=== PATIENT | female | born 1965 | race Caucasian/White ===

== ENCOUNTER 2021-06-11 21:15 | Emergency (ER) | payer OTHER, SELFPAY ==
--- NOTE | ~2021-06-11 | XR_ITS ---
EXAMINATION: XR chest 1V portable DATE: 06/11/2021 22:40 INDICATION: Shortness of breath. Wheezing. TECHNIQUE: A single frontal view of the chest was obtained. COMPARISON: Chest 2 views 11/24/2008 FINDINGS: There is no pneumonia, pleural effusion, or pneumothorax. Calcified left hilar lymph nodes are consistent with old granulomatous disease. The heart size is normal. IMPRESSION: 1. No acute cardiopulmonary disease. Reviewed, dictated and finalized at location A.
[2021-06-11 21:29] VITALS: BP 150/79; PULSE 98; RESP 28; TEMP 35.8; O2SAT 94; O2SAT 95
--- NOTE | 2021-06-11 21:32 | ECG_ITS ---
Measurements Intervals [place] Rate: 92 P: 82 WA: 155 QRS: 91 QRSD: 82 T: 75 QT: 340 QTc: 422 Interpretive Statements SINUS RHYTHM POSSIBLE LEFT ATRIAL ENLARGEMENT [-0.1mV P-WAVE IN V1/V2] BORDERLINE RIGHT AXIS DEVIATION [QRS AXIS > 90] POSSIBLE RIGHT VENTRICULAR CONDUCTION DELAY [RSR (QR) IN V1/V2] NO PREVIOUS ECG AVAILABLE FOR COMPARISON Electronically Signed On 06-12-2021 16:55:19 CDT by Todd Luciano M.D.
[2021-06-11 21:40] VITALS: PULSE 90; RESP 25; O2SAT 99
[2021-06-11] MEDS: IPRATROPIUM 0.5 MG/ALBUTEROL SULFATE 2.5 MG AMPUL.NEB 3 ML INHALATION (21:40)
[2021-06-11 21:45] VITALS: BP 112/61; PULSE 88; RESP 18; O2SAT 99
[2021-06-11 21:48] VITALS: PULSE 88; RESP 20; O2SAT 99
[2021-06-11 21:58] LABS: Base Excess ABG 0.9 mmol/L (0-2); HCO3 ABG 25.5 mmol/L (23-29); Oxygen Content ABG 16.5 %vol (16.0-22.0); Oxygen Saturation ABG 92.1 % (95-97); Oxyhemoglobin 91.5 % (94-100); PCO2 ABG 40.5 mmHg (35-45); PO2 ABG 63.5 mmHg (80-90); Total Hemoglobin 12.8 g/dL (12.0-18.0); pH ABG 7.42 (7.35-7.45)
[2021-06-11] MEDS: methylPREDNISolone SOD SUCC 125 MG VIAL IM (21:58)
[2021-06-11 22:00] LABS: Modified Allen's Test Pass; Site Drawn RIGHT RADIAL
[2021-06-11 22:01] LABS: Device ROOM AIR
[2021-06-11 22:02] LABS: Hematocrit 38.8 % (35.0-49.0); Hemoglobin 12.3 g/dL (12.0-15.0); Mean Corpuscular HGB Conc 31.7 g/dL (32.0-36.0); Mean Corpuscular Hemoglobin 29.8 pg (27.0-31.0); Mean Corpuscular Volume 93.9 fL (78.0-102.0); Mean Platelet Volume 8.7 fl (9.2-11.8); Platelet Count Result 350 K/mm3 (150-420); Red Blood Count 4.13 M/mm3 (4.20-5.40); White Blood Count 8.2 K/mm3 (4.8-10.8)
[2021-06-11 22:19] LABS: Alanine Aminotransferase 28 U/L (14-59); Albumin Level 3.2 g/dL (3.4-5.0); Alkaline Phosphatase 137 U/L (46-116); Anion Gap 6 mmol/L (8-16); Aspartate Amino Transferase 14 U/L (15-37); Bilirubin,Total 0.2 mg/dL (0.00-1.00); Blood Urea Nitrogen 13 mg/dL (7-18); Calcium 8.8 mg/dL (8.5-10.1); Carbon Dioxide 29 mmol/L (21-32); Chloride 103 mmol/L (98-108); Estimated CRCL calculation 77 ml/min; Estimated Glomerular Filt Rate > 60; Glucose 101 mg/dL (70-99); Osmolality Calculated 286 mOsm/kg (285-295); Potassium 3.9 mmol/L (3.5-5.1); Sodium 138 mmol/L (136-145); Troponin I 7.9 ng/L (0.00-60.4)
[2021-06-11 22:45] LABS: Basophils Absolute Manual 0.16 K/mm3 (0-0.1); Basophils Percent Manual 2 % (0-1); Eosinophils Absolute Manual 0.32 K/mm3 (0.02-0.5); Eosinophils Percent Manual 4 % (1-6); Lymphocytes Percent Manual 50 % (18-44); Monocytes Absolute Manual 0.73 K/mm3 (0.1-0.90); Monocytes Percent Manual 9 % (3-9); Neutrophils Percent Manual 35 % (46-73); Platelet Estimate Adequate (Adequate); Total Cells Counted 100
[2021-06-11 23:20] VITALS: PULSE 88; RESP 20; O2SAT 99
[2021-06-11 23:27] VITALS: PULSE 89; RESP 20; O2SAT 99
[2021-06-11] MEDS: LIDOCAINE HCL 1% LOCAL INJ 20 ML VIAL (23:32)
[2021-06-11] MEDS: cefTRIAXone 1 GM VIAL IM (23:33)
--- NOTE | 2021-06-11 23:43 | ED.ASTHMA ---
HPI - Asthma General Chief Complaint: Asthma Stated Complaint: whezzing trouble breathing Time Seen by Provider: 06/11/21 21:17 Source: patient, RN notes reviewed and old records reviewed Mode of arrival: ambulatory Limitations: no limitations History of Present Illness complaint: asthma attack Onset (ago): day(s) (1) Severity: moderate Associated symptoms: productive cough Treatments Prior to Arrival: inhaled bronchodilator and inhaled steroid Related Data Home Medications Medication Instructions Recorded Confirmed buspirone 5 mg tablet 5 mg PO ONCE tablet 05/11/20 cariprazine 1.5 mg capsule 1.5 mg PO DAILY 05/11/20 cyclobenzaprine 10 mg tablet 10 mg PO TID 05/11/20 estradiol 0.5 mg tablet 0.5 mg PO DAILY 05/11/20 06/11/21 gabapentin 300 mg capsule 300 mg PO BID 05/11/20 metformin 500 mg tablet 500 mg PO BID 05/11/20 06/11/21 topiramate 50 mg tablet 50 mg PO ONCE tablet 05/11/20 albuterol sulfate 90 mcg INHALATION DIRECTED 06/11/21 atorvastatin [Lipitor] 10 mg PO DIRECTED 06/11/21 06/11/21 Allergies Allergy/AdvReac Type Severity Reaction Status Date / Time No Known Allergies Allergy Verified 06/11/21 21:30 Review of Systems Review of Systems: All systems reviewed & are unremarkable except as noted in HPI and below PMFSH Past Medical History Medical History Asthma with acute exacerbation Bronchitis Social History Social History Smoking status: Never smoker Alcohol intake: never Substance use: never Exam Const: General: no acute distress and alert Nutritional Appearance: well nourished Orientation/consciousness: patient oriented x3 Limitations: no limitations HENMT: Ears: external ears normal, TM's normal bilaterally and EAC's normal General nose exam: Normal external nose present and Normal nares present Face and sinus: normal facial exam Mouth: Yes lip normal and Yes moist mucous membranes Teeth and gingiva: dentition normal Eyes: Conjunctivae: conjunctivae normal Pupils: Equal, round and reactive pupils present EOM: EOMs intact bilaterally Neck: Neck: normal visual inspection and no lymphadenopathy Chest: Chest palpation & inspection: normal inspection of the chest Resp: Effort & Inspection: tachypneic Cardio: Rate: regular rate Rhythm: regular rhythm GI: GI Palp: Yes Soft to palpation and No Tenderness to palpation present (GI) Auscultation: normal bowel sounds : General: Yes bladder normal to palpation and Yes no CVA tenderness Back/Spine/Pelvis: Back: no CVA tenderness Skin: General skin exam: normal color Neuro: General: patient oriented x3, moves all extremities, no meningeal signs, no focal motor deficits and CN's II-XI intact bilaterally Extrem: General: normal to inspection and no pedal edema Psych: Mental Status: mental status grossly normal Affect: normal affect Attitude: cooperative Thought content: No Suicidality present Course Course Emergency Course: Pt was stable in the ED with less wheezing. Reevaluation(s) Reevaluation #1: VSS Date: 06/11/21 Time: 22:13 Vital Signs Vital signs: Vital Signs Temperature 35.8 C L 06/11/21 21:29 Pulse Rate 98 06/11/21 21:29 Respiratory Rate 28 H 06/11/21 21:29 Blood Pressure 150/79 H 06/11/21 21:29 Pulse Oximetry 94 06/11/21 21:29 Temperature 35.8 C L 06/11/21 21:29 Pulse Rate 89 06/11/21 23:27 Respiratory Rate 20 06/11/21 23:27 Blood Pressure 150/79 H 06/11/21 21:29 Pulse Oximetry 99 06/11/21 23:27 MDM - Asthma Differential Diagnosis Differential diagnosis: Likely Acute exacerbation and Acute asthmatic bronchitis Medical Records Attestation: I reviewed the patient's medical records. Lab Data Attestation: I reviewed the patient's lab results. Result diagrams: 06/11/21 21:56 06/11/21 21:56 Labs: Lab Results
[2021-06-12] MEDS: IPRATROPIUM 0.5 MG/ALBUTEROL SULFATE 2.5 MG AMPUL.NEB 3 ML INHALATION (00:04)
[2021-06-12 00:07] VITALS: BP 113/84; PULSE 85; RESP 18; O2SAT 97
== END 2021-06-12 00:12 | disposition home or self-care (01) ==
PROVIDERS: Emergency Provider Emergency Medicine; PCP Physician Assistant
DX: J40 Bronchitis, not specified as acute or chronic (principal); J45.41 Moderate persistent asthma with (acute) exacerbation
CPT/HCPCS: 36415; 36600; 71045; 80053; 82805; 84484; 85025; 93005; 94640; 96372; 99284; J0696; J2930

== ENCOUNTER 2024-01-25 11:12 | Emergency (ER) | payer OTHER, SELFPAY ==
[2024-01-25 11:19] VITALS: BP 131/68; PULSE 90; RESP 22; TEMP 37.8; O2SAT 96
[2024-01-25 11:52] LABS: EDCOVIDSCREEN Negative (Negative); EDINFLUASCREEN Negative (Negative); EDINFLUBSCREEN Negative (Negative)
--- NOTE | 2024-01-25 12:26 | ED.GENADULT ---
HPI - General Adult General Chief complaint: Upper Respiratory Infection Stated complaint: Rash/Shortness of Breath Source: patient Mode of arrival: ambulatory Limitations: no limitations History of Present Illness HPI narrative: Patient presents for evaluation of multiple symptoms. Her 1st concern is regarding itching she is noted to her left forearm over last 3-4 days. She now has some symptoms starting in the right forearm. She notes ?blisters under the skin? which then evolve into scabbed lesions. She has tried an OTC eczema cream and also hydrocortisone without much improvement. No new lotions, soaps, detergents or topical products. 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 She is also concerned about sick symptoms that started around the same time. Symptoms include fever, headache, nasal congestion, clear postnasal drainage, cough, mild SOB which she attributes to asthma, nausea, and vomiting. Denies diarrhea. She does not smoke. Related Data Home Medications Medication Instructions Recorded Confirmed metformin 500 mg tablet 500 mg PO BID 05/11/20 01/25/24 armodafinil 250 mg tablet 250 mg PO DAILY 10/18/21 01/25/24 atorvastatin 20 mg tablet 20 mg PO DAILY 01/25/24 01/25/24 fluticasone furoate 100 1 inh inhalation DAILY 01/25/24 01/25/24 mcg-vilanterol 25 mcg/dose inhalation powder Allergies Allergy/AdvReac Type Severity Reaction Status Date / Time No Known Allergies Allergy Verified 01/25/24 11:47 Review of Systems Review of Systems: CONSTITUTIONAL: Reports fever. Denies chills, or sweats. EYES: Denies visual changes, redness, or discharge. ENT: Reports sinus congestion, clear postnasal drainage and sore throat CARDIOVASCULAR: Denies chest pain, palpitations, or edema. RESPIRATORY: Reports cough and mild SOB GASTROINTESTINAL: Denies abdominal pain, nausea, vomiting, or diarrhea. GENITOURINARY: Denies dysuria or hematuria. SKIN: Denies rash or itching. MUSCULOSKELETAL: Denies back pain, joint pain, or myalgia. NEUROLOGIC: Reports headache. Denies numbness, dizziness, or weakness. PSYCHIATRIC: Denies anxiety or depression. 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 HEAD: Normocephalic, atraumatic. EYES: PERRLA and EOMI. ENT: Nares clear, no rhinorrhea or epistaxis. Mucous membranes moist. Oropharynx without tonsillar hypertrophy exudate or other lesions. Bilateral TMs pearly del cid nonbulging NECK: Supple. No adenopathy or masses. No carotid bruits or JVD CHEST: Clear to auscultation. No respiratory distress. No wheezes rales or rhonchi HEART: Regular rate and rhythm. No murmur heard. Normal peripheral pulses. ABDOMEN: Soft, nontender, nondistended, normal active bowel sounds. EXTREMITIES: Normal range of motion. No edema. SKIN: There are several pinpoint areas of erythema to the bilateral forearms, left greater than right. There are also several scabbed lesions noted to bilateral forearms NEURO: No focal deficits. Alert and oriented x3. PSYCH: Normal mood and affect. Course Course Emergency Course: This is a 58-year-old female who presented for evaluation of multiple symptoms. Her rash seems to be scabies. I will provide her with a prescription for permethrin. Her influenza and COVID test were negative. I ordered a chest x-ray but shortly after ordering it she did not want to stay to have it performed. Will provide her with abx coverage that should cover skin and respiratory pathogens and cover her with prednisone Follow up with primary provider. Go to the ER for worsening symptoms. Pt in agreement with plan of care. Level of Care: Express Care Visit Vital Signs Vital signs: Vital Signs Temperature 37.8 C H 01/25/24 11:19 Pulse Rate 90 01/25/24 11:19 Respiratory Rate 22 H 01/25/24 11:19 Blood Pressure 131/68 01/25/24 11:19 Pulse Oximetry 96 01/25/24 11:19 Oxygen Delivery Room Air 01/25/24 11:19 Temperature 37.8 C H 01/25/24 11:19 Pulse Rate 90 01/25/24 11:19 Respiratory Rate 22 H 01/25/24 11:19 Blood Pressure 131/68 01/25/24 11:19 Pulse Oximetry 96 01/25/24 11:19 Oxygen Delivery Room Air 01/25/24 11:19 Medical Decision Making Vital Signs Vital Signs: Vital Signs Temperature 37.8 C H 01/25/24 11:19 Pulse Rate 90 01/25/24 11:19 Respiratory Rate 22 H 01/25/24 11:19 Blood Pressure 131/68 01/25/24 11:19 Pulse Oximetry 96 01/25/24 11:19 Oxygen Delivery Room Air 01/25/24 11:19 Temperature 37.8 C H 01/25/24 11:19 Pulse Rate 90 01/25/24 11:19 Respiratory Rate 22 H 01/25/24 11:19 Blood Pressure 131/68 01/25/24 11:19 Pulse Oximetry 96 01/25/24 11:19 Oxygen Delivery Room Air 01/25/24 11:19 Lab Data Labs: Lab Results 01/25/24 Range/Units 11:40 POC Influenza A Ag Negative (Negative) POC Influenza B Ag Negative (Negative) POC SARS CoV-2 Ag Negative (Negative) Discharge Plan Discharge Clinical Impression: Rash, History of asthma Patient Disposition: Home, Self-Care Condition: Stable Instructions: Antibiotic Form, Asthma (ED), Acute Rash (ED) Patient Language: Hungarian Prescriptions: New prednisone 50 mg tablet 50 mg PO DAILY Qty: 5 0RF amoxicillin-pot clavulanate 875-125 mg tablet 1 tablet PO Q12H Qty: 20 0RF permethrin 5 % cream 1 applic topical Q14D Qty: 60 0RF Rx Instructions: apply second treatment 14 days after first treatment if live lice remain No Action albuterol sulfate 90 mcg/actuation HFA aerosol inhaler 2 puff inhalation Q4H PRN (Reason: shortness of breath or wheezing) Qty: 8.5 0RF atorvastatin 20 mg tablet 20 mg PO DAILY fluticasone furoate-vilanterol 100-25 mcg/dose blister with device 1 inh INHALATION DAILY metformin 500 mg tablet 500 mg PO BID armodafinil 250 mg tablet 250 mg PO DAILY Follow-up/Referrals: Hamida,CINDI Fletcher [Primary Care Provider] - Time of Disposition: 12:53
== END 2024-01-25 12:55 | disposition home or self-care (01) ==
PROVIDERS: Emergency Provider Nurse Practitioner; PCP Physician Assistant
DX: R21 Rash and other nonspecific skin eruption (principal); J45.909 Unspecified asthma, uncomplicated; Z20.822 Contact with and (suspected) exposure to COVID-19
CPT/HCPCS: 87426; 87804; 99213; G0463

== ENCOUNTER 2024-05-26 16:25 | Outpatient (CLI) | payer OTHER, SELFPAY ==
[2024-05-26 16:43] LABS: Basophils Absolute Auto 0.05 K/mm3 (0.00-0.10); Basophils Percent Auto 0.3 % (0.0-1.0); Eosinophils Absolute Auto 0.22 K/mm3 (0.02-0.50); Eosinophils Percent Auto 1.5 % (1.0-6.0); Hematocrit 39.5 % (35.0-49.0); Hemoglobin 12.9 g/dL (12.0-15.0); Immature Granulocyte Absolute 0.06 K/mm3 (0.00-0.00); Immature Granulocyte Percent A 0.4 % (0.0-0.0); Lymphocytes Absolute Auto 3.52 K/mm3 (1.10-4.50); Mean Corpuscular HGB Conc 32.7 g/dL (32-36); Mean Corpuscular Hemoglobin 28.8 pg (27.0-31.0); Mean Corpuscular Volume 88.2 fL (78.0-102.0); Mean Platelet Volume 8.5 fl (9.2-11.8); Monocytes Absolute Auto 1.24 K/mm3 (0.10-0.90); Monocytes Percent Auto 8.4 % (2.0-11.0); Neutrophils Percent Auto 65.4 % (50.0-70.0); Platelet Count Result 395 K/mm3 (150-420); Red Blood Count 4.48 M/mm3 (4.20-5.40); Red Cell Distribution Width 13.2 % (11.6-14.4); White Blood Count 14.7 K/mm3 (4.8-10.8)
[2024-05-26 17:02] LABS: Hemoglobin A1C 7.9 % (<5.7)
[2024-05-26 17:03] LABS: Alanine Aminotransferase 27 U/L (14-59); Albumin Level 3.6 g/dL (3.4-5.0); Alkaline Phosphatase 178 U/L (46-116); Anion Gap 12 mmol/L (4-12); Aspartate Amino Transferase 11 U/L (15-37); Bilirubin,Total 0.3 mg/dL (0.00-1.00); Blood Urea Nitrogen 10 mg/dL (7-18); Calcium 9.4 mg/dL (8.5-10.1); Carbon Dioxide 28 mmol/L (21-32); Chloride 98 mmol/L (98-108); Cholesterol 173 mg/dL (0-200); Estimated Glomerular Filt Rate > 60; Glucose 102 mg/dL (70-99); HDL Direct 75 mg/dL (40-60); LDL Cholesterol Calculated 76 mg/dL (<130); Osmolality Calculated 285 mOsm/kg (285-295); Potassium 3.8 mmol/L (3.5-5.1); Sodium 138 mmol/L (136-145); Total Protein 7.4 g/dL (6.4-8.2); Triglycerides 110 mg/dL (0-150)
--- OUTSIDE RECORDS SUMMARY | 2024-05-26 17:06 | XMS_ITS | Clinical Summary ---
Author Organization [facility] Address [address] [facility], [place] [address] Phone Care Team Providers Care Lead Mobile Developer Name Role Phone Claudia Gonzalez APRN, ACADEMIC SERVICES PROFESSIONAL Unavailable [phone] Allergies No known active allergies Medications armodafinil (NUVIGIL) 150 MG Tablet armodafinil 150 mg tablet Active ergocalciferol (VITAMIN D) 54251 UNIT Capsule TAKE 1 CAPSULE BY MOUTH ONCE A WEEK 0 Active estradiol (ESTRACE) 1 MG Tablet estradiol 1 mg tablet Active gabapentin (NEURONTIN) 300 MG Capsule gabapentin 300 mg capsule Active metFORMIN (GLUCOPHAGE) 500 MG Tablet metformin 500 mg tablet Active Topiramate 50 MG Tablet TAKE 1 TABLET BY MOUTH ONCE DAILY 0 Active VIIBRYD STARTER PACK 10 & 20 MG Kit TAKE DIRECTED EVERY DAY PER PACKAGE DIRECTIONS 0 Active medroxyPROGESTE Gary (PROVERA) 2.5 MG Tablet TAKE 1 TABLET BY MOUTH ONCE DAILY 0 Active Active Problems Problem Noted Date Diagnosed Date Low testosterone level in female 07/02/2019 Menopause 07/02/2019 Class 1 obesity due to exces s calories with serious comorbidity and body mass index (BMI) of 30.0 to 30.9 in adult 07/02/2019 Type 2 diabetes mellitus wit h diabetic polyneuropathy, without long-term current use of insulin 07/02/2019 Family History Medical History Relation Name Comments No Known Problems Brother 1 No Known Problems Brother 2 Heart Attack Father Stroke Maternal Grandmother Cancer Mother Throat cancer Relation Name Status Comments Brother 1 Alive Brother 2 Alive Father Maternal Grandmother Mother Alive Social History Tobacco Use Types Packs/Day Years Used Date Smoking Tobacco: Former Cigarettes Smokeless Tobacco: Never Tobacco Cessation:Counseling Given: No Alcohol Use Standard Drinks/Week Comments Not Currently 0 (1 standard drink = 0.6 oz pur e alcohol) Sexually Active Control Partners Comments Yes Male Comments No Sex and Gender Information Value Date Recorded Sex Assigned at Not on file Legal Sex Female 9:26 AM CDT Gender Identity Not on file Sexual Orientation Not on file Last Filed Vital Signs Vital Sign Reading Time Taken Comments Blood Pressure 124/78 07/02/2019 1:14 PM CDT Pulse 99 07/02/2019 1:14 PM CDT Temperature 36.2 C (97.2 F) 07/02/2019 1:14 PM CDT Respiratory Rate 16 07/02/2019 1:14 PM CDT Oxygen Saturation 94% 07/02/2019 1:14 PM CDT Inhaled Oxygen Concentration - - Weight 82.6 kg (182 lb) 07/02/2019 1:14 PM CDT Height 165.1 cm (5' 5 ) 07/02/2019 1:14 PM CDT Body Mass Index 30.29 07/02/2019 1:14 PM CDT Plan of Treatment Health Maintenance Due Date Last Done Comments Diabetes: Eye Exam 1965 Diabetes: Foot Exam 1965 Hepatitis C Virus (HCV) Screening 1965 TdaP Immunization 1965 Pneumococcal Immunization (5 0+ years) (1 of 2 - PCV) 11/23/1982 Colonoscopy 11/23/2008 Colorectal Cancer Screening 11/23/2008 Cologuard 11/23/2013 Immunochemical Fecal Occult Blood 11/23/2013 Zoster Immunization (1 of 2) 11/23/2013 Diabetes: Hemoglobin A1c 09/22/2019 03/24/2019 Diabetes: Nephropathy Screening 03/24/2020 0 Influenza Immunization (#1) 2023 SARS-COV-2 Immunization ( - season) 2023 Respiratory Syncytial Virus (RSV) Immunization (Adult) (1 - Risk 60-74 years 1-dose series) 2023 Hepatitis B Immunization Aged Out No longer eligible based on patient's age to complete this topic Meningococcal Immunization (ACWY) Aged Out No longer eligible based on patient's age to complete this topic Rotavirus Immunization Aged Out No lo nger eligible based on patient's age to complete this topic Procedures Procedure Name Priority Date/Time Associated Diagnosis Comments CMP (COMPREHENSIVE METABOLIC PANEL) Routine 03/24/2019 HEMOGLOBIN, A1C Routine 03/24/2019 from Last 3 Months or Most Recently Relevant to Health Maintenance Results * HEMOGLOBIN, A1C (03/24/2019) HGB-A1C 6.5 % Blood 03/24/2019 Holley Patel APRN, CNP CHEMISTRY ORDERABLES F inal Result * CMP (COMPREHENSIVE METABOLIC PANEL) (03/24/2019) Blood us Holley Patel APRN, CNP CHEMISTRY ORDERABLES F inal Result from Last 3 Months or Most Recently Relevant to Health Maintenance Insurance [employer] Care Teams Lead Mobile Developer Relationship Specialty Start Date End Date Claudia Gonzalez APRN, CNP [address] [place] [address] [place] [address] Job Development Specialist Family Medicine 05/05/19
--- OUTSIDE RECORDS SUMMARY | 2024-05-26 17:06 | XMS_ITS | Encounter Summary ---
Author Organization [facility] Address [address] [place] [address] Care Team Providers Care Teletypesetter Name Role Phone None, Provider Primary Care Provider Unavaila ble Justine Mei Primary Care Provider [phone] Encounter Details Date Type Department Care Team (Latest Contact Info) Description 10/24/2017 Abstract [facility] , Generic Conversion, Social History Tobacco Use Types Packs/Day Years Used Date Smoking Tobacco: Never Assessed Comments Unknown Sex and Gender Information Value Date Recorded Sex Assigned at Not on file Legal Sex Female 8:55 PM CDT Gender Identity Not on file Sexual Orientation Not on file documented as of this encounter Plan of Treatment Not on file documented as of this encounter Visit Diagnoses Not on filedocumented in this encounter Care Teams Teletypesetter Relationship Specialty Start Date End Date None, Provider, PCP - General 12/17/17 02/12/18 Justine Mei PA [address] [place] [address] PCP - General 02/13/18 documented as of this encounter
--- OUTSIDE RECORDS SUMMARY | 2024-05-26 17:06 | XMS_ITS | Continuity of Care Document ---
Author Organization [facility] Address [address] [place] [address] [place] [address] Phone Care Team Providers Care Tax Processor Name Role Phone Joseph Torres MD Unavailable Unavailable Allergies, Adverse Reactions, Alerts Substance Reaction Status Criticality No Known Allergies Active No Inform ation Medications Medication Instructions Dosage Effective Dates (start - stop) Status Comments atorvastatin 10 mg tablet take 1 tablet by oral route every day 10 MG - Active armodafinil 250 mg tablet take 1 tablet by oral route every day in the morning 250 MG - Active fluoxetine 20 mg capsule take 1 capsule by oral route every day in the morning 20 MG - Active topiramate 50 mg tablet take 1 tablet by oral route every day 50 MG - Active Vraylar 3 mg capsule take 1 capsule by o ral route every day 3 MG - Active metformin 500 mg tablet take 1 tablet by oral route 2 times every day with morning and evening meals 500 MG - Active losartan 50 mg tablet take 1 tablet by o ral route every day 50 MG - Active Procedures Procedure Date No Charge Optomap Fundus Photos 022 Eye Exam, New Patient Advance Directives Directive Yes / No Effective Date File Name No Information Encounters Encounter Description Practice Location Reason(s) For Visit Diagnoses Date Provider Providers Copied on Encounter [facility], [id number] [place] [address] [address], [place], [place], [id number], [place] tel:[phone] SEC Javed PRATHER Professional Diabetic eye exam (chief complaint) Type 2 diabetes mellitus without complications Combined forms of age-related cataract, bilateral 2 Torres Joseph. [address] [facility], [facility], [place], [place], [id number], . tel:[phone] Referring Provider: Rosie Mahmood OD, [facility] [address] [place] [address], [address]. tel:[phone] [facility], [address], [place], [place], [id number], tel:[phone] SEC Javed PA Professional No Information 2 Brian Ruiz. [address] [facility], [facility], [place], [place], [id number], [place]. tel:[phone] Referring Provider: Rosie Mahmood OD, [address], [address]. tel:[phone] Family History Family Member Type Diagnosis Age At Onset Problem Family history of Diabetes bambi marquez Payers Payer name Insurance type Covered republican ID Cristóbal richey(s) [employer] SOI CI [id number] Social History Type Description Quantity Date Captured Comments Alcohol Use Details No Caffeine Use Details coffee and tea Tobacco Use Status Current non-smoker Smoking Status Never smoker Non-Smoking Tobacco Use Details : No Details Available : No Details Available Sex Female Chief Complaint And Reason For Visit From encounter dated '06/26/2021 08:00'. Diabetic eye exam (chief complaint). Description: The 55 year old patient presents for evaluation of Diabetic eye exam in the right eye and left eye. Patient states night VA sometimes is blurry, eyesare dry, and eyelids are drooping. Patient is a Type 2 diab x 3 years, BS checked last night @ 180,a1c 5.6, and her PCP treats her diab, Patient does not known the doctors name she located at [facility] in [place]. Reason For Referral Reason For Referral No Information Plan Of Treatment Date Type Action Status Patient Education Learning About Your Eye s completed History Of Present Illness Encounter Date Complaint History Of Prese nt Illness Diabetic eye exam The 55 year ol d patient presents for evaluation of Diabetic eye exam in the right eye and left eye. Patient states night VA sometimes is blurry, eyes are dry, and eyelids are drooping. Patient is a Type 2 diab x 3 years, BS checked last night @ 180, a1c 5.6, and her PCP treats her diab, Patient does not known the doctors name she located at [facility] in [place]. Functional Status Date Functional Assessmen t No Information Instructions Date Instruction Additional Infor mation Impression/Plan Assessments Type Assessment Date assessment Type 2 diabetes mellitus without complications assessment Combined forms of age-related ca taract, bilateral Patient Care Teams Name Effective Dates (start - stop) Status Members No Information
--- OUTSIDE RECORDS SUMMARY | 2024-05-26 17:07 | XMS_ITS | Data Portability ---
Author Organization [facility] LORNAHelga Address [address] [place] [address] Care Team Providers Care Disk Grinder Name Role Phone CLAUDIA COLVIN Police Magistrate COLLEEN SINGH Primary Care Provider Assessment No assessment recorded. Plan of Treatment Reminders Order Date Submit Date Provider Last Modified By Organization Details Last Modified Time Details Appointments None record ed. 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, respir atory specim - [place] @ no 10/20 020 [facility] (Lab), [address] [place], [address], 0 09:55:30 CMP, serum or plasma 2019 020 [facility], [address] [facility] [address], [address], 0 13:07:51 CBC 2019 020 VANESSA [facility], [address] [facility] 2, [place], [address], 0 13:07:52 TSH, serum or plasma 2019 020 V[facility], [address] [facility], [facility] 2, [place], [address], 0 13:07:53 lipid panel, serum 2019 020 VANESSA [facility], [address] [facility], [facility] 2, [place], [address], 0 13:07:53 HbA1c (hemog lobin A1c), blood 2019 020 VANESSA In-Office Order, Internal Use Only DO Not Attach Compendium DO Not Attach Compendium, Do Not Delete/merge, [id number] 0 11:20:12 pap, IG + HPV 2019 020 [id number] [facility], [address] [facility], [facility] 2, [place], [address], 1 03:32:30 Referral urogyn ecolog ist referr al 2019 020 VANESSA Not available 0 13:38:40 endocr inolog y referr al 2019 020 [facility], 2 [facility] [address], [place], [address], 0 08:43:26 Procedures None record ed. Surgeries None record ed. Imaging XR, chest, 2 view 2020 021 VANESSA Alvarez (Radiology), 1 [facility] [place], [address], 1 14:26:59 exerci se stress test 2020 021 VANESSA [facility] (Radiology), 1 [facility] [place], [address], 1 14:06:17 MAMMO, screen ing, digita l, bilate ral 2019 020 [email or web address] Alvarez (Radiology), 1 [facility] [place], [address], 0 11:25:54 Medication Orders ciprof loxaci n 0.3 % eye drops [address] [facility], [address] [place] [address], [address], 1 16:16:33 Advair Diskus 250 mcg-50 mcg/do se powder for inhala tion [address] [facility], [address] [place] [address], [address], 1 16:16:23 albute rol sulfat e HFA 90 mcg/ac tuatio n aeroso l inhale r 2019 020 INTERFACE [facility] [address] [place], [address], 0 16:01:42 amoxic illin 875 mg tablet 2019 INTERFACE [facility] [place], [address], 0 16:01:51 ceftri axone 1 gram soluti on for inject ion 2019 [email or web address] Not available 0 15:52:44 Patient TargetsNo targets recorded. Patient Instructions Encounter Date Encounter Id Patient Instructions Last Modified By Organization Details Last Modified Time 05/01/2019 [id number] mammogram: about this test rosy Not available 05/01/2019 11:25:54 bladder training: care instructions [email or web address] Not available 05/01/2019 10:54:24 kegel exercises: care instructions [email or web address] Not available 05/01/2019 10:54:24 Stress Incontinence: Care Instructions [email or web address] Not available 05/01/2019 10:54:24 05/27/2019 [id number] learning about type 2 diabetes jnanney Not available 05/27/2019 10:51:28 type 2 diabetes: care instructions jnanney Not available 05/27/2019 10:51:28 10/20/2019 [id number] Reviewed the following recommendations: -Stay home and separate from others as much as possible. -Monitor your symptoms and seek medical attention for trouble breathing, persistent chest pain, confusion, or bluish lips or face. -Wear a mask if you must be around other people. -Wash your hands often for 20 seconds with soap and water and clean high-touch surfaces daily -You may discontinue home isolation if your symptoms are improving, it has been 10 days since symptoms started, and you have been fever free for at least 3 days. [email or web address] Not available 10/20/2019 16:11:34 Reason for Referral Urogynecologist Referral for Female stress incontinence Referring Physician: Claudia Colvin, Telegraph Dispatcher, Encounter Date: 05/01/2019 Endocrinology Referral for T estosterone level below reference range Referring Physician: Claudia Colvin, Telegraph Dispatcher, Encounter Date: 05/01/2019 Results Created Date Observation Date Name Description Value Unit Range Abnormal Flag Note LastModifiedBy Organization Detail LastModifiedTime 05/01/1905/05/2019 pap, IG + HPV diagnosis: Jesus ARCOS FOR INTRA EPITH ELIJARET [place] OR RUBEN LOPES . Not Available [facility] ([facility]) [address] [facility], [place], [address], 05/05/2019 11:08:59 05/01/1905/05/2019 pap, IG + HPV specimen adequacy: Jesus haq Satis facto ry for evalu ation . Endoc ervic al and/o r squam ous metap lasti c cells (endo cervi arin compo nent) are prese nt. Not Available [facility] ([facility]) [address] [facility], [place], [address], 05/05/2019 11:08:59 05/01/19 20 05/05/2019 pap, IG + HPV clinician provided ICD10: Jesus haq Z01.4 19 Not Available [facility] ([facility]) [address] [facility], [place], [address], 05/05/2019 11:08:59 05/01/19 20 05/05/2019 pap, IG + HPV performed by: Commen t Shelli M Panfilo , Cytot echno logis t (ASCP ) Not Available [facility] ([facility]) [address] [facility], [place], [address], 05/05/2019 11:08:59 05/01/19 20 05/05/2019 pap, IG + HPV . . Not Available [facility] ([facility]) [address] [facility], [place], [address], 05/05/2019 11:08:59 05/01/19 20 05/05/2019 pap, IG + HPV note: Commen t The Pap smear is a scree hilda test desig stoney to aid in the detec tion of kulwant ligna nt and malig nant condi tions of the uteri ne cervi x. It is not a diagn ostic proce dure and shoul d not be used as the sole means of detec ting cervi arin cance r. Both false -posi tive and false -nega tive repor ts do occur . Not Available [facility] ([facility]) [address] [facility], [place], [address], 05/05/2019 11:08:59 05/01/19 20 05/05/2019 pap, IG + HPV test methodology: Commen t This liqui d based ThinP rep(R ) pap test was scree stoney with the use of an image guide alejandra lacy. Not Available [facility] ([facility]) [address] [facility], [place], [address], 05/05/2019 11:08:59 05/01/19 20 05/05/2019 pap, IG + HPV HPV aptima Negati ve negati ve This nucle ic acid ampli ficat ion test detec ts fourt een high- risk HPV types (16,1 8,31, 33,35 ,39,4 5,51, 52,56 ,58,5 9,66, 68) witho ut diffe renti ation . Not Available [facility] ([facility]) [address] [facility], [place], [address], 05/05/2019 11:08:59 05/27/19 20 05/28/2019 CMP, serum or plasm a glucose 136 mg/dL 65-99 above high normal Not Available [facility] ([facility]) [address] [place], [address], 05/29/2019 13:07:51 05/27/19 20 05/28/2019 CMP, serum or plasm a BUN 10 mg/dL 6-24 Not Available [facility] ([facility]) [address] [place], [address], 05/29/2019 13:07:51 05/27/19 20 05/28/2019 CMP, serum or plasm a creatinine 0.71 mg/dL 0.57-1 .00 Not Available [facility] ([facility]) [address] [place], [address], 05/29/2019 13:07:51 05/27/19 20 05/28/2019 CMP, serum or plasm a eGFR if nonafricn AM 96 mL/mi n/1.7 3 >59 Not Available [facility] ([facility]) [address] [place], [address], 05/29/2019 13:07:51 05/27/19 20 05/28/2019 CMP, serum or plasm a eGFR if africn AM 111 mL/mi n/1.7 3 >59 Not Available [facility] ([facility]) [address] [place], [address], 05/29/2019 13:07:51 05/27/19 20 05/28/2019 CMP, serum or plasm a BUN/creatini ne ratio 14 9-23 Not Available [facility] ([facility]) [address] [place], [address], 05/29/2019 13:07:51 05/27/19 20 05/28/2019 CMP, serum or plasm a sodium 143 mmol/ L 134-14 4 Not Available [facility] ([facility]) [address] [place], [address], 05/29/2019 13:07:51 05/27/19 20 05/28/2019 CMP, serum or plasm a potassium 4.6 mmol/ L 3.5-5. 2 Not Available [facility] ([facility]) [address] [facility] [place], [address], 05/29/2019 13:07:51 05/27/19 20 05/28/2019 CMP, serum or plasm a chloride 103 mmol/ L 96-106 Not Available [facility] ([facility]) [address] [place], [address], 05/29/2019 13:07:51 05/27/1905/28/2019 CMP, serum or plasm a carbon dioxide, total 25 mmol/ L 20-29 Not Available [facility] ([facility]) [address] [place], [address], 05/29/2019 13:07:51 05/27/19 20 05/28/2019 CMP, serum or plasm a calcium 9.4 mg/dL 8.7-10 .2 Not Available [facility] ([facility]) [address] [place], [address], 05/29/2019 13:07:51 05/27/19 20 05/28/2019 CMP, serum or plasm a protein, total 6.9 g/dL 6.0-8. 5 Not Available [facility] ([facility]) [address] [place], [address], 05/29/2019 13:07:51 05/27/19 20 05/28/2019 CMP, serum or plasm a albumin 4.1 g/dL 3.8-4. 9 Not Available [facility] ([facility]) [address] [place], [address], 05/29/2019 13:07:51 05/27/19 20 05/28/2019 CMP, serum or plasm a globulin, total 2.8 g/dL 1.5-4. 5 Not Available [facility] ([facility]) [address] [facility] [place], [address], 05/29/2019 13:07:51 05/27/19 20 05/28/2019 CMP, serum or plasm a A/G ratio 1.5 1.2-2. 2 Not Available [facility] ([facility]) [address] [facility] [place], [address], 05/29/2019 13:07:51 05/27/19 20 05/28/2019 CMP, serum or plasm a bilirubin, total <0.2 mg/dL 0.0-1. 2 Not Available [facility] ([facility]) [address] [facility], [place], [address], 05/29/2019 13:07:51 05/27/19 20 05/28/2019 CMP, serum or plasm a alkaline phosphatase 108 IU/L 39-117 Not Available [facility]) [address] [facility] [place], [address], 05/29/2019 13:07:51 05/27/19 20 05/28/2019 CMP, serum or plasm a AST (SGOT) 14 IU/L 0-40 Not Available [facility] ([facility]) [address] [facility] [place], [address], 05/29/2019 13:07:51 05/27/19 20 05/28/2019 CMP, serum or plasm a ALT (SGPT) 14 IU/L 0-32 Not Available [facility] ([facility]) [address] [facility] [place], [address], 05/29/2019 13:07:51 05/27/19 20 05/28/2019 CBC WBC 4.6 x10e3 /uL 3.4-10 .8 Not Available [facility] ([facility]) [address] [facility] [place], [address], 05/29/2019 13:07:52 05/27/1905/28/2019 CBC RBC 4.32 x10e6 /uL 3.77-5 .28 Not Available [facility] ([facility]) [address] [facility], [place], [address], 05/29/2019 13:07:52 05/27/19 20 05/28/2019 CBC hemoglobin 13.3 g/dL 11.1-1 5.9 Not Available [facility] ([facility]) [address] [facility], [place], [address], 05/29/2019 13:07:52 05/27/1905/28/2019 CBC hematocrit 39.7 % 34.0-4 6.6 Not Available [facility] ([facility]) [address] [facility], [place], [address], 05/29/2019 13:07:52 05/27/1905/28/2019 CBC MCV 92 fL 79-97 Not Available [facility] ([facility]) [address] [facility], [place], [address], 05/29/2019 13:07:52 05/27/1905/28/2019 CBC MCH 30.8 pg 26.6-3 3.0 Not Available [facility] ([facility]) [address] [facility], [place], [address], 05/29/2019 13:07:52 05/27/1905/28/2019 CBC MCHC 33.5 g/dL 31.5-3 5.7 Not Available [facility] ([facility]) [address] [place], [address], 05/29/2019 13:07:52 05/27/1905/28/2019 CBC RDW 13.0 % 11.7-1 5.4 Not Available [facility] ([facility]) [address] [place], [address], 05/29/2019 13:07:52 05/27/1905/28/2019 CBC platelets 372 x10e3 /uL 150-45 0 Not Available [facility] ([facility]) [address] [facility], [place], [address], 05/29/2019 13:07:52 05/27/19 20 05/28/2019 CBC NRBC ELECTRONIC WARFARE 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 Not Available [facility] ([facility]) [address] [facility], [place], [address], 05/29/2019 13:07:52 05/27/19 20 05/28/2019 lipid panel , serum cholesterol, total 179 mg/dL 100-19 9 Not Available [facility] ([facility]) [address] [facility], [place], [address], 05/29/2019 13:07:53 05/27/19 20 05/28/2019 lipid panel , serum triglyceride s 94 mg/dL 0-149 Not Available [facility]) [address] [facility], [place], [address], 05/29/2019 13:07:53 05/27/19 20 05/28/2019 lipid panel , serum HDL cholesterol 71 mg/dL >39 Not Available [facility]) [address] [facility], [place], [address], 05/29/2019 13:07:53 05/27/19 20 05/28/2019 lipid panel , serum VLDL cholesterol arin 19 mg/dL 5-40 Not Available [facility] ([facility]) [address] [facility], [place], [address], 05/29/2019 13:07:53 05/27/19 20 05/28/2019 lipid panel , serum LDL cholesterol calc 89 mg/dL 0-99 Not Available [facility] ([facility]) [address] [place], [address], 05/29/2019 13:07:53 05/27/19 20 05/28/2019 lipid panel , serum comment: ELECTRONIC WARFARE OFFICER Not Available [facility] ([facility]) [address] [facility], [place], [address], 05/29/2019 13:07:53 05/27/1905/29/2019 TSH, serum or plasm a TSH-icma 1.6 uu/mL Refer ence Range : Non-P regna nt Adult 0.450 -4.50 0 Pregn kimberly First Trime ster 0.100 -4.00 0 Secon d Trime ster 0.200 -4.00 0 Third Trime ster 0.300 -4.50 0 Not Available [facility] [address] [facility], [place], [address], 05/29/2019 13:07:53 05/27/19 20 05/28/2019 cardi ovasc ular asses sment panel , serum interpretati on Note Suppl ement al repor t is avail able. Not Available [facility] ([facility]) [address] [facility], [place], [address], 05/29/2019 13:07:54 05/27/19 20 05/28/2019 cardi ovasc ular asses sment panel , serum pdf image . Not Available [facility] ([facility]) [address] [facility], [place], [address], 05/29/2019 13:07:54 05/27/19 20 05/27/2019 HbA1c (hemo globi n A1c), blood HbA1c 6.6 Not Available In-Office Order Internal Use Only DO Not Attach Compendium DO Not Attach Compendium, Do Not Delete/merge, [id number] 05/27/2019 10:49:17 05/30/1906/14/2019 fecal occul t blood , immun oassa y, stool occult blood, fecal, ia Negati ve negati ve Not Available [facility] ([facility]) [address] [facility], [place], [address], 06/15/2019 15:07:48 05/30/19 20 06/12/2019 one speci men ident ifier one specimen identifier Commen t The speci men recei brea inclu ded only one patie nt ident ifier on the prima ry colle ction conta iner. Our labor atory accre ditin g agenc y state s All prima ry speci men conta iners must be label ed with 2 ident ifier s at the time of colle ction . 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 A negat junito resul t does not precl ude the possi bilit y of 2019- nCoV infec tion since the adequ acy of sampl e colle ction and/o r low viral burde n may resul t in the prese nce of viral nucle ic acids level s below the gary tical sensi tivit y of this test metho d. 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 This test is only autho rized for the durat ion of the decla ratio n and the circu mstan karen that exist to justi fy the autho rizat ion of the emerg ency use of in vitro diagn ostic tests for the detec tion of SARS- CoV-2 virus and/o r diagn osis of COVID -19 infec tion under secti on 564 (b) (1) of the Act. 11 U.S.C . 360bb b-3 (b) (1), unles s the autho rizat ion is termi nated or revok ed soone r. 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 This testi ng was perfo rmed in the [facility] [place] [address] (CLIA Licen se #[id number], CAP #[id number], AU-ID #[id number]). 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 [address] [place], [address], 05/05/2020 16:44:44 04/21/19 21 04/20/2020 XR, chest , 2 view No observ ation record ed. [address] [place], [address], 04/22/2020 17:00:56 Result Notes None recorded. Problems Name Problem SNOMED Code Status Onset Date Resolution Date Notes Provider Name and Address Organization Details Recorded Time Pain in pelvis [id number] Active Not Available [facility] 01/13/2020 15:46:24 Problem Notes None recorded. Procedures Surgical History Date Name Laterality Status Provider Name and Address Organization Details Recorded Time 0 Date of Last Mammogram completed Raysa Noe [place] - [facility] 03/18/2020 15:28:20 0 Date of Last Pap Smear completed Raysa Noe MA [place] - [facility] 03/18/2020 15:28:14 5 Most Recent Mammogram completed Neeru Nguyen [place] - [facility] 08/18/2015 10:43:32 Tubal Ligation completed Neeru Nguyen [place] - [facility] 08/18/2015 10:43:32 Imaging Results Imaging Date Name Status LastModified by Organiz ation Details LastModified Time 04/20/2020 exercise stress test completed [address] [place], [address], 05/05/2020 16:44:44 04/20/2020 XR, chest, 2 view completed [address] [place], [address], 04/22/2020 17:00:56 Procedure Notes None recorded. Medical Equipment None Reported. Allergies No known drug allergies Medications Name Sig Start Date Stop Date Status Note LastModified by Organization Details LastModified Time fluoxetine 40 mg capsule 05/08 completed Not Available Not Available Not Available cyclobenzap rine 10 mg tablet TAKE 1 TABLET BY MOUTH THREE TIMES DAILY active Not Available Not Available No t Available buspirone 5 mg tablet Take 1 tablet twice a day by oral route for 30 days. active Not Available Not Available No t Available metformin 500 mg tablet TAKE 1 TABLET BY MOUTH TWICE DAILY (WITH MORNING MEAL AND WITH EVENING MEAL) active Not Available Not Available No t Available paroxetine 10 mg tablet TAKE 1 TABLET BY MOUTH EVERY DAY AT BEDTIME 03/18 completed Not Available Not Available Not Available clindamycin HCl 300 mg capsule Take 1 capsule every 6 hours by oral route for 10 days. active Not Available Not Available No t Available trazodone 50 mg tablet 05/08 completed Not Available Not Available Not Available azithromyci n 250 mg tablet TAKE 2 TABLETS BY MOUTH ON DAY 1 AND THEN TAKE 1 TABLET BY MOUTH ONCE A DAY ON DAY 2 THROUGH DAY 5 active Not Available Not Available No t Available medroxyprog esterone 2.5 mg tablet Take 1 tablet every day by oral route. 10/18 completed Not Available Not Available Not Available prednisone 20 mg tablet TAKE 3 TABLETS BY MOUTH ONCE DAILY FOR 7 DAYS 03/18 completed Not Available Not Available Not Available sertraline 100 mg tablet TAKE 1 TABLET BY MOUTH AT BEDTIME AFTER COMPLETIN G THE 2 WEEKS AT 75 MG active Not Available Not Available No t Available prednisone 5 mg tablet 05/08 completed Not Available Not Available Not Available clindamycin HCl 150 mg capsule 08/03 completed Not Available Not Available Not Available topiramate 25 mg tablet 10/18 completed Not Available Not Available Not Available ciprofloxac in 500 mg tablet Take 1 tablet every 12 hours by oral route for 10 days. 03/18 completed Not Available Not Available Not Available triamcinolo ne acetonide 0.1 % topical cream 05/26 completed Not Available Not Available Not Available acyclovir 800 mg tablet Take 1 tablet 5 times a day by oral route for 5 days. 03/18 completed Not Available Not Available Not Available cyproheptad ine 4 mg tablet 05/08 completed Not Available Not Available Not Available meloxicam 7.5 mg tablet 10/18 completed Not Available Not Available Not Available alprazolam 0.5 mg tablet 10/18 completed Not Available Not Available Not Available Guaiatussin AC 10 mg-100 mg/5 mL oral liquid Take 10 mL every 4 hours by oral route. 03/25 completed Not Available Not Available Not Available ceftriaxone 1 gram solution for injection Take 1 g by injection route. 10/18 completed Not Available Not Available Not Available amoxicillin 875 mg tablet Take 1 tablet every 12 hours by oral route for 10 days. active Not Available Not Available No t Available estradiol 1 mg tablet Take 1 tablet by mouth once daily. PLEASE CALL OFFICE FOR APPOINTME NT 2020 active Not Available Not Available Not Avai lable ciprofloxac in 0.3 % eye drops INSTILL 1 DROP INTO AFFECTED Ear tid for 7 days active Not Available Not Available No t Available OneTouch Ultra Test strips TEST BLOOD SUGAR EVERY DAY BEFORE BREAKFAST AND AFTER LUNCH OR DINNER active Not Available Not Available No t Available benzonatate 100 mg capsule 10/18 completed Not Available Not Available Not Available levothyroxi ne 50 mcg tablet 05/08 completed Not Available Not Available Not Available paroxetine 20 mg tablet 10/18 completed Not Available Not Available Not Available fluoxetine 20 mg tablet 05/08 completed Not Available Not Available Not Available metformin 1,000 mg tablet TAKE 1 TABLET BY MOUTH TWICE DAILY (WITH MORNING MEAL AND WITH EVENING MEAL) active Not Available Not Available No t Available buspirone 10 mg tablet 05/26 completed Not Available Not Available Not Available Advair Diskus 250 mcg-50 mcg/dose powder for inhalation Inhale 1 puff twice a day by inhalatio n route. active Not Available Not Available No t Available gabapentin 300 mg capsule TAKE 1 CAPSULE BY MOUTH ONCE DAILY active Not Available Not Available No t Available sertraline 25 mg tablet TAKE 1 2 (ONE HALF) TABLET BY MOUTH AT BEDTIME FOR 1 WEEK THEN 1 TABLET DAILY FOR 1 WEEK active Not Available Not Available No t Available hydrocortis one 2.5 % topical cream APPLY A THIN LAYER TO THE AFFECTED AREA(S) BY TOPICAL ROUTE 2 TIMES PER DAY 03/25 completed Not Available Not Available Not Available montelukast 10 mg tablet 10/18 completed Not Available Not Available Not Available hydroxyzine HCl 25 mg tablet 05/08 completed Not Available Not Available Not Available estradiol 0.5 mg tablet TAKE ONE TABLET BY MOUTH ONCE DAILY DIRECTED 05/08 completed Not Available Not Available Not Available methylpredn isolone 4 mg tablets in a dose pack 03/25 completed Not Available Not Available Not Available albuterol sulfate HFA 90 mcg/actuati on aerosol inhaler INHALE 2 PUFFS BY MOUTH EVERY 4 TO 6 HOURS NEEDED active Not Available Not Available No t Available Vitamin D2 1,250 mcg (50,000 unit) capsule active Not Available Not Available Not Available fluoxetine 20 mg capsule TAKE ONE CAPSULE BY MOUTH ONCE DAILY IN THE MORNING 10/18 completed Not Available Not Available Not Available fluticasone propionate 50 mcg/actuati on nasal spray,suspe nsion [place] 1 spray every day by intranasa l route as directed. 05/26 completed Not Available Not Available Not Available sertraline 50 mg tablet TAKE 1 & 1 2 (ONE & ONE HALF) TABLETS BY MOUTH ONCE DAILY FOR 2 WEEKS active Not Available Not Available No t Available amoxicillin 875 mg-potassiu m clavulanate 125 mg tablet Take 1 tablet every 12 hours by oral route for 10 days. 10/18 completed Not Available Not Available Not Available azithromyci n 500 mg tablet Take 1 tablet every day by oral route for 3 days. 03/18 completed Not Available Not Available Not Available Prempro 0.45 mg-1.5 mg tablet Take 1 tablet every day by oral route. 10/07 completed Not Available Not Available Not Available bupropion HCl XL 300 mg 24 hr tablet, extended release 05/08 completed Not Available Not Available Not Available topiramate 50 mg tablet TAKE 1 TABLET BY MOUTH ONCE DAILY active Not Available Not Available No t Available OneTouch UltraMini kit active Not Available Not Available Not Available Vyvanse 30 mg capsule TAKE 1 CAPSULE BY MOUTH ONCE DAILY IN THE MORNING active Not Available Not Available No t Available armodafinil 50 mg tablet 05/26 completed Not Available Not Available Not Available armodafinil 150 mg tablet 10/18 completed Not Available Not Available Not Available armodafinil 250 mg tablet TAKE 1 TABLET BY MOUTH ONCE DAILY IN THE MORNING active Not Available Not Available No t Available OneTouch Delkenny Lancets 33 gauge active Not Available Not Available Not Available Latuda 40 mg tablet 10/18 completed Not Available Not Available Not Available Viibryd 20 mg tablet 10/18 completed Not Available Not Available Not Available Latuda 20 mg tablet 05/26 completed Not Available Not Available Not Available Breo Ellipta 100 mcg-25 mcg/dose powder for inhalation INHALE 1 PUFF BY MOUTH ONCE DAILY AT THE SAME TIME EACH DAY active Not Available Not Available No t Available Fetzima 40 mg capsule,ext ended release 05/26 completed Not Available Not Available Not Available Fetzima 80 mg capsule,ext ended release 05/26 completed Not Available Not Available Not Available Viibryd 10 mg (7)-20 mg (23) tablets in a dose pack 10/18 completed Not Available Not Available Not Available Vraylar 1.5 mg capsule TAKE 1 CAPSULE BY MOUTH ONCE DAILY active Not Available Not Available No t Available Vraylar 3 mg capsule TAKE 1 CAPSULE BY MOUTH ONCE DAILY active Not Available Not Available No t Available Vitals Date Recorded Body height Body mass index (BMI) Body weight Systolic blood pressure Diastolic blood pressure Provider Name and Address Organization Details Last Updated DateTime 05/01/2019 165.1 cm 29.7 kg/m2 50160.63 g 138 mm[Hg] 80 mm[Hg] Neeru Nguyen MA [facility] 0 10:27:24 Date Recorded Body height Body mass index (BMI) Body weight Oxygen saturation Oxygen saturation in Arterial blood by Pulse oximetry Heart rate Body temperature Systolic blood pressure Diastolic blood pressure Provider Name and Address Organization Details Last Updated DateTime 0 165.1 cm 29.8 kg/m2 40517.0 3 g 95 % 95 % 70 /min 98.2 [degF] 108 mm[Hg] 68 mm[Hg] Bere Dominguez MA [facility] 0 10:19:23 Date Recorded Body height Body temperature Oxygen saturation Oxygen saturation in Arterial blood by Pulse oximetry Heart rate Body mass index (BMI) Body weight Systolic blood pressure Diastolic blood pressure Provider Name and Address Organization Details Last Updated DateTime 1 165.1 cm 96.6 [degF] 97 % 97 % 91 /min 29.6 kg/m2 13812.4 4 g 106 mm[Hg] 70 mm[Hg] Raysa Noe MA [facility] 1 15:30:25 Social History Question Answer Notes LastModified by Bookeenizat ion Details LastModified Time Tobacco Smoking Status Former Smoker Mony Hoffmann MA null, [facility] 10/19/2019 15:54:29 What Is Your Level Of Alcohol Consumption? None Information not available 10/19/2019 What Is Your Level Of Caffeine Consumption? Moderate Information not available 10/19/2019 How Much Tobacco Do You Chew? None Information not available 10/19/2019 Are You Currently Employed? Yes Information not available 10/19/2019 What Type Of Diet Are You Following? DIABETIC Information not available 10/19/2019 Which Illicit Or Recreational Drugs Have You Used? None Information not available 10/19/2019 Do You Or Have You Ever Used E-cigarettes Or Vape? 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 With Others Information not available 10/19/2019 What Was The Date Of Your Most Recent Tobacco Screening? 03/18/2020 Information not available 03/18/2020 Do You Or Have You Ever Used Smokeless Tobacco? Never Used Smokeless Tobacco Information not available 10/19/2019 General Stress Level High Information not available 03/18/2020 On What Date Was Tobacco Cessation Counseling Provided? 03/18/2020 Information not available 03/18/2020 Sex: Unknown Functional Status Question Answer Note LastModified by Organization D etails LastModified Time Are you able to care for yourself? Yes Information n ot available 10/19/2019 Mental Status None recorded. Family History Relationship Description Onset Age of this Age Resolved Age Notes LastModified by Organization Details LastModified Time Mother Disorder of thyroid gland [email or web address] Not available 11:05:50 Father Cerebrovascu lar accident [email or web address] Not available 08/18/2015 11:05:50 Medical History Condition Response Diabetes Y Gynecological History Statement/Question Response Abnormal Pap Y Date of Last Mammogram 07/20/2019 Sexually Active? Y HPV Vaccine N Date of Last Pap Smear 06/19/2019 Sexual Problems? Y Current Control Method Menopause Most Recent Mammogram 07/26/2014 LMP Unknown Desired Control Method None Obstetrics History GPAL:G 3 P 3 0 0 0 Type Value Full Term 3 Total 3 Past Encounters Encounter ID Performer Location Encounter Start Date Encounter Closed Date Diagnosis/Indication Diagnosis SNOMED-CT Code Diagnosis ICD10 Code Diagnosis Note [id number] GRANT Connor ([facility] [address] [place] [address] 08/18/2015 10:35:18 08/18/2015 11:18:34 Pain in pelvis 40776798 R10.2 Gynecologi c examination 26684243 Z01.933 [id number] LUDY Hinton ([facility] [address]) [address] [facility] [place] [address] 08/03/2016 10:35:06 08/16/2016 08:30:55 Menopausal syndrome 299942698 N95.9 [id number] LUDY Hinton [facility] [address] [place] [address] 05/08/2017 15:47:40 05/10/2017 12:24:36 Menopausal syndrome 847703891 N95.9 [id number] Colleen Singh PA-C [facility] [address] [place] [address] 06/21/2017 09:44:29 06/21/2017 10:39:36 Dysuria 97025003 R30.0 Increased frequency of urination 632093793 R35.0 Diabetes mellitus 384005 09 E11.9 Eczema 49472583 L20.89 [id number] Colleen Singh PA-C [facility] [address] [place] [address] 03/25/2018 11:11:03 03/25/2018 13:15:17 Diabetes mellitus 00266729 E11.9 Chronic le ft maxillary sinusitis 2524367552 8286097 J32.0 [id number] Dayan Amaro [facility] [address] [place] [address] 05/13/2018 11:42:33 05/13/2018 12:51:52 [id number] [facility] [address] [facility] [address] [place] [address] 09/03/2018 11:05:51 09/04/2018 08:37:20 Menopausal syndrome 064780365 N95.9 1. Discussed hormonal options and otc herbal options for menopausal management . Discussed risk factors and side effects associated with both options including increase risk of cancer, heart attack and stroke, blood clots. 2. Pt would like to continue use of hrt. 5. Pt to call and schedule for annual or sooner if needed. [id number] [facility] [address] [facility] [address] [place] [address] 05/01/2019 10:04:17 05/04/2019 10:56:00 Gynecologic examination 27548581 Z01.419 1. Counseled regarding prevention of STD's , condom use 2. Pap done and mammogram order given 3. Advised avoidance of tobacco, alcohol, and drugs . 4. Counseled regarding folic acid supplement ation, calcium needs and prevention of osteoporos is . 5. BSE reviewed and recommende d. 6. Follow up in one year or sooner if needed. Screening mammography 24 351208 Z12.31 Importance of yearly mammograms and sbe exam discussed with pt. Mammogram order given, pt verbalized understand ing. Female str ess incontinence 46864760 N39.3 Pt educated on causes and s/s of incontinen ce including but not limited to pt weight, pushing/pu lling/lift ing, vaginal deliveries and hysterecto my. Pt to follow up with urology at pt's request for referral. Testostero ne level below reference range 815482004 R79.89 Will obtain hrt tests that pt had done with pcp and refer to endo for further evaluation . [id number] CINDI Duncan [facility] [address] [place] [address] 05/27/2019 10:03:45 05/27/2019 11:39:37 Type 2 diabetes mellitus 37174950 E11.9 Acute bron chitis with bronchospasm 91434236 J20.9 [id number] Colleen Singh PA-C [facility] [address] [place] [address] 10/19/2019 10:06:20 10/19/2019 16:30:22 Moderate persistent asthma 974832823 J45.42 [id number] JALYN LOPEZ [address] [place] [address] 10/20/2019 15:19:36 10/21/2019 08:36:21 Suspected COVID-19 288391037 Z03.952 [id number] Colleen Singh PA-C [facility] [address] [place] [address] 03/18/2020 15:23:38 03/21/2020 08:53:53 Acute otitis externa of left ear 8684715621 133636 H60.512 Dyspnea on exertion 6084 5006 R06.09 Health Concerns Section Related Observation LastModified by Organization Detai ls LastModified Time None Recorded Concern Status LastModified by Organization Details LastModified Time None Recorded Advance Directives Directive None Recorded Payers Encounter Date Sequence Insurance Name Policy Number Policy Farooq Covered Member ID Farooq Member ID Guarantor Name 05/01/2019 1 [facility] [employer] CLAIMS ([facility]) PLAN Trinh Dickson [id number] Justine Dickson 05/27/2019 1 [employer] CLAIM[employer] ([facility] [employer]) PLAN A Justine Dickson [id number] Justine Dickson 10/19/2019 1 [employer] ([facility] [employer]) PLAN A Justine Dickson [id number] Justine Dickson 10/20/2019 1 [employer] ([facility] [employer]) PLAN A Justine Dickson [id number] Justine Dickson 03/18/2020 1 [employer] CLAIM[employer] ([facility] Picket) PLAN A Justine Dickson [id number] Justine Dickson Notes Date Note Type Note Provider Name and Address Organization Details Recorded Time 05/01/2019 text/html Annual GYNReport ed bypatient.History:no gynecologic complaints Menstrual cycle:no menses in over 2 years Urinary symptoms:No hematuria;Incontinence Vulva:No genital lesion Vagina:Normal vaginal discharge Breast:No breast pain; No breast lump; No nipple discharge Sexual complaints:No sexual complaints; No pain during intercourse; Normal libido Menopausal Symptoms:No menopausal symptoms; Normal vaginal lubrication Psychological symptoms:No depression; No anxiety; No PMDD Preventive measures:Encourage self breast examination; Encourage regular exercise; Encourage no tobacco use; Encourage regular mammograms starting age 40; Followed with Q3 year pap smear and high risk HPV typing; Needs to schedule mammogram - states she now sees [facility] in [place] for pcp. states that pcp did hormonal labs on her and they were off . pt will fax copy of labs to this provider- pt states she is doing well with hrt, only occasional hot flashes- last pap 08/18/15 normal- needs mammogram order- would like referral for urology, states she urinates all of the time and has no bladder control PITER Hinton-SHELIA Attn: Accounting[address] [place], [address], [facility] 05/01/2019 10:54:47 05/27/2019 text/html Wheezing, SOB, d ry cough, muscle weakness, clogged ears, headaches on bilateral tempels, fatigue..using albuterol once/day..symptoms for 3 days. no fever. history of getting PNA each year. had left over jack lou that she took and help. wheezing at rest. SOB with mild activity. Says symptoms aren't terrible right now but it's getting worse and she doesn't want repeats of years past. taking tylenol once every day. won't try ibuprofen r/t COVID. denies sneezing, nasal drainage, ear pain, chest pain, chills. diabetes..BG at home around 180s..follows with nursing director for hormone replacements. seasonal allergies. Colleen Singh PA-C Attn: [address] [place], [address], [facility] 05/27/2019 10:53:04 10/19/2019 text/html wheezin season....needs meds...tested at work...no covid. Colleen Singh PA-C Attn: [address] [place], [address], [facility] 10/19/2019 16:01:59 10/20/2019 text/html COVID ScreeningReported bypatient.Onset/Durati on of fever:no fever Associated Symptoms:shortness of breath; no cough ComorbiditiesDiabetesC OVID-19 Symptoms June 2019Reported bypatient.COVID-19 Signs and Symptomscough resolved; fever resolved; shortness of breath same; chills resolved; repeated shaking with chills resolved; muscle pain resolved; headache resolved; sore throat resolved; loss of taste or smell resolved; vomiting or diarrhea resolved; fatigue resolved; anorexia resolved Associated Symptoms:no sputum production; no wheezing; no runny nose; no vomiting; no diarrhea; no body aches; no nausea; no change in mental status; no hypotension; no tachycardia pt has a hx of diabetes and asthma and complained of sob yesterday STEFANIE DOWNING NP Attn: [address]ing[address] [place], [address], [facility] 10/20/2019 16:11:57 03/18/2020 text/html For the last wee k the patient has been having left ear pain that has been getting worse. She cleaned it out with peroxide then took a Q-tip to clean it out and there was a bit of blood so she has left it alone. When she was little had lots of ear infections, but has not had one for years. Nothing has made her pain better and she has not taken anything for the pain. The patient states she is already hard of hearing, but it now sounds like far away worse than her baseline.She also mentions that she has been coughing, wheezing, and fatigued recently. About a month ago she had abx, which resolves her problems, but they have returned. She states she can no longer walk out to her car and back without becoming SOB and need to sit down. The patient has been using her inhalers as need. She has a history of asthma since she was a young girl. Productive cough of white sputum. The patient also reports stress headaches due to having to go to work and cant breath.She reports that every since she has covid she has never fully recovered. She had covid at the end of december. The patient was not admitted. Reports a bad episode of covid. Her symptoms were headache and mouth sores. Still occasionally has mouth sores.States her vision is becoming blurry and needs to go to the eye doctor as she has DM and thinks it is getting worse.No sinus congestion, sore throat, and myalgias. Colleen Singh PA-C Attn: [address] [place], [address], [facility] 03/18/2020 16:20:24 OBGyn Episode No OBEpisode recorded.
--- OUTSIDE RECORDS SUMMARY | 2024-05-26 17:07 | XMS_ITS | Clinical Summary ---
Author Organization [facility] Address [address] [place] [address] Care Team Providers Care Field Sales Representative Name Role Phone Justine Mei Primary Care Provider [phone] Allergies Active Allergy Reactions Criticality Noted Date Comments Penicillins Unknown 11/12/2017 Medications busPIRone 10 MG tablet Take 1 tablet by mouth 2 (two) times daily. Active cyclobenzaprine 10 MG tablet Take 1 tablet by mouth 3 (three) times daily. Active cyproheptadine 4 MG tablet Take 1 tablet by mouth 3 (three) times daily as needed. Active Estradiol [address] vaginally daily. Active fluoxetine 20 MG capsule Take 3 capsules by mouth daily. Active Gabapentin, Once-Daily, 300 MG Tab Take 1 tablet by mouth 2 (two) times daily. Active meloxicam 7.5 MG tablet Take 1 tablet by mouth daily. Active metFORMIN 500 MG tablet Take 1 tablet by mouth 2 (two) times daily. Active Active Problems Problem Noted Date Diagnosed Date Anxiety with depression 12/04/2017 Cognitive dysfunction 12/04/2017 Poor short term memory 12/04/2017 Family History Medical History Relation Comments Depression Father Hypertension Mother Relation Status Comments Father Mother Social History Tobacco Use Types Packs/Day Years Used Date Smoking Tobacco: Never Smokeless Tobacco: Never Comments Unknown Sex and Gender Information Value Date Recorded Sex Assigned at Not on file Legal Sex Female 8:55 PM CDT Gender Identity Not on file Sexual Orientation Not on file Last Filed Vital Signs Vital Sign Reading Time Taken Comments Blood Pressure 140/66 02/13/2018 2:35 PM [employer]BUT[employer] CENTER MANAGER Pulse 93 02/13/2018 2:35 PM DISTRIBUT[employer] C[employer] MANAGER Temperature - - Respiratory Rate - - Oxygen Saturation - - Inhaled Oxygen Concentration - - Weight 83.5 kg (184 lb) 12/04/2017 12:33 PM CDT Height 165.1 cm (5' 5 ) 12/04/2017 12:33 PM CDT Body Mass Index 30.62 12/04/2017 12:33 PM CDT Plan of Treatment Health Maintenance Due Date Last Done Comments Cervical Cancer Screening Pa p Smear (Age 30 to 64) Every 3 Years 1963 Colorectal Cancer Screening Colonoscopy (10 Years) 1963 Annual Physical 11/23/1966 Hepatitis C 11/23/1981 DTaP, Tdap and Td Vaccines ( 1 - Tdap) 11/23/1982 Cervical Cancer Screening Pa p with HPV Testing (Age 30 to 64) Every 5 Years 11/23/1993 Cervical Cancer Screening with HPV 11/23/1993 Mammogram Screening 2003 Zoster Vaccines (1 of 2) 11/23/2013 COVID-19 Vaccine (2023-2 5 season) 2023 RSV Immunization or 60+ Years (1 - 1-dose 75+ series) 11/23/2038 Meningococcal B Vaccine Aged Out No l onger eligible based on patient's age to complete this topic Meningococcal Vaccine Aged Out No luis romulo eligible based on patient's age to complete this topic Pneumococcal Vaccine: Pediat rics (0 to 5 Years) and At-Risk Patients (6 to 64 Years) Aged Out No longer eligible b ased on patient's age to complete this topic RSV Immunizations Under 20 Months Aged Out No longer eligible based on patient's age to complete this topic Insurance [employer] Care Teams Field Sales Representative Relationship Specialty Start Date End Date Justine Mei PA [address] [place] [address] PCP - General 02/13/18
--- OUTSIDE RECORDS SUMMARY | 2024-05-26 17:07 | XMS_ITS | Encounter Summary ---
Author Organization [facility] Address [address] [place] [address] Care Team Providers Care Biological Photographer Name Role Phone None, Provider Primary Care Provider Unavaila ble Justine Mei Primary Care Provider Encounter Details Date Type Department Care Team (Late st Contact Info) Description 01/25/2018 Abstract [facility] Neuroscience [facility] [address] [place] [phone] Sagar Reed MD [address] [place] [id number] Social History Tobacco Use Types Packs/Day Years [...] on filedocumented in this encounter Care Teams Biological Photographer Relationship Specialty Start Date End Date None, Provider, PCP - General 12/17/17 02/12/18 Justine Mei PA [address] [place] [address] PCP - General 02/13/18 documented as of this encounter
[2024-05-26 17:13] LABS: Thyroid Stimulating Hormone Reflex 1.62 u/IU/mL (0.36-3.74)
[2024-05-28 01:48] LABS: Vitamin D 25 Hydroxy 23 ng/mL (30-100)
== END 2024-05-26 16:26 | disposition home or self-care (01) ==
LOC: CHSLAB 16:27
PROVIDERS: PCP Physician Assistant; Visit Provider Physician Assistant
DX: J45.40 Moderate persistent asthma, uncomplicated (principal)
CPT/HCPCS: 36415; 80053; 80061; 82306; 83036; 84443; 85025

== ENCOUNTER 2024-05-30 17:57 | Outpatient (CLI) | payer OTHER, SELFPAY ==
--- NOTE | ~2024-05-30 | XR_ITS ---
Clinical Indication: Shortness of breath PA and lateral views of the chest: Comparison: 06/11/2021 Findings: The lungs are clear, without evidence of focal consolidation or pleural effusion. Cardiome diastinal silhouette is within normal limits. Stable calcified left hilar lymph nodes. Bones and soft tissues are unremarkable. Impression: Clear lungs. No acute abnormality. Reviewed, dictated and finalized at location . Impression: Clear lungs. No acute abnormality.
--- OUTSIDE RECORDS SUMMARY | 2024-05-30 18:02 | XMS_ITS | Data Portability ---
Author Organization [facility] LORNAHelga Address [address] [place] [address] Care Team Providers Care Excellence Coach Name Role Phone CLAUDIA COLVIN Linux Network Engineer COLLEEN SINGH Primary Care Provider [phone] Assessment No assessment recorded. Plan of Treatment Reminders Order Date Submit Date Provider Last Modified By Organization Details Last Modified Time Details Appointments None record ed. Lab SARS CoV 2 RNA (COVID -19), QL, lidar scientist-PC R, respir atory specim - cresco @ no 10/20 020 [facility] (Lab), [address] [place], [address], 0 09:55:30 CMP, serum or plasma 2019 020 VANESSA [facility], [address] [facility] [address], [address], 0 13:07:51 CBC 2019 020 VANESSA [facility], [address] [facility] 2, [place], [address], 0 13:07:52 TSH, serum or plasma 2019 020 VANESSA [facility], [address] [facility], [facility], [place], [address], 0 13:07:53 lipid panel, serum 2019 020 VANESSA [facility], [address] [facility], [facility] 2, [place], [address], 0 13:07:53 HbA1c (hemog lobin A1c), blood 2019 020 VANESSA In-Office Order, Internal Use Only DO Not Attach Compendium DO Not Attach Compendium, Do Not Delete/merge, [id number] 0 11:20:12 pap, IG + HPV 2019 020 [id number] [facility], [address] [facility], [facility] 2, [place], [address], 1 03:32:30 Referral urogyn ecolog ist referr al 2019 020 VANESSA Not available 0 13:38:40 endocr inolog y referr al 2019 020 [facility] Barker, 2 [facility] [address], [place], [address], 0 08:43:26 Procedures None record ed. Surgeries None record ed. Imaging XR, chest, 2 view 2020 021 VANESSA Alvarez (Radiology), 1 [facility] [place], [address], 1 14:26:59 exerci se stress test 2020 021 VANESSA Alvarez (Radiology), [address] [facility] [place], [address], 1 14:06:17 MAMMO, screen ing, digita l, bilate ral 2019 020 deldredsmitsuzan Alvarez (Radiology), [address] [facility] [place], [address], 0 11:25:54 Medication Orders ciprof loxaci n 0.3 % eye drops 2020 021 INTERFACE [facility], [address] [place] [address], [address], 1 16:16:33 Advair Diskus 250 mcg-50 mcg/do se powder for inhala tion 2020 021 INTERFACE [facility], [address] [place] [address], [address], 1 16:16:23 albute rol sulfat e HFA 90 mcg/ac tuatio n aeroso l inhale r 2019 020 INTERFACE [facility] [address] [place], [address], 0 16:01:42 amoxic illin 875 mg tablet 2019 INTERFACE [facility] [place], [address], 0 16:01:51 ceftri axone 1 gram soluti on for inject ion 2019 dturnerma Not available 0 15:52:44 Patient TargetsNo targets recorded. Patient Instructions Encounter Date Encounter Id Patient Instructions Last Modified By Organization Details Last Modified Time 05/01/2019 [id number] mammogram: about this test rosy Not available 05/01/2019 11:25:54 bladder training: care instructions deldredsmith Not available 05/01/2019 10:54:24 kegel exercises: care instructions deldredsmith Not available 05/01/2019 10:54:24 Stress Incontinence: Care Instructions deldredsmith Not available 05/01/2019 10:54:24 05/27/2019 [id number] learning about type 2 diabetes jnanney Not available 05/27/2019 10:51:28 type 2 diabetes: care instructions jnanney Not available 05/27/2019 10:51:28 10/20/2019 [id number] Reviewed the following recommendations: -Stay home and [...] Female stress incontinence Referring Physician: Claudia Colvin, Soap Inspector, Encounter Date: 05/01/2019 Endocrinology Referral for T estosterone level below reference range Referring Physician: Claudia Colvin, Soap Inspector, Encounter Date: 05/01/2019 Results Created Date Observation Date Name Description Value Unit Range Abnormal Flag Note LastModifiedBy Organization Detail LastModifiedTime 05/01/1905/05/2019 pap, IG + HPV diagnosis: Jesus ARCOS FOR INTRA EPITH ELIJARET [place] OR RUBEN LOPES . Not Available [facility] ([facility]) [address] [facility], [place], [address], 05/05/2019 11:08:59 05/01/1905/05/2019 pap, IG + HPV specimen adequacy: Jesus haq Satis facto ry for evalu ation . Endoc ervic al and/o r squam ous metap lasti c cells (endo cervi arin compo nent) are prese nt. Not Available [facility] ([facility]) [address] [facility], [place], [address], 05/05/2019 11:08:59 05/01/19 20 05/05/2019 pap, IG + HPV clinician provided ICD10: Jesus haq Z01.4 19 Not Available [facility] ([facility]) [address] [facility], [place], [address], 05/05/2019 11:08:59 05/01/19 20 05/05/2019 pap, IG + HPV performed by: Commen t Shelli M Panfilo , Cytot echno logis t (ASCP ) Not Available [facility] ([facility]) [address] [facility], [place], [address], 05/05/2019 11:08:59 05/01/19 20 05/05/2019 pap, IG + HPV . . Not Available [facility] ([facility]) [address] [facility], [place], [address], 05/05/2019 11:08:59 05/01/19 20 05/05/2019 pap, IG [...] ts do occur . Not Available [facility] ([facility]) [address] [facility], [place], [address], 05/05/2019 11:08:59 05/01/19 20 05/05/2019 pap, IG + HPV test methodology: Commen t This liqui d based ThinP rep(R ) pap test was scree stoney with the use of an image guide alejandra lacy. Not Available [facility] ([facility]) [address] [facility], [place], [address], 05/05/2019 11:08:59 05/01/19 20 05/05/2019 pap, IG + HPV HPV aptima Negati ve negati ve This nucle ic acid ampli ficat ion test detec ts fourt een high- risk HPV types (16,1 8,31, 33,35 ,39,4 5,51, 52,56 ,58,5 9,66, 68) witho ut diffe renti ation . Not Available [facility] ([facility]) [address] [facility], [place], [address], 05/05/2019 11:08:59 05/27/19 20 05/28/2019 CMP, serum or plasm a glucose 136 mg/dL 65-99 above high normal Not Available [facility] ([facility]) [address] [place], [address], 05/29/2019 13:07:51 05/27/19 20 05/28/2019 CMP, serum or plasm a BUN 10 mg/dL 6-24 Not Available [facility] ([facility]) [address] [place], [address], 05/29/2019 13:07:51 05/27/19 20 05/28/2019 CMP, serum or plasm a creatinine 0.71 mg/dL 0.57-1 .00 Not Available [facility] ([facility]) [address] [place], [address], 05/29/2019 13:07:51 05/27/19 20 05/28/2019 CMP, serum or plasm a eGFR if nonafricn AM 96 mL/mi n/1.7 3 >59 Not Available [facility] ([facility]) [address] [place], [address], 05/29/2019 13:07:51 05/27/19 20 05/28/2019 CMP, serum or plasm a eGFR if africn AM 111 mL/mi n/1.7 3 >59 Not Available [facility] ([facility]) [address] [place], [address], 05/29/2019 13:07:51 05/27/19 20 05/28/2019 CMP, serum or plasm a BUN/creatini ne ratio 14 9-23 Not Available [facility] ([facility]) [address] [place], [address], 05/29/2019 13:07:51 05/27/19 20 05/28/2019 CMP, serum or plasm a sodium 143 mmol/ L 134-14 4 Not Available [facility] ([facility]) [address] [place], [address], 05/29/2019 13:07:51 05/27/19 20 05/28/2019 CMP, serum or plasm a potassium 4.6 mmol/ L 3.5-5. 2 Not Available [facility] ([facility]) [address] [facility] [place], [address], 05/29/2019 13:07:51 05/27/19 20 05/28/2019 CMP, serum or plasm a chloride 103 mmol/ L 96-106 Not Available [facility] ([facility]) [address] [place], [address], 05/29/2019 13:07:51 05/27/1905/28/2019 CMP, serum or plasm a carbon dioxide, total 25 mmol/ L 20-29 Not Available [facility] ([facility]) [address] [place], [address], 05/29/2019 13:07:51 05/27/19 20 05/28/2019 CMP, serum or plasm a calcium 9.4 mg/dL 8.7-10 .2 Not Available [facility] ([facility]) [address] [place], [address], 05/29/2019 13:07:51 05/27/19 20 05/28/2019 CMP, serum or plasm a protein, total 6.9 g/dL 6.0-8. 5 Not Available [facility] ([facility]) [address] [place], [address], 05/29/2019 13:07:51 05/27/19 20 05/28/2019 CMP, serum or plasm a albumin 4.1 g/dL 3.8-4. 9 Not Available [facility] ([facility]) [address] [place], [address], 05/29/2019 13:07:51 05/27/19 20 05/28/2019 CMP, serum or plasm a globulin, total 2.8 g/dL 1.5-4. 5 Not Available [facility] ([facility]) [address] [facility] [place], [address], 05/29/2019 13:07:51 05/27/19 20 05/28/2019 CMP, serum or plasm a A/G ratio 1.5 1.2-2. 2 Not Available [facility] ([facility]) [address] [facility] [place], [address], 05/29/2019 13:07:51 05/27/19 20 05/28/2019 CMP, serum or plasm a bilirubin, total <0.2 mg/dL 0.0-1. 2 Not Available [facility] ([facility]) [address] [facility], [place], [address], 05/29/2019 13:07:51 05/27/19 20 05/28/2019 CMP, serum or plasm a alkaline phosphatase 108 IU/L 39-117 Not Available [facility] ([facility]) [address] [facility] [place], [address], 05/29/2019 13:07:51 05/27/19 20 05/28/2019 CMP, serum or plasm a AST (SGOT) 14 IU/L 0-40 Not Available [facility] ([facility]) [address] [facility] [place], [address], 05/29/2019 13:07:51 05/27/19 20 05/28/2019 CMP, serum or plasm a ALT (SGPT) 14 IU/L 0-32 Not Available [facility] ([facility]) [address] [facility] [place], [address], 05/29/2019 13:07:51 05/27/19 20 05/28/2019 CBC WBC 4.6 x10e3 /uL 3.4-10 .8 Not Available [facility] ([facility]) [address] [facility] [place], [address], 05/29/2019 13:07:52 05/27/1905/28/2019 CBC RBC 4.32 x10e6 /uL 3.77-5 .28 Not Available [facility] ([facility]) [address] [facility], [place], [address], 05/29/2019 13:07:52 05/27/19 20 05/28/2019 CBC hemoglobin 13.3 g/dL 11.1-1 5.9 Not Available [facility] ([facility]) [address] [facility], [place], [address], 05/29/2019 13:07:52 05/27/1905/28/2019 CBC hematocrit 39.7 % 34.0-4 6.6 Not Available [facility] ([facility]) [address] [facility], [place], [address], 05/29/2019 13:07:52 05/27/1905/28/2019 CBC MCV 92 fL 79-97 Not Available [facility] ([facility]) [address] [facility], [place], [address], 05/29/2019 13:07:52 05/27/1905/28/2019 CBC MCH 30.8 pg 26.6-3 3.0 Not Available [facility] ([facility]) [address] [facility], [place], [address], 05/29/2019 13:07:52 05/27/1905/28/2019 CBC MCHC 33.5 g/dL 31.5-3 5.7 Not Available [facility] ([facility]) [address] [place], [address], 05/29/2019 13:07:52 05/27/1905/28/2019 CBC RDW 13.0 % 11.7-1 5.4 Not Available [facility] ([facility]) [address] [place], [address], 05/29/2019 13:07:52 05/27/1905/28/2019 CBC platelets 372 x10e3 /uL 150-45 0 Not Available [facility] ([facility]) [address] [facility], [place], [address], 05/29/2019 13:07:52 05/27/19 20 05/28/2019 CBC NRBC DYE HOUSE HAND Not Available [facility] ([facility]) [address] [facility], [place], [address], 05/29/2019 13:07:52 05/27/19 20 05/28/2019 lipid panel , serum cholesterol, total 179 mg/dL 100-19 9 Not Available [facility] ([facility]) [address] [facility], [place], [address], 05/29/2019 13:07:53 05/27/19 20 05/28/2019 lipid panel , serum triglyceride s 94 mg/dL 0-149 Not Available [facility] ([facility]) [address] [facility], [place], [address], 05/29/2019 13:07:53 05/27/19 20 05/28/2019 lipid panel , serum HDL cholesterol 71 mg/dL >39 Not Available [facility] ([facility]) [address] [facility], [place], [address], 05/29/2019 13:07:53 05/27/19 20 05/28/2019 lipid panel , serum VLDL cholesterol arin 19 mg/dL 5-40 Not Available [facility] ([facility]) [address] [facility], [place], [address], 05/29/2019 13:07:53 05/27/19 20 05/28/2019 lipid panel , serum LDL cholesterol calc 89 mg/dL 0-99 Not Available [facility] ([facility]) [address] [place], [address], 05/29/2019 13:07:53 05/27/19 20 05/28/2019 lipid panel , serum comment: DYE HOUSE HAND Not Available [facility] ([facility]) [address] [facility], [place], [address], 05/29/2019 13:07:53 05/27/1905/29/2019 TSH, serum or plasm a TSH-icma 1.6 uu/mL Refer ence Range : Non-P regna nt Adult 0.450 -4.50 0 Pregn kimberly First Trime ster 0.100 -4.00 0 Secon d Trime ster 0.200 -4.00 0 Third Trime ster 0.300 -4.50 0 Not Available [facility] [address] [facility], [place], [address], 05/29/2019 13:07:53 05/27/19 20 05/28/2019 cardi ovasc ular asses sment panel , serum interpretati on Note Suppl ement al repor t is avail able. Not Available [facility] ([facility]) [address] [facility], [place], [address], 05/29/2019 13:07:54 05/27/19 20 05/28/2019 cardi ovasc ular asses sment panel , serum pdf image . Not Available [facility] ([facility]) [address] [facility], [place], [address], 05/29/2019 13:07:54 05/27/19 20 05/27/2019 HbA1c (hemo globi n A1c), blood HbA1c 6.6 Not Available In-Office Order Internal Use Only DO Not Attach Compendium DO Not Attach Compendium, Do Not Delete/merge, [id number] 05/27/2019 10:49:17 05/30/1906/14/2019 fecal occul t blood , immun oassa y, stool occult blood, fecal, ia Negati ve negati ve Not Available [facility] ([facility]) [address] [facility], [place], [address], 06/15/2019 15:07:48 05/30/19 20 06/12/2019 one speci [...] of colle ction . Not Available [facility] ([facility]) [address] [facility], [place], [address], 06/15/2019 15:07:49 10/21/19 20 10/21/2019 SARS CoV 2 RNA (COVI D-19) , QL, lidar scientist-P CR, respi rator y speci men sars - cov - 2 PCR NEGATI VE mL Not Available [facility] (Lab) [address] [place], [address], 10/23/2019 09:55:30 10/21/19 20 10/21/2019 SARS CoV 2 RNA (COVI D-19) , QL, lidar scientist-P CR, respi rator y speci men covidcom1 [...] of this test metho d. Not Available [facility] (Lab) [address] [facility], [place], [address], 10/23/2019 09:55:30 10/21/1910/21/2019 SARS CoV 2 RNA (COVI D-19) , QL, lidar scientist-P CR, respi rator y speci men covidcom2 Posit junito resul ts are indic ative of the prese nce of SARS- CoV-2 RNA and do not rule out bacte rial infec tion or co-in fecti on with other virus es. Not Available [facility] (Lab) [address], [place], [address], 10/23/2019 09:55:30 10/21/19 20 10/21/2019 SARS CoV 2 RNA (COVI D-19) , QL, lidar scientist-P CR, respi rator y speci men covidcom3 Test resul ts shoul d be used along with other clini arin obser vatio ns, patie nt histo ry, epide miolo gical infor matio n and labor atory data in makin g the diagn osis. Not Available [facility] (Lab) [address], [place], [address], 10/23/2019 09:55:30 10/21/19 20 10/21/2019 SARS CoV 2 RNA (COVI D-19) , QL, lidar scientist-P CR, respi rator y speci men covidcom4 [...] or revok ed soone r. Not Available [facility] (Lab) [address], [place], [address], 10/23/2019 09:55:30 10/21/19 20 10/21/2019 SARS CoV 2 RNA (COVI D-19) , QL, lidar scientist-P CR, respi rator y speci men covidcom5 Gibran keith Labor atory is certi fied under CLIA- 88 as quali fied to perfo rm high compl exity testi ng. This testi ng was perfo rmed in the [facility] [place] [address] (CLIA Licen se #[id number], CAP #[id number], AU-ID #[id number]). Not Available [facility] (Lab) [address] [place], [address], 10/23/2019 09:55:30 10/21/19 20 10/21/2019 SARS CoV 2 RNA (COVI D-19) , QL, lidar scientist-P CR, respi rator y speci men covidcom6 Facts heet for healt hcare provi ders: https ://[employer] .gov/ media /0090 56/do wnloa d Facts heet for patie nts: https ://[employer] .gov/ media /1362 57/do wnloa d Not Available [facility] (Lab) [address] [place], [address], 10/23/2019 09:55:30 04/21/19 21 04/20/2020 exerc ise stres s test No observ ation record ed. [address] [place], [address], 05/05/2020 16:44:44 04/21/19 21 04/20/2020 XR, chest , 2 view No observ ation record ed. [address] [place], [address], 04/22/2020 17:00:56 Result Notes None recorded. Problems Name Problem SNOMED Code Status Onset Date Resolution Date Notes Provider Name and Address Organization Details Recorded Time Pain in pelvis 24973651 Active Not Available [facility] 01/13/2020 15:46:24 Problem Notes None recorded. Procedures Surgical History Date Name Laterality Status Provider Name and Address Organization Details Recorded Time 0 Date of Last Mammogram completed Raysa Noe [place] - [facility] 03/18/2020 15:28:20 0 Date of Last Pap Smear completed Raysa Noe MA [place] - [facility] 03/18/2020 15:28:14 5 Most Recent Mammogram completed Neeru Nguyen [place] - [facility] 08/18/2015 10:43:32 Tubal Ligation completed Neeru Nguyen [place] - [facility] 08/18/2015 10:43:32 Imaging Results Imaging Date Name Status LastModified by Organiz ation Details LastModified Time 04/20/2020 exercise stress test completed [address] [place], [address], 05/05/2020 16:44:44 04/20/2020 XR, chest, 2 view completed [address] [place], [address], 04/22/2020 17:00:56 Procedure Notes None recorded. Medical [...] propionate 50 mcg/actuati on nasal spray,suspe nsion [place] 1 spray every day by intranasa l [...] Updated DateTime 05/01/2019 165.1 cm 29.7 kg/m2 69124.63 g 138 mm[Hg] 80 mm[Hg] Neeru Nguyen MA [facility] 0 10:27:24 Date Recorded Body height Body mass index (BMI) Body weight Oxygen saturation Oxygen saturation in Arterial blood by Pulse oximetry Heart rate Body temperature Systolic blood pressure Diastolic blood pressure Provider Name and Address Organization Details Last Updated DateTime 0 165.1 cm 29.8 kg/m2 05341.0 3 g 95 % 95 % 70 /min 98.2 [degF] 108 mm[Hg] 68 mm[Hg] Bere Dominguez MA [facility] 0 10:19:23 Date Recorded Body height Body temperature Oxygen saturation Oxygen saturation in Arterial blood by Pulse oximetry Heart rate Body mass index (BMI) Body weight Systolic blood pressure Diastolic blood pressure Provider Name and Address Organization Details Last Updated DateTime 1 165.1 cm 96.6 [degF] 97 % 97 % 91 /min 29.6 kg/m2 64467.4 4 g 106 mm[Hg] 70 mm[Hg] Raysa Noe MA [facility] 1 15:30:25 Social History Question Answer Notes LastModified by [employer]ySenseizat ion Details LastModified Time Tobacco Smoking Status Former Smoker Mony Hoffmann MA null, [facility] 10/19/2019 15:54:29 What Is Your Level Of [...] SNOMED-CT Code Diagnosis ICD10 Code Diagnosis Note [id number] GRANT Connor ([facility] 122) [address] [place] [address] 08/18/2015 10:35:18 08/18/2015 11:18:34 Pain in pelvis 77158160 R10.2 Gynecologi c examination 19927179 Z01.363 [id number] LUDY Hinton ([facility] 122) [address] [facility] [place] [address] 08/03/2016 10:35:06 08/16/2016 08:30:55 Menopausal syndrome [address]182493 N95.[id number] [facility] [address] [place] [address] 05/08/2017 15:47:40 05/10/2017 12:24:36 Menopausal syndrome 318474502 N95.9 [id number]leen Singh PA-C [facility] [address] [place] [address] 06/21/2017 09:44:29 06/21/2017 10:39:36 Dysuria 47089688 R30.0 Increased frequency of urination 021995069 R35.0 Diabetes mellitus 342448 09 E11.9 Eczema 25085566 L20.89 [id number] Colleen Singh PA-C [facility] [address] [place] [address] 03/25/2018 11:11:03 03/25/2018 13:15:17 Diabetes mellitus 60335823 E11.9 Chronic le ft maxillary sinusitis 2289781433 4278102 J32.0 [id number] Dayan Amaro [facility] [address] [place] [address] 05/13/2018 11:42:33 05/13/2018 12:51:52 [id number] [facility] [address] [facility] [address] [place] [address] 09/03/2018 11:05:51 09/04/2018 08:37:20 Menopausal syndrome 175809570 N95.9 1. Discussed hormonal options and otc herbal options for menopausal management . Discussed risk factors and side effects associated with both options including increase risk of cancer, heart attack and stroke, blood clots. 2. Pt would like to continue use of hrt. 5. Pt to call and schedule for annual or sooner if needed. [id number] [facility] OB [address] [facility] [address] [place] [address] 05/01/2019 10:04:17 05/04/2019 10:56:00 Gynecologic examination 05815624 Z01.419 1. Counseled regarding prevention of STD's , condom use 2. Pap done and mammogram order given 3. Advised avoidance of tobacco, alcohol, and drugs . 4. Counseled regarding folic acid supplement ation, calcium needs and prevention of osteoporos is . 5. BSE reviewed and recommende d. 6. Follow up in one year or sooner if needed. Screening mammography 24 986936 Z12.31 Importance of yearly mammograms and sbe exam discussed with pt. Mammogram order given, pt verbalized understand ing. Female str ess incontinence 74724596 N39.3 Pt educated on causes and s/s of incontinen ce including but not limited to pt weight, pushing/pu lling/lift ing, vaginal deliveries and hysterecto my. Pt to follow up with urology at pt's request for referral. Testostero ne level below reference range 237211738 R79.89 Will obtain hrt tests that pt had done with pcp and refer to endo for further evaluation . [id number] CINDI Duncan [facility] [address] [place] [address] 05/27/2019 10:03:45 05/27/2019 11:39:37 Type 2 diabetes mellitus 31641201 E11.9 Acute bron chitis with bronchospasm 91588944 J20.9 [id number] Colleen Singh PA-C [facility] [address] [place] [address] 10/19/2019 10:06:20 10/19/2019 16:30:22 Moderate persistent asthma 388338724 J45.42 [id number] JALYN LOPEZ [address] [place] [address] 10/20/2019 15:19:36 10/21/2019 08:36:21 Suspected COVID-19 435498293 Z03.106 [id number] Colleen Singh PA-C [facility] [address] [place] [address] 03/18/2020 15:23:38 03/21/2020 08:53:53 Acute otitis externa of left ear 8759482224 150697 H60.512 Dyspnea on exertion 6084 5006 R06.09 Health Concerns Section Related Observation LastModified by Organization Detai ls LastModified Time None Recorded Concern Status LastModified by Organization Details LastModified Time None Recorded Advance Directives Directive None Recorded Payers Encounter Date Sequence Insurance Name Policy Number Policy Farooq Covered Member ID Farooq Member ID Guarantor Name 05/01/2019 1 [facility] [employer] CLAIMS ([facility]) PLAN Trinh Dickson [id number] Justine Dickson 05/27/2019 1 [employer] CLAIM[employer] ([facility] [employer]) PLAN A Justine Dickson [id number] Justine Dickson 10/19/2019 1 [employer] CLAIM[employer] ([facility] [employer]) PLAN A Justine Dickson [id number] Justine Dickson 10/20/2019 1 [employer] - [employer] - RAILRO[employer] CLAIMS ([facility] [employer]) PLAN A Justine Dickson [id number] Justine Dickson 03/18/2020 1 [employer] - [employer]IL[employer] CLAIMS ([facility] [employer]) PLAN A Justine Dickson [id number] Justine Dickson Notes Date Note Type [...] schedule mammogram - states she now sees [facility] in [place] for pcp. states that pcp did hormonal [...] bladder control PITER Hinton-SHELIA Attn: Accounting,[address] [place], [address], [facility] 05/01/2019 10:54:47 05/27/2019 text/html Wheezing, [...] chills. diabetes..BG at home around 180s..follows with founder and president for hormone replacements. seasonal allergies. Colleen Singh PA-C Attn: Accounting[address] [place], [address], [facility] 05/27/2019 10:53:04 10/19/2019 text/html wheezin season....needs meds...tested at work...no covid. Colleen Singh PA-C Attn: Accounting,[address] [place], [address], [facility] 10/19/2019 16:01:59 10/20/2019 text/html COVID ScreeningReported [...] and asthma and complained of sob yesterday STEAFNIE DOWNING NP Attn: Accounting,[address] [place], [address], [facility] 10/20/2019 16:11:57 03/18/2020 text/html For the [...] myalgias. Colleen Singh PA-C Attn: Accounting[address] [place], [address], [facility] 03/18/2020 16:20:24 OBGyn Episode No OBEpisode recorded.
--- OUTSIDE RECORDS SUMMARY | 2024-05-30 18:02 | XMS_ITS | Encounter Summary ---
Author Organization [facility] Address [address] [place] [address] Care Team Providers Care Manager Epic Name Role Phone None, Provider Primary Care Provider Unavaila ble Justine Mei Primary Care Provider Encounter Details Date Type Department Care Team (Latest Contact Info) Description 10/24/2017 Abstract [facility] , Generic Conversion, Social [...] on filedocumented in this encounter Care Teams Manager Epic Relationship Specialty Start Date End Date None, Provider, PCP - General 12/17/17 02/12/18 Justine Mei PA [address] [place] [address] PCP - General 02/13/18 documented as of this encounter
--- OUTSIDE RECORDS SUMMARY | 2024-05-30 18:02 | XMS_ITS | Clinical Summary ---
Author Organization [facility] Address [address] [facility] [place] [address] Phone Care Team Providers Care Call Person Name Role Phone Claudia Gonzalez APRN, WINE CELLAR STOCK CLERK Unavailable [phone] Allergies No known active allergies Medications armodafinil (NUVIGIL) 150 MG Tablet armodafinil 150 mg tablet Active ergocalciferol (VITAMIN D) 46275 UNIT Capsule TAKE 1 CAPSULE BY MOUTH [...] Most Recently Relevant to Health Maintenance Insurance [employer] Care Teams Call Person Relationship Specialty Start Date End Date Claudia Gonzalez APRN, CNP [address] [place] [address] [place] [address] Graphic Arts Technician Family Medicine 05/05/19
--- OUTSIDE RECORDS SUMMARY | 2024-05-30 18:02 | XMS_ITS | Continuity of Care Document ---
Author Organization [facility] Address [address] [place] [address] [place] [address] Phone Care Team Providers Care Theatrical Agent Name Role Phone Joseph Torres MD Unavailable [...] Diagnoses Date Provider Providers Copied on Encounter [facility], [id number] [place] [address] [address], [place], [place], [id number], [place] tel:[phone] SEC Javed PRATHER Professional Diabetic eye exam (chief complaint) Type 2 diabetes mellitus without complications Combined forms of age-related cataract, bilateral 2 [address] Joseph. [address] [facility], [facility] [place] [facility], [place], [place], [id number], . tel:[phone] Referring Provider: Rosie Mahmood OD, [facility] [address] [place] [address], [address]. tel:[phone] [facility], [address], [place], [place], [id number], tel:[phone] SEC Se[place] Professional No Information 2 Brian Ruiz. [address] [facility], [facility] [place] [facility], [place], [place], [id number], [place]. tel:[phone] Referring Provider: Rosie Mahmood OD, [address], [address]. tel:[phone] Family History Family Member Type Diagnosis Age At Onset Problem Family history of Diabetes bambi marquez Payers Payer name Insurance type Covered democrat ID Cristóbal richey(s) [employer] SOI CI [id number] Social History Type Description Quantity Date Captured [...] known the doctors name she located at [facility] in [place]. Reason For Referral Reason For Referral No [...] known the doctors name she located at [facility] in [place]. Functional Status Date Functional Assessmen t No Information Instructions Date Instruction Additional Infor mation Impression/Plan Assessments Type Assessment Date assessment Type 2 diabetes mellitus without complications assessment Combined forms of age-related ca taract, bilateral Patient Care Teams Name Effective Dates (start - stop) Status Members No Information
--- OUTSIDE RECORDS SUMMARY | 2024-05-30 18:02 | XMS_ITS | Clinical Summary ---
Author Organization [facility] Address [address] [place] [address] Care Team Providers Care Transfer Pumper Name Role Phone Justine Mei Primary Care Provider [phone] Allergies Active Allergy Reactions Criticality Noted Date [...] Comments Blood Pressure 140/66 02/13/2018 2:35 PM TECHNICAL RECRUITER Pulse 93 02/13/2018 2:35 PM TECHNICAL RECRUITER Temperature - - Respiratory Rate - - [...] patient's age to complete this topic Insurance [employer] Care Teams Transfer Pumper Relationship Specialty Start Date End Date Justine Mei PA [address] [place] [address] PCP - General 02/13/18
--- OUTSIDE RECORDS SUMMARY | 2024-05-30 18:02 | XMS_ITS | Encounter Summary ---
Author Organization [facility] Address [address] [place] [address] Care Team Providers Care E D Tech Name Role Phone None, Provider Primary Care Provider Unavaila ble Justine Mei Primary Care Provider [phone] Encounter Details Date Type Department Care Team (Late st Contact Info) Description 01/25/2018 Abstract [facility] [address] [place] [phone] Sagar Reed MD [address] [place] [address] Social History Tobacco Use Types Packs/Day Years [...] on filedocumented in this encounter Care Teams E D Tech Relationship Specialty Start Date End Date None, Provider, PCP - General 12/17/17 02/12/18 Justine Mei PA [address] [place] [address] PCP - General 02/13/18 documented as of this encounter
== END 2024-05-30 17:58 | disposition home or self-care (01) ==
LOC: CHSIMG 18:00
PROVIDERS: PCP Physician Assistant; Visit Provider Physician Assistant
DX: R06.02 Shortness of breath (principal)
CPT/HCPCS: 71046

== ENCOUNTER 2024-08-19 12:06 | Emergency (ER) | payer OTHER, SELFPAY ==
--- NOTE | ~2024-08-19 | XR_ITS ---
HISTORY: knee pain COMPARISON: None TECHNIQUE: 3 views of the left knee were performed FINDINGS: No acute or subacute fracture. Medial and lateral tibiofemoral joint space narrowing is identified. Large suprapatellar joint effusion is identified. The infrapatellar joint space is clear. Lateral femoral notch sign is identified suggesting an ACL tear for which MRI examination is recommen ded IMPRESSION: Lateral femoral notch sign with a large suprapatellar joint effusion for for which MRI e xamination is recommended as these suggest an ACL tear. Reviewed, dictated and finalized at location A. IMPRESSION: Lateral femoral notch sign with a large suprapatellar joint effusi on for for which MRI examination is recommended as these suggest an ACL tear.
[2024-08-19 12:06] VITALS: BP 137/66; PULSE 86; RESP 18; TEMP 36.2; O2SAT 97
--- NOTE | 2024-08-19 12:08 | ED_ITS ---
HPI - Extremity Injury (Lower) General Chief Complaint: Extremity Injury, Lower Stated Complaint: Knee pain Time Seen by Provider: 08/19/24 12:08 Source: patient and EMS Mode of arrival: EMS Limitations: no limitations History of Present Illness HPI Narrative: 58-year-old female with a history of hypertension diabetes mellitus twisted left knee while walking on 07/25/2024. Subsequently she developed severe left knee pain with decreased range of motion. She presented to [facility] where she had an x-ray and a venous Doppler to rule out DVT. No acute findings were noted. The patient was advised to follow-up with ortho specialist. Today the patient developed -- severe left knee pain -- unable to bear weight she called EMS and presented to the hospital. No other complaints. complaint: knee injury Onset (ago): day(s) ( Five days ago) Injury: Left: knee Type of Injury: other ( twisted left knee) Place: work Severity: severe Relieving factors: immobilization Exacerbating factors: weight bearing and movement Context: walking Other symptoms: none Treatments prior to arrival: cold therapy Related Data Home Medications ?Medication ?Instructions ?Recorded ?Confirmed ?Last Taken ?Type metformin 500 mg tablet 500 mg PO BID 05/11/20 01/25/24 Unknown History armodafinil 250 mg tablet 250 mg PO DAILY 10/18/21 01/25/24 Unknown History atorvastatin 20 mg tablet 20 mg PO DAILY 01/25/24 01/25/24 Unknown History fluticasone furoate 100 1 inh inhalation DAILY 01/25/24 01/25/24 Unknown History mcg-vilanterol 25 mcg/dose inhalation powder Allergies Allergy/AdvReac Type Severity Reaction Status Date / Time No Known Allergies Allergy Verified 08/19/24 12:11 Review of Systems Review of Systems: All systems reviewed & are unremarkable except as noted in HPI and below PMFSH Past Medical History Medical History Diabetes mellitus Bronchitis Asthma with acute exacerbation Surgical History Surgical History History of tubal ligation History of adenoidectomy History of tonsillectomy Family History Family History Mother Family history non-contributory Social History Social History Smoking status: Never smoker Alcohol intake: never Substance use: never 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 Gender identity (if verbalized by the patient): Female Spiritual care concerns: No Exam Narrative: vitals stable Const: General: no acute distress Nutritional Appearance: well nourished Orientation/consciousness: patient oriented x3 Limitations: no limitations HENMT: Head: normal to inspection Ears: external ears normal Face/Nose/Sinus: Normal external nose present Face and sinus: normal facial exam Mouth: Yes Normal oral and palatal mucosa present Throat: posterior oropharynx normal Eyes: Conjunctivae: conjunctivae normal Pupils: Equal, round and reactive pupils present EOM: EOMs intact bilaterally Direct Ophthalmoscopy: no photophobia Neck: Neck: normal visual inspection, no lymphadenopathy and no meningeal signs Chest: Chest palpation & inspection: normal inspection of the chest Resp: Effort & Inspection: normal respiratory effort Auscultation: clear to auscultation bilaterally Cardio: Rate: regular rate Rhythm: regular rhythm GI: GI Palp: Yes Soft to palpation Auscultation: normal bowel sounds Other: no tenderness/ rigidity /rebound. : General: Yes no CVA tenderness Back/Spine/Pelvis: Back: no CVA tenderness Skin: General skin exam: normal color Rashes: no rashes Wounds: no wounds Neuro: General: patient oriented x3, moves all extremities, no meningeal signs, no focal motor deficits and CN's II-XI intact bilaterally Cranial nerves: Yes Nystagmus not present Speech: normal speech Extrem: General: normal to inspection Other: Left knee-- tenderness over the back of the knee. Decreased range of motion. Negative stress test. Psych: Mental Status: mental status grossly normal Affect: normal affect Attitude: cooperative Course Course Emergency Course: Left knee sprain-- x-ray revealed lateral femoral not sign suggestive of ACL tear Vital Signs Vital signs: Vital Signs Temperature 36.2 C L 08/19/24 12:06 Pulse Rate 86 08/19/24 12:06 Respiratory Rate 18 08/19/24 12:06 Blood Pressure 137/66 08/19/24 12:06 Pulse Oximetry 97 08/19/24 12:06 Oxygen Delivery Room Air 08/19/24 12:06 Temperature 36.2 C L 08/19/24 12:06 Pulse Rate 78 08/19/24 13:10 Respiratory Rate 16 08/19/24 13:10 Blood Pressure 145/75 H 08/19/24 13:10 Pulse Oximetry 100 08/19/24 13:10 Oxygen Delivery Room Air 08/19/24 13:10 MDM - Extremity Injury (Lower) MDM Narrative Medical decision making narrative: left femoral sprain/rule out ACL tear Differential Diagnosis Differential diagnosis: Likely acute internal derangement of knee Medical Records Attestation: I reviewed the patient's medical records. Discharge Plan Discharge Clinical Impression: Left knee sprain Qualifiers: Encounter type: initial encounter Involved ligament of knee: anterior cruciate ligament Qualified Code(s): S83.512A - Sprain of anterior cruciate ligament of left knee, initial encounter Patient Disposition: Home Condition: Stable Instructions: Antibiotic Form, ACL Injury (ED), Knee Immobilizer (ED) Patient Language: Faroese Prescriptions: New (DME) crutches See Rx Instructions .Route .MEDSUPPLY Qty: 1 0RF Rx Instructions: As directed No Action albuterol sulfate 90 mcg/actuation HFA aerosol inhaler 2 puff inhalation Q4H PRN (Reason: shortness of breath or wheezing) Qty: 8.5 0RF atorvastatin 20 mg tablet 20 mg PO DAILY fluticasone furoate-vilanterol 100-25 mcg/dose blister with device 1 inh INHALATION DAILY prednisone 50 mg tablet 50 mg PO DAILY Qty: 5 0RF amoxicillin-pot clavulanate 875-125 mg tablet 1 tablet PO Q12H Qty: 20 0RF permethrin 5 % cream 1 applic topical Q14D Qty: 60 0RF Rx Instructions: apply second treatment 14 days after first treatment if live lice remain metformin 500 mg tablet 500 mg PO BID armodafinil 250 mg tablet 250 mg PO DAILY Follow-up/Referrals: UNKNOWN,DOCTOR [Non-Staff] - Time of Disposition: 13:28
--- OUTSIDE RECORDS SUMMARY | 2024-08-19 12:09 | XMS_ITS | Clinical Summary ---
Author Organization [facility] Address [address] [place] [address] Care Team Providers Care Principal Librarian Name Role Phone Justine Mei Primary Care Provider [phone] Allergies Active Allergy Reactions Criticality Noted Date [...] Comments Blood Pressure 140/66 02/13/2018 2:35 PM BILLING AND QUALITY TECHNICIAN Pulse 93 02/13/2018 2:35 PM BILLING AND QUALITY TECHNICIAN Temperature - - Respiratory Rate - - Oxygen Saturation - - Inhaled Oxygen Concentration - - Weight 83.5 kg (184 lb) 12/04/2017 12:33 PM CDT Height 165.1 cm (5' 5) 12/04/2017 12:33 PM CDT Body Mass Index [...] Screening with HPV 11/23/1993 Mammogram Screening 2003 Pneumococcal Vaccine: 50+ Ye ars (1 of 1 - PCV) 11/23/2013 Zoster Vaccines (1 of 2) 11/23/2013 COVID-19 Vaccine ( - 2023-2 5 season) 2023 RSV Immunization or 60+ [...] patient's age to complete this topic Insurance [employer] Care Teams Principal Librarian Relationship Specialty Start Date End Date Justine Mei PA [address] [place] [id number] PCP - General 02/13/18
--- OUTSIDE RECORDS SUMMARY | 2024-08-19 12:09 | XMS_ITS | Encounter Summary ---
Author Organization [facility] Address [address] [place] [address] Care Team Providers Care Preparer Samples And Repairs Name Role Phone None, Provider Primary Care Provider Unavaila ble Justine Mei Primary Care Provider [phone] Encounter Details Date Type Department Care Team (Latest Contact Info) Description 10/24/2017 Abstract [facility] , Generic Conversion, Social History [...] on filedocumented in this encounter Care Teams Preparer Samples And Repairs Relationship Specialty Start Date End Date None, Provider, PCP - General 12/17/17 02/12/18 Justine Mei PA [address] [place] [address] PCP - General 02/13/18 documented as of this encounter
--- OUTSIDE RECORDS SUMMARY | 2024-08-19 12:09 | XMS_ITS | Referral Summary ---
Author Organization [facility] Address [address] [place] [address] Care Team Providers Care Start Up Specialist Name Role Phone No, Physician Primary Care Provider [phone] Encounters Date Type Department Care Team Description 08/17/2024 7:07 AM CDT - 08/17/2024 8:33 AM CDT Emergency [facility] Emergency Department [address] [place] [address] Fidel Drake MD Left leg pain (Primary Dx) Discharge Disposition: Discharge to home or self care 08/16/2024 2:37 PM CDT - 08/16/2024 4:53 PM CDT Emergency [facility] Emergency Department [address] [place] [address] Acute pain of left lower extremity (Primary Dx); Arthralgia of left knee; Elevated d-dimer Discharge Disposition: Discharge to home or self care from Last 3 Months Allergies No known active allergies Medications azithromycin (Zithromax Z-Mat) 250 mg tablet Take 1 tablet (250 mg total) by mouth daily Take first 2 tablets together, then 1 every day until finished. 6 tablet 12/24/2019 Active Active Problems Problem Noted Date Diagnosed Date Acute pain of left lower extremity 08/16/2024 Arthralgia of left knee 08/16/2024 Elevated d-dimer 08/16/2024 Social History Tobacco Use Types Packs/Day Years Used Date Smoking Tobacco: Never Smokeless Tobacco: Never Alcohol Use Standard Drinks/Week Comments Not Currently 0 (1 standard drink = 0.6 oz pur e alcohol) Personal Safety Answer Date Recorded Have you ever been in or are you currently in a harmful physical or emotional relationship or is someone making you feel afraid or unsafe? Denies 08/17/2024 Comments No Sex and Gender Information Value Date Recorded Sex Assigned at Not on file Legal Sex Female 2:17 PM [employer] Gender Identity Not on file Sexual Orientation Not on file Last Filed Vital Signs Vital Sign Reading Time Taken Comments Blood Pressure 143/64 08/17/2024 7:06 AM CDT Pulse 100 08/17/2024 7:06 AM CDT Temperature 36.4 C (97.5 F) 08/17/2024 7:06 AM CDT Respiratory Rate 16 08/17/2024 7:06 AM CDT Oxygen Saturation 98% 08/17/2024 7:06 AM CDT Inhaled Oxygen Concentration - - Weight 94.8 kg (209 lb) 08/17/2024 7:06 AM CDT Height 165.1 cm (5' 5) 08/17/2024 7:06 AM CDT Body Mass Index 34.78 08/17/2024 7:06 AM CDT Plan of Treatment Not on file Procedures Procedure Name Priority Date/Time Associated Diagnosis Comments US VEIN DUPLEX LOWER EXTREMITY LEFT LIMITED ED 08/17/2024 7:54 AM CDT EGFR STAT 08/16/2024 4:26 PM CDT COMPREHENSIVE METABOLIC PANEL STAT 08/16/2024 4:26 PM CDT DIFFERENTIAL AUTO STAT 08/16/2024 3:4 2 PM CDT CBC WITH AUTO DIFFERENTIAL STAT 08/16/2024 3:42 PM CDT APTT STAT 08/16/2024 3:42 PM CDT PROTIME-INR STAT 08/16/2024 3:42 PM CDT D-DIMER, QUANTITATIVE STAT 08/16/2024 3:42 PM CDT XR KNEE LEFT 3 VIEWS ED 08/16/2024 3:31 PM CDT COLONOSCOPY IMAGES 12/23/2015 from Last 3 Months or Most Recently Relevant to Health Maintenance Results * US VEIN DUPLEX LOWER EXTREMITY LEFT LIMITED, UNILATERAL (08/17/2024 7:54 AM CDT) Anatomical Region Laterality Modality Vascular Left Ultrasound 08/17/2024 8:02 AM CDT Narrative 08/17/2024 8:03 AM CDT EXAM DESCRIPTION: US VEIN DUPLEX LOWER EXTREMITY LEFT LIMITED, UNILATERAL REASON FOR STUDY: Swelling, Lower Extremity, Left Duration: 2 days. TECHNIQUE: Duplex scan using the B-mode, spectral Doppler, and color-flow Doppler of the deep venous system of the left lower extremity was performed. Images stored on PACS. COMPARISON: None FINDINGS: The common femoral, common femoral-saphenous vein confluence, visualized profunda femoral, superficial femoral, and popliteal veins are readily compressible with no intraluminal thrombus on del cid scale images. There is normal color and spectral Doppler signal, including augmentation. Greater saphenous vein appears patent. Visualized posterior tibial vein is patent. The peroneal veins are not visualized on this study IMPRESSION: 1. No evidence of left lower extremity deep venous thrombosis. The peroneal veins are not visualized on this study THIS IS AN ELECTRONICALLY VERIFIED FINAL REPORT 08/17/2024 8:03 AM - Electronically signed by India Nevarez M.D. TW: TW Report ID: [id number] Reading Location: [id number] Procedure Note India Nevarez MD - 08/17/2024 EXAM DESCRIPTION: US VEIN DUPLEX LOWER EXTREMITY LEFT LIMITED,UNILATERAL REASON FOR STUDY: Swelling, Lower Extremity, Left Duration: 2 days. TECHNIQUE: Duplex scan using the B-mode, spectral Doppler, and color-flow Doppler of the deep venous system of the left lower extremity wasperformed. Images stored on PACS. COMPARISON: None FINDINGS: The common femoral, common femoral-saphenous vein confluence, visualized profunda femoral, superficial femoral, and popliteal veins are readily compressible with no intraluminal thrombus on del cid scale images. There is normal color and spectral Doppler signal, including augmentation. Greater saphenous vein appears patent. Visualized posterior tibial vein is patent. The peroneal veins are not visualized on this study IMPRESSION: 1. No evidence of left lower extremity deep venous thrombosis. Theperoneal veins are not visualized on this study THIS IS AN ELECTRONICALLY VERIFIED FINAL REPORT 08/17/2024 8:03 AM - Electronically signed by India Nevarez M.D. TW: TW Report ID: [id number] Reading Location: [id number] us Fidel Drake MD IMG US PROCEDURES F inal Result * eGFR (08/16/2024 4:26 PM CDT) eGFR >90 >=60 mL/min/1. 73 m2 Comment: Interpretive Data Reference Interval Normal >/= 90 mL/min/1.73m2 Mildly decreased* 60 - 89 mL/min/1.73m2 Mildly to moderately decreased 45 - 59 mL/min/1.73m2 Moderately to severely decreased 30 - 44 mL/min/1.73m2 Severely decreased 15 - 29 mL/min/1.73m2 Kidney Failure < 15 mL/min/1.73m2 *Relative to young adult level Estimated glomerular filtration rate is determined by the 2020 CKD-EPI equation recommended by the National Kidney Foundation (A Unifying Approach to GFR Estimation: Recommendations of the NKF-ASK Task Force on Reassessing the Inclusion of Race in Diagnosing Kidney Disease, JASN 2020). The CKD-EPI equation should not be used for patients with unstable renal function and has not been validated in children and those over 70. Current interpretive data was last reviewed 2020. Blood 08/16/2024 4:26 PM CDT 08/16/2024 4:28 PM CDT us Johnny [facility]LEY LAB BLOOD ORDERABLES Final R esult [facility] [place]) [address] [facility] Department of m[place]um0u [place], [place] [id number] * (ABNORMAL) Comprehensive metabolic panel (08/16/2024 4:26 PM CDT) Sodium 136 135 - 145 mmol/L Potassium, pl 3.8 3.3 - 4.9 mmol/L [facility] Chloride 96(L) 97 - 110 mmol/L [facility] CO2 29 22 - 32 mmol/L [facility] Anion gap 11 2 - 15 mmol/L [facility] BUN 5(L) 6 - 25 mg/dL [facility] Creatinine 0.60 0.60 - 1.10 mg/dL [facility] Glucose 94 70 - 199 mg/dL [facility] Comment: Interpretive Data Fasting glucose >/= 126 mg/dl is diagnostic for diabetes. Fasting is defined as no caloric intake for at least 8 hours. Fasting glucose between 100 mg/dl to 125 mg/dl is diagnostic of prediabetes. In a patient with classic symptoms of hyperglycemia or hyperglycemic crisis, a random glucose >/= 200 mg/dl is diagnostic for diabetes. In the absence of unequivocal hyperglycemia, results should be confirmed by repeat testing. The classification and Diagnosis of Diabetes Diabetes Care 2021; 46: S19-S40. Current interpretive data was last revised 2022. Calcium 9.1 8.5 - 10.3 mg/dL [facility] Bilirubin, total 0.3 0.1 - 1.2 mg/dL [facility] Protein, pl 6.8 6.5 - 8.5 g/dL [facility] Albumin 3.6 3.5 - 5.0 g/dL [facility] Alk phos 162(H) 40 - 130 Units/L [facility] ALT 15 7 - 45 Units/L [facility] AST 13 10 - 45 Units/L [facility] Blood 08/16/2024 4:26 PM CDT 08/16/2024 4:28 PM CDT us Johnny [facility] LAB BLOOD ORDERABLES Final R esult [facility] [address] [facility] Department [place] [address] * (ABNORMAL) Differential, auto (08/16/2024 3:42 PM CDT) Neutrophil abs 5.93 1.50 - 6.50 K/cumm Imm gran abs 0.04 0.00 - 0.10 K/cumm [facility] Lymphocyte abs 2.61 0.80 - 3.30 K/cumm [facility] Monocyte abs 0.99(H) 0.20 - 0.80 K/cumm [facility] Eosinophil abs 0.36 0.00 - 0.50 K/cumm [facility] Basophil abs 0.11(H) 0.00 - 0.10 K/cumm [facility] Neutrophil pct 59.0 % [facility] Comment: Interpretive Data Percent cell count reference ranges are not reported, since discordance with absolute values may lead to misinterpretation of CBC data. Current Interpretive Data was last revised on 2017. Imm gran pct 0.4 % [facility] Comment: Interpretive Data Percent cell count reference ranges are not reported, since discordance with absolute values may lead to misinterpretation of CBC data. Current Interpretive Data was last revised on 2017. Lymphocyte pct 26.0 % [facility] Comment: Interpretive Data Percent cell count reference ranges are not reported, since discordance with absolute values may lead to misinterpretation of CBC data. Current Interpretive Data was last revised on 2017. Monocyte pct 9.9 % [facility] Comment: Interpretive Data Percent cell count reference ranges are not reported, since discordance with absolute values may lead to misinterpretation of CBC data. Current Interpretive Data was last revised on 2017. Eosinophil pct 3.6 % [facility] Comment: Interpretive Data Percent cell count reference ranges are not reported, since discordance with absolute values may lead to misinterpretation of CBC data. Current Interpretive Data was last revised on 2017. Basophil pct 1.1 % [facility] Comment: Interpretive Data Percent cell count reference ranges are not reported, since discordance with absolute values may lead to misinterpretation of CBC data. Current Interpretive Data was last revised on 2017. Blood 08/16/2024 3:42 PM CDT 08/16/2024 3:46 PM CDT Johnny [facility] LAB BLOOD ORDERABLES Final R esult [facility] [address] [facility] Department [place] [address] * (ABNORMAL) CBC with auto differential (08/16/2024 3:42 PM CDT) WBC 10.04(H) 3.80 - 9.90 K/cumm Hgb 13.4 11.9 - 15.5 g/dL [facility] Hct 40.4 35.6 - 45.5 % [facility] Plt 291 150 - 400 K/cumm [facility] MPV 10.3 9.1 - 12.3 fL [facility] RBC 4.44 3.90 - 5.20 M/cumm [facility] MCV 91.0 81.3 - 96.4 fL [facility] MCH 30.2 27.1 - 33.3 pg [facility] MCHC 33.2 32.3 - 35.7 g/dL [facility] RDW CV 12.6 11.1 - 14.9 % [facility] RDW SD 41.3 35.7 - 48.1 fL [facility] NRBC abs 0.00 0.00 - 0.01 K/cumm [facility] Blood 08/16/2024 3:42 PM CDT 08/16/2024 3:46 PM CDT Johnny [facility] LAB BLOOD ORDERABLES Final R esult [facility] [address] [facility] [place] [address] * (ABNORMAL) aPTT (08/16/2024 3:42 PM CDT) aPTT 20(L) 28 - 38 sec [facility] Comment: Interpretive Data Heparin therapeutic range: 66.0 - 100.0 seconds. Range based on correlation with therapeutic heparin activity range of 0.3 - 0.7 Units/mL. Current interpretive data was last revised on 2022. Blood 08/16/2024 3:42 PM CDT 08/16/2024 3:46 PM CDT Johnny [facility] LAB BLOOD ORDERABLES Final R esult Performing Organization Address [facility] Co de Phone Number [facility] ([place]) [address] [place] [address] * Protime-INR (08/16/2024 3:42 PM CDT) PT 10.5 9.7 - 13.0 sec [facility] INR 0.97 0.90 - 1.20 [facility] Comment: Interpretive data Oral anticoagulant therapeutic ranges: Venous thromboembolism prophylaxis or treatment: 2.0-3.0 CARDIOLOGY Standard range: 2.0-3.0 High-intensity range: 2.5-3.5 Refer to indication-specific guidelines for appropriate target ranges for prosthetic heart valve replacement. Current interpretive data was last revised on 2019. Blood 08/16/2024 3:42 PM CDT 08/16/2024 3:46 PM CDT Johnny [facility] LAB BLOOD ORDERABLES Final R esult Performing Organization Address City/[facility]/ZIP Co de Phone Number [facility] ([place]) [address] [facility] [place] [address] * (ABNORMAL) D-dimer, quantitative (08/16/2024 3:42 PM CDT) D-Dimer 763(H) <=499 ng/mL FEU [facility] ([place]) Comment: Interpretive data FDA approved the D-dimer, in conjunction with a low or moderate pretest probability score, to exclude venous thromboembolic events (VTE) (PE and DVT) in outpatients when the D-dimer result is < 500 ng/ml FEU. Evidence supports using an age-adjusted D-dimer cut-off for outpatients older than 50 (age x 10) to improve specificity without sacrificing sensitivity. Example: age 68, VTE cut-off 680 ng/ml FEU. References; Schouten HT et al. Brit Med J. 2013;346:f2492. Tanner et al. Annals Int Med. 2015;163:701-11. Current interpretive data was last revised on 2019. Blood 08/16/2024 3:42 PM CDT 08/16/2024 3:46 PM CDT Johnny [facility] LAB BLOOD ORDERABLES Final R esult [facility] ([place]) [address] [facility] Department [place] [address] * XR Knee Left 3 Views (08/16/2024 3:31 PM CDT) Anatomical Region Laterality Modality Lower Extremities, Knee Left Computed Radiography 08/16/2024 4:00 PM CDT Narrative 08/16/2024 4:02 PM CDT EXAM DESCRIPTION: XR KNEE LEFT 3 VIEWS REASON FOR STUDY: Left knee pain Pt states she has left knee pain. Pt states it is hard to bend and stand. Pt states the other day she couldn't get it out of bed. Pt denies any injury. TECHNIQUE: 3 radiographic view(s) of the left knee. COMPARISON: None. FINDINGS: BONES/JOINTS: No acute displaced fracture or dislocation. Patellar enthesopathic changes. Trace suprapatellar effusion. SOFT TISSUES: Vascular calcifications. IMPRESSION: No acute osseous abnormality. THIS IS AN ELECTRONICALLY VERIFIED FINAL REPORT 08/16/2024 4:02 PM - Electronically signed by Geoffrey Hatch M.D. NS: NS Report ID: [id number] Reading Location: [id number] Procedure Note Geoffrey Hatch MD - 08/16/2024 EXAM DESCRIPTION: XR KNEE LEFT 3 VIEWS REASON FOR STUDY: Left knee pain Pt states she has left knee pain. Pt states it is hard to bend and stand.Pt states the other day she couldn't get it out of bed. Pt denies any injury. TECHNIQUE: 3 radiographic view(s) of the left knee. COMPARISON: None. FINDINGS: BONES/JOINTS: No acute displaced fracture or dislocation. Patellar enthesopathic changes. Trace suprapatellar effusion. SOFT TISSUES: Vascular calcifications. IMPRESSION: No acute osseous abnormality. THIS IS AN ELECTRONICALLY VERIFIED FINAL REPORT 08/16/2024 4:02 PM - Electronically signed by Geoffrey Hatch M.D. NS: NS Report ID: [id number] Reading Location: [id number] Johnny MOSLEY IMG XR PROCEDURES Final Resu lt * COLONOSCOPY IMAGES (12/23/2015) Anatomical Region Laterality Modality Other Narrative 12/23/2015 Ordered by an unspecified provider. Historical Provider GI PROCEDURE ORDERABLES F inal Result from Last 3 Months or Most Recently Relevant to Health Maintenance Insurance [employer] OPEN ACCESS [facility] CHOICE PLUS Care Teams Start Up Specialist Relationship Specialty Start Date End Date No, Physician PCP - General 08/16/24
--- OUTSIDE RECORDS SUMMARY | 2024-08-19 12:09 | XMS_ITS | Clinical Summary ---
Author Organization [facility] Address [address] [facility], [place] [address] Phone Care Team Providers Care Final Coat Sprayer Name Role Phone Claudia Gonzalez APRN, PRESS LOADER Unavailable [phone] Allergies No known active allergies Medications armodafinil (NUVIGIL) 150 MG Tablet armodafinil 150 mg tablet Active ergocalciferol (VITAMIN D) 34597 UNIT Capsule TAKE 1 CAPSULE BY MOUTH [...] 1:14 PM CDT Height 165.1 cm (5' 5) 07/02/2019 1:14 PM CDT Body Mass Index 30.29 07/02/2019 1:14 PM CDT Plan of Treatment Health Maintenance Due Date Last Done Comments Diabetes: Eye Exam 1965 Diabetes: Foot Exam 1965 Hepatitis C Virus (HCV) Screening 1965 TdaP Immunization 1965 Pneumococcal Immunization (5 0+ years) (1 of 2 - PCV) 11/23/1982 Cologuard 11/23/2008 Colonoscopy 11/23/2008 Colorectal Cancer Screening 11/23/2008 Immunochemical Fecal Occult Blood 11/23/2008 Zoster Immunization (1 of 2) 11/23/2013 Diabetes: Hemoglobin A1c 09/22/2019 03/24/2019 Diabetes: Nephropathy Screening 03/24/2020 0 SARS-COV-2 Immunization ( - 2023- season) 2023 Respiratory Syncytial Virus (RSV) Immunization (Adult) (1 - Risk 60-74 years 1-dose series) 2023 Influenza Immunization (Seas on Ended) 2024 Hepatitis B Immunization Aged Out No longer eligible based on patient's age to complete this topic Human Papillomavirus (HPV) Immunization Aged Out No longer eligible b ased [...] Most Recently Relevant to Health Maintenance Insurance [facility] [employer] Care Teams Final Coat Sprayer Relationship Specialty Start Date End Date Claudia Gonzalez APRN, CNP [address] [place] [address] [address] [place] [address] Outbound Sales Specialist Family Medicine 05/05/19
--- OUTSIDE RECORDS SUMMARY | 2024-08-19 12:09 | XMS_ITS | Clinical Summary ---
Author Organization [facility] Address [address] [place] [address] Care Team Providers Care Repair Armature Winder Helper Name Role Phone No, Physician Primary Care Provider [phone] Allergies No known active allergies Medications azithromycin (Zithromax Z-Mat) 250 mg tablet Take 1 tablet (250 mg total) by mouth daily Take first 2 tablets together, then 1 every day until finished. 6 tablet 12/24/2019 Active Active Problems Problem Noted Date Diagnosed Date Acute pain of left lower extremity 08/16/2024 Arthralgia of left knee 08/16/2024 Elevated d-dimer 08/16/2024 Encounters Date Type Department Care Team Description 08/17/2024 7:07 AM CDT - 08/17/2024 8:33 AM CDT Emergency [facility] Emergency Department [address] [place] [address] Fidel Drake MD Left leg pain (Primary Dx) Discharge Disposition: Discharge to home or self care 08/16/2024 2:37 PM CDT - 08/16/2024 4:53 PM CDT Emergency [facility] Emergency Department [address] [place] [address] Acute pain of left lower extremity (Primary Dx); Arthralgia of left knee; Elevated d-dimer Discharge Disposition: Discharge to home or self care from Last 3 Months Medical History Medical History Date Comments Scoliosis Diabetes mellitus (HCC) Asthma Social History Tobacco Use Types Packs/Day Years [...] on file 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 Gender Identity Not on file Sexual Orientation Not on file Obstetrics History Last Filed Vital Signs Vital Sign Reading [...] 08/17/2024 7:06 AM CDT Plan of Treatment Health Maintenance Due Date Last Done Comments Breast Cancer Screening-Mammogram 1965 Cervical Cancer Screening 1965 Depression Screening 1965 Hepatitis C Screening 1965 Hepatitis B Screening 11/23/1981 Regular Well Visit/Exam 18-64 11/23/1981 Zoster Vaccine (1 of 2) 11/23/2013 Covid-19 Vaccine ( season) 2023 11/23/2021, 09/22/2021, 09/01/2021 Influenza Vaccine (#1) 2024 Colon Cancer Screening-Colonoscopy 12/22/2025 12/23/2015, 12/23/2015 DTaP/Tdap/Td Vaccine (2 - Td or Tdap) 11/05/2032 11/05/2022 Colon Cancer Screening-CT Colonography Discontinued 12/23/2015, 12/23/2015 Colon Cancer Screening-DNA Stool Discontinued 12/23/2015, 12/23/2015 Colon Cancer Screening-FIT Discontinued 12/22, 12/23/2015 Colon Cancer Screening-Sigmoidoscopy Discontinued 12/23/2015, 12/23/2015 Pneumococcal vaccine <65 Aged Out No longer eligible based on [...] India Nevarez M.D. TW: TW Report ID: [id number] Reading Location: [id number] Procedure Note India Nevarez MD - 08/17/2024 [...] India Nevarez M.D. TW: TW Report ID: [id number] Reading Location: [id number] Fidel Drake MD [facility] US PROCEDURES F inal Result * eGFR [...] [facility] BLOOD ORDERABLES Final R esult [facility] (ISSUE) 1 [facility] Department [place] [address] * (ABNORMAL) Comprehensive metabolic panel (08/16/2024 4:26 PM CDT) Sodium 136 135 - 145 mmol/L Potassium, pl 3.8 3.3 - 4.9 mmol/L [facility] ([facility]) Chloride 96(L) 97 - 110 mmol/L [facility] ([facility]) CO2 29 22 - 32 mmol/L [facility] ([facility]) Anion gap 11 2 - 15 mmol/L [facility] ([facility]) BUN 5(L) 6 - 25 mg/dL [facility] ([facility]) Creatinine 0.60 0.60 - 1.10 mg/dL [facility] ([facility]) Glucose 94 70 - 199 mg/dL [facility] ([facility]) Comment: Interpretive Data Fasting glucose [...] [facility] BLOOD ORDERABLES Final R esult [facility] (ISSUE) 1 [facility] Department [place] [address] * (ABNORMAL) Differential, auto (08/16/2024 3:42 PM [...] Neutrophil pct 59.0 % [facility] ([facility]) Comment: Interpretive Data Percent cell count reference ranges are not reported, since discordance with absolute values may lead to misinterpretation of CBC data. Current Interpretive Data was last revised on 2017. Imm gran pct 0.4 % [facility] ([facility]) Comment: Interpretive Data Percent cell count reference ranges are not reported, since discordance with absolute values may lead to misinterpretation of CBC data. Current Interpretive Data was last revised on 2017. Lymphocyte pct 26.0 % [facility] ([facility]) Comment: Interpretive Data Percent cell count reference ranges are not reported, since discordance with absolute values may lead to misinterpretation of CBC data. Current Interpretive Data was last revised on 2017. Monocyte pct 9.9 % [facility] ([facility]) Comment: Interpretive Data Percent cell count reference ranges are not reported, since discordance with absolute values may lead to misinterpretation of CBC data. Current Interpretive Data was last revised on 2017. Eosinophil pct 3.6 % [facility] ([facility]) Comment: Interpretive Data Percent cell count reference ranges are not reported, since discordance with absolute values may lead to misinterpretation of CBC data. Current Interpretive Data was last revised on 2017. Basophil pct 1.1 % [facility] ([facility]) Comment: Interpretive Data Percent cell count reference ranges are not reported, since discordance with absolute values may lead to misinterpretation of CBC data. Current Interpretive Data was last revised on 2017. Blood 08/16/2024 3:42 PM CDT 08/16/2024 3:46 PM CDT us Johnny [facility] BLOOD ORDERABLES Final R esult [facility] ([facility]) 1 [facility] Department of Laboratories [place], [place] [id number] * (ABNORMAL) CBC with auto differential (08/16/2024 3:42 PM CDT) WBC 10.04(H) 3.80 - 9.90 K/cumm Hgb 13.4 11.9 - 15.5 g/dL [facility] ([facility]) Hct 40.4 35.6 - 45.5 % [facility] ([facility]) Plt 291 150 - 400 K/cumm [facility] ([facility]) MPV 10.3 9.1 - 12.3 fL [facility] ([facility]) RBC 4.44 3.90 - 5.20 M/cumm [facility] ([facility]) MCV 91.0 81.3 - 96.4 fL [facility] ([place]) MCH 30.2 27.1 - 33.3 pg [facility] ([facility]) MCHC 33.2 32.3 - 35.7 g/dL [facility] ([facility]) RDW CV 12.6 11.1 - 14.9 % [facility] ([facility]) RDW SD 41.3 35.7 - 48.1 fL [facility] ([facility]) NRBC abs 0.00 0.00 - 0.01 K/cumm [facility] ([facility]) Blood 08/16/2024 3:42 PM CDT 08/16/2024 3:46 PM CDT Johnny [facility] BLOOD ORDERABLES Final R esult Performing Organization Address City/[facility]/ZIP Co de Phone Number [facility] (ISSUE) 1 [facility] [place] [address] * (ABNORMAL) aPTT (08/16/2024 3:42 PM CDT) aPTT 20(L) 28 - 38 sec [facility] ([facility]) Comment: Interpretive Data Heparin therapeutic range: 66.0 - 100.0 seconds. Range based on correlation with therapeutic heparin activity range of 0.3 - 0.7 Units/mL. Current interpretive data was last revised on 2022. Blood 08/16/2024 3:42 PM CDT 08/16/2024 3:46 PM CDT Johnny [facility] BLOOD ORDERABLES Final R esult [facility] (ISSUE) 1 [facility] [place] [address] * Protime-INR (08/16/2024 3:42 PM CDT) PT 10.5 9.7 - 13.0 sec [facility] (ISSUE) INR 0.97 0.90 - 1.20 [facility] (ISSUE) Comment: Interpretive data Oral anticoagulant therapeutic ranges: Venous thromboembolism prophylaxis or treatment: 2.0-3.0 CARDIOLOGY Standard range: 2.0-3.0 High-intensity range: 2.5-3.5 Refer to indication-specific guidelines for appropriate target ranges for prosthetic heart valve replacement. Current interpretive data was last revised on 2019. Blood 08/16/2024 3:42 PM CDT 08/16/2024 3:46 PM CDT Johnny [facility] BLOOD ORDERABLES Final R esult [facility] (ISSUE) 1 [facility] Department [place] [address] * (ABNORMAL) D-dimer, quantitative (08/16/2024 3:42 PM CDT) D-Dimer 763(H) <=499 ng/mL [facility] (ISSUE) Comment: Interpretive data FDA approved the D-dimer, [...] 3:42 PM CDT 08/16/2024 3:46 PM CDT us Johnny [facility] BLOOD ORDERABLES Final R esult [facility] ISSUE 1 [facility] Department [place] [address] * XR Knee Left 3 Views (08/16/2024 [...] Geoffrey Hatch M.D. NS: NS Report ID: [id number] Reading Location: [id number] Procedure Note Geoffrey Hatch MD - 08/16/2024 [...] Geoffrey Hatch M.D. NS: NS Report ID: [id number] Reading Location: [id number] Johnny [facility] IM[facility] XR PROCEDURES Final Resu lt * COLONOSCOPY IMAGES (12/23/2015) Anatomical Region Laterality Modality Other Narrative 12/23/2015 Ordered by an unspecified provider. Historical Provider GI PROCEDURE ORDERABLES F inal Result from Last 3 Months or Most Recently Relevant to Health Maintenance Insurance Portr OPEN ACCESS [facility] CHOICE PLUS Care Teams Repair Armature Winder Helper Relationship Specialty Start Date End Date No, Physician PCP - General 08/16/24
--- OUTSIDE RECORDS SUMMARY | 2024-08-19 12:09 | XMS_ITS | Encounter Summary ---
Author Organization [facility] Address [address] [place] [address] Care Team Providers Care Card Painter Name Role Phone None, Provider Primary Care Provider Unavaila ble Justine Mei Primary Care Provider [phone] Encounter Details Date Type Department Care Team (Late st Contact Info) Description 01/25/2018 Abstract [facility] Neuroscience [facility] [address] [place] [phone] Sagar Reed MD [address] [place] [id number] Social History Tobacco Use Types Packs/Day Years [...] on filedocumented in this encounter Care Teams Card Painter Relationship Specialty Start Date End Date None, Provider, PCP - General 12/17/17 02/12/18 Justine Mei PA [address] [place] [address] PCP - General 02/13/18 documented as of this encounter
--- OUTSIDE RECORDS SUMMARY | 2024-08-19 12:41 | XMS_ITS | Clinical Summary ---
Author Organization [facility] Address [address] [facility] [place] [address] Phone Care Team Providers Care Engineering Documentation Specialist Name Role Phone Claudia Gonzalez APRN, CHRISTIAN SCIENCE PRACTITIONER Unavailable [phone] Allergies No known active allergies Medications armodafinil (NUVIGIL) 150 MG Tablet armodafinil 150 mg tablet Active ergocalciferol (VITAMIN D) 80473 UNIT Capsule TAKE 1 CAPSULE BY MOUTH [...] Most Recently Relevant to Health Maintenance Insurance [employer] Care Teams Engineering Documentation Specialist Relationship Specialty Start Date End Date Claudia Gonzalez APRN, CNP [address] [place] [address] [address] [place] [address] Dynamics Ax Technical Architect Family Medicine 05/05/19
--- OUTSIDE RECORDS SUMMARY | 2024-08-19 12:41 | XMS_ITS | Encounter Summary ---
Author Organization [facility] Address [address] [place] [address] Care Team Providers Care Street Light Servicer Name Role Phone None, Provider Primary Care Provider Unavaila ble Justine Mei Primary Care Provider [phone] Encounter Details Date Type Department Care Team (Latest Contact Info) Description 10/24/2017 Abstract [facility] Medical Group , Generic Conversion, Social History [...] on filedocumented in this encounter Care Teams Street Light Servicer Relationship Specialty Start Date End Date None, Provider, PCP - General 12/17/17 02/12/18 Justine Mei PA [address] [place] [address] PCP - General 02/13/18 documented as of this encounter
[2024-08-19] MEDS: ONDANSETRON HCL ODT 4 MG TABLET PO (12:42)
[2024-08-19] MEDS: HYDROmorphone HCL INJ (*CRX) 2 MG/ML VIAL 0.5 MG IM (12:42)
--- OUTSIDE RECORDS SUMMARY | 2024-08-19 12:42 | XMS_ITS | Encounter Summary ---
Author Organization [facility] Address [address] [place] [address] Care Team Providers Care Flour Blender Name Role Phone None, Provider Primary Care Provider Unavaila ble Justine Mei Primary Care Provider Encounter Details Date Type Department Care Team (Late st Contact Info) Description 01/25/2018 Abstract [facility] Neuroscience [facility] [address] [place] [phone] Sagar Reed MD [address] [place] [id number] Social History Tobacco Use Types Packs/Day Years [...] on filedocumented in this encounter Care Teams Flour Blender Relationship Specialty Start Date End Date None, Provider, PCP - General 12/17/17 02/12/18 Justine Mei PA [address] [place] [address] PCP - General 02/13/18 documented as of this encounter
--- OUTSIDE RECORDS SUMMARY | 2024-08-19 12:42 | XMS_ITS | Data Portability ---
Author Organization [facility] Address [address] [place] [address] Care Team Providers Care Collect On Delivery Clerk Name Role Phone CLAUDIA COLVIN Manager Editorial COLLEEN SINGH Primary Care Provider [phone] Assessment No assessment recorded. Plan of Treatment Reminders Order Date Submit Date Provider Last Modified By Organization Details Last Modified Time Details Appointments None record ed. Lab SARS CoV 2 RNA (COVID -19), QL, industrial coffee grinder-PC R, respir atory specim - aurora @ noon 10/20 020 [facility] (Lab), [address] [place], [address], 0 09:55:30 CMP, serum or plasma 2019 020 VANES[facility], [address] [facility] [address], [address], 0 13:07:51 CBC 2019 020 VANESSA [facility], [address] [facility], [facility], [place], [address], 0 13:07:52 TSH, serum or plasma 2019 020 VANESSA [facility], [address] [facility], [facility], [place], [address], 0 13:07:53 lipid panel, serum 2019 020 VANESSA [facility], [address] [facility], [address], [place], [address], 0 13:07:53 HbA1c (hemog lobin A1c), blood 2019 020 VANESSA In-Office Order, Internal Use Only DO Not Attach Compendium DO Not Attach Compendium, Do Not Delete/merge, [id number] 0 11:20:12 pap, IG + HPV 2019 020 [id number] [facility], [address] [facility], [address], [place], [address], 1 03:32:30 Referral urogyn ecolog ist referr al 2019 020 VANESSA Not available 0 13:38:40 endocr inolog y referr al 2019 020 [facility]SA [facility] Tod Barker, 2 [facility] [address], [place], [address], 0 08:43:26 Procedures None record ed. Surgeries None record ed. Imaging XR, chest, 2 view 2020 021 MONTROSE Mamie Alvarez (Radiology), 1 [facility] [place], [address], 1 14:26:59 exerci se stress test 2020 021 MONTROSE Mamie [facility] (Radiology), 1 [facility] [place], [address], 1 14:06:17 MAMMO, screen ing, digita l, bilate ral 2019 020 deldredsmit Mamie [facility] (Radiology), 1 [facility] [place], [address], 0 11:25:54 Medication Orders ciprof loxaci n 0.3 % eye drops 2020 021 INTERFACE [facility], [address] [place] [address], [address], 1 16:16:33 Advair Diskus 250 mcg-50 mcg/do se powder for inhala tion 2020 021 INTERFACE [facility], [address] [place] [address], [address], 1 16:16:23 albute rol sulfat e HFA 90 mcg/ac tuatio n aeroso l inhale r 2019 020 INTERFACE [facility] [address] [place], [address], 0 16:01:42 amoxic illin 875 mg tablet 2019 INTERFACE [facility] [address] [place], [address], 0 16:01:51 ceftri axone 1 gram soluti on for inject ion 2019 [email or web address] Not available 0 15:52:44 Patient TargetsNo targets recorded. Patient Instructions Encounter Date Encounter Id Patient Instructions Last Modified By Organization Details Last Modified Time 05/01/2019 [id number] mammogram: about this test deledsmitsuzan Not available 05/01/2019 11:25:54 bladder training: care instructions deldredsmith Not available 05/01/2019 10:54:24 kegel exercises: care instructions deldredsmith Not available 05/01/2019 10:54:24 Stress Incontinence: Care Instructions [email or web address] Not available 05/01/2019 10:54:24 05/27/2019 [id number] learning about type 2 diabetes jnanney Not available 05/27/2019 10:51:28 type 2 diabetes: care instructions jnanney Not available 05/27/2019 10:51:28 10/20/2019 [id number] Reviewed the following recommendations: -Stay home and [...] Female stress incontinence Referring Physician: Claudia Colvin, Motor Electrician, Encounter Date: 05/01/2019 Endocrinology Referral for T estosterone level below reference range Referring Physician: Claudia Colvin, Motor Electrician, Encounter Date: 05/01/2019 Results Created Date Observation Date Name Description Value Unit Range Abnormal Flag Note LastModifiedBy Organization Detail LastModifiedTime 05/01/1905/05/2019 pap, IG + HPV diagnosis: Jesus ARCOS FOR INTRA EPITH ELIJARET [place] OR RUBEN LOPES . Not Available [facility] ([facility]) [address] [facility], [place], [address], 05/05/2019 11:08:59 05/01/1905/05/2019 pap, IG + HPV specimen adequacy: Jesus haq Satis facto batool for evalu ation . Endoc ervic al and/o r squam ous metap lasti c cells (endo cervi arin compo nent) are prese nt. Not Available [facility] ([facility]) [address] [facility], [place], [address], 05/05/2019 11:08:59 05/01/19 20 05/05/2019 pap, IG + HPV clinician provided ICD10: Jesus haq Z01.4 19 Not Available [facility] ([facility]) [address] [facility], [place], [address], 05/05/2019 11:08:59 05/01/19 20 05/05/2019 pap, IG + HPV performed by: Commen t Shelli M Panfilo , Cytot echno logis t (ASCP ) Not Available [facility] ([facility]) [address] [facility], [place], [address], 05/05/2019 11:08:59 05/01/19 20 05/05/2019 pap, IG + HPV . . Not Available [facility] ([facility]) [address] [facility], [place], [address], 05/05/2019 11:08:59 05/01/19 20 05/05/2019 pap, IG [...] ts do occur . Not Available [facility] ([facility]) [address] [facility], [place], [address], 05/05/2019 11:08:59 05/01/19 20 05/05/2019 pap, IG + HPV test methodology: Commen t This liqui d based ThinP rep(R ) pap test was scree stoney with the use of an image guide alejandra lacy. Not Available [facility] ([facility]) [address] [facility], [place], [address], 05/05/2019 11:08:59 05/01/1905/05/2019 pap, IG + HPV HPV aptima Negati ve negati ve This nucle ic acid ampli ficat ion test detec ts fourt een high- risk HPV types (16,1 8,31, 33,35 ,39,4 5,51, 52,56 ,58,5 9,66, 68) witho ut diffe renti ation . Not Available [facility] ([facility]) [address] [facility], [place], [address], 05/05/2019 11:08:59 05/27/19 20 05/28/2019 CMP, serum or plasm a glucose 136 mg/dL 65-99 above high normal Not Available [facility] ([facility]) [address] [place], [address], 05/29/2019 13:07:51 05/27/19 20 05/28/2019 CMP, serum or plasm a BUN 10 mg/dL 6-24 Not Available [facility] ([facility]) [address] [place], [address], 05/29/2019 13:07:51 05/27/19 20 05/28/2019 CMP, serum or plasm a creatinine 0.71 mg/dL 0.57-1 .00 Not Available [facility] ([facility]) [address] [place], [address], 05/29/2019 13:07:51 05/27/19 20 05/28/2019 CMP, serum or plasm a eGFR if nonafricn AM 96 mL/mi n/1.7 3 >59 Not Available [facility] ([facility]) [address] [place], [address], 05/29/2019 13:07:51 05/27/19 20 05/28/2019 CMP, serum or plasm a eGFR if africn AM 111 mL/mi n/1.7 3 >59 Not Available [facility] ([facility]) [address] [place], [address], 05/29/2019 13:07:51 05/27/19 20 05/28/2019 CMP, serum or plasm a BUN/creatini ne ratio 14 9-23 Not Available [facility]) [address] [place], [address], 05/29/2019 13:07:51 05/27/19 20 05/28/2019 CMP, serum or plasm a sodium 143 mmol/ L 134-14 4 Not Available [facility] ([facility]) [address] [place], [address], 05/29/2019 13:07:51 05/27/19 20 05/28/2019 CMP, serum or plasm a potassium 4.6 mmol/ L 3.5-5. 2 Not Available [facility] ([facility]) [address] [place], [address], 05/29/2019 13:07:51 05/27/19 20 05/28/2019 CMP, serum or plasm a chloride 103 mmol/ L 96-106 Not Available [facility] ([facility]) [address] [place], [address], 05/29/2019 13:07:51 05/27/19 20 05/28/2019 CMP, serum or plasm a carbon dioxide, total 25 mmol/ L 20-29 Not Available [facility] ([facility]) [address] [place], [address], 05/29/2019 13:07:51 05/27/19 20 05/28/2019 CMP, serum or plasm a calcium 9.4 mg/dL 8.7-10 .2 Not Available [facility] ([facility]) [address] [facility], [place], [address], 05/29/2019 13:07:51 05/27/19 20 05/28/2019 CMP, serum or plasm a protein, total 6.9 g/dL 6.0-8. 5 Not Available [facility] ([facility]) [address] [place], [address], 05/29/2019 13:07:51 05/27/1905/28/2019 CMP, serum or plasm a albumin 4.1 g/dL 3.8-4. 9 Not Available [facility] ([facility]) [address] [place], [address], 05/29/2019 13:07:51 05/27/19 20 05/28/2019 CMP, serum or plasm a globulin, total 2.8 g/dL 1.5-4. 5 Not Available [facility] ([facility]) [address] [place], [address], 05/29/2019 13:07:51 05/27/19 20 05/28/2019 CMP, serum or plasm a A/G ratio 1.5 1.2-2. 2 Not Available [facility] ([facility]) [address] [place], [address], 05/29/2019 13:07:51 05/27/19 20 05/28/2019 CMP, serum or plasm a bilirubin, total <0.2 mg/dL 0.0-1. 2 Not Available [facility] ([facility]) [address] [facility], [place], [address], 05/29/2019 13:07:51 05/27/19 20 05/28/2019 CMP, serum or plasm a alkaline phosphatase 108 IU/L 39-117 Not Available [facility]) [address] [place], [address], 05/29/2019 13:07:51 05/27/1905/28/2019 CMP, serum or plasm a AST (SGOT) 14 IU/L 0-40 Not Available [facility] ([facility]) [address] [place], [address], 05/29/2019 13:07:51 05/27/1905/28/2019 CMP, serum or plasm a ALT (SGPT) 14 IU/L 0-32 Not Available [facility] ([facility]) [address] [place], [address], 05/29/2019 13:07:51 05/27/19 20 05/28/2019 CBC WBC 4.6 x10e3 /uL 3.4-10 .8 Not Available [facility] ([facility]) [address] [place], [address], 05/29/2019 13:07:52 05/27/19 20 05/28/2019 CBC RBC 4.32 x10e6 /uL 3.77-5 .28 Not Available [facility] ([facility]) [address] [facility], [place], [address], 05/29/2019 13:07:52 05/27/19 20 05/28/2019 CBC hemoglobin 13.3 g/dL 11.1-1 5.9 Not Available [facility] ([facility]) [address] [facility], [place], [address], 05/29/2019 13:07:52 05/27/19 20 05/28/2019 CBC hematocrit 39.7 % 34.0-4 6.6 Not Available [facility] ([facility]) [address] [facility], [place], [address], 05/29/2019 13:07:52 05/27/19 20 05/28/2019 CBC MCV 92 fL 79-97 Not Available [facility] ([facility]) [address] [facility], [place], [address], 05/29/2019 13:07:52 05/27/1905/28/2019 CBC MCH 30.8 pg 26.6-3 3.0 Not Available [facility] ([facility]) [address] [facility], [place], [address], 05/29/2019 13:07:52 05/27/19 20 05/28/2019 CBC MCHC 33.5 g/dL 31.5-3 5.7 Not Available [facility] ([facility]) [address] [facility], [place], [address], 05/29/2019 13:07:52 05/27/19 20 05/28/2019 CBC RDW 13.0 % 11.7-1 5.4 Not Available [facility] ([facility]) [address] [facility], [place], [address], 05/29/2019 13:07:52 05/27/19 20 05/28/2019 CBC platelets 372 x10e3 /uL 150-45 0 Not Available [facility] ([facility]) [address] [facility], [place], [address], 05/29/2019 13:07:52 05/27/19 20 05/28/2019 CBC NRBC 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 BLENDING 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 Not Available [facility] ([facility]) [address] [facility], [place], [address], 05/29/2019 13:07:52 05/27/19 20 05/28/2019 lipid panel , serum cholesterol, total 179 mg/dL 100-19 9 Not Available [facility] ([facility]) [address] [facility], [place], [address], 05/29/2019 13:07:53 05/27/19 20 05/28/2019 lipid panel , serum triglyceride s 94 mg/dL 0-149 Not Available [facility]) [address] [facility], [place], [address], 05/29/2019 13:07:53 05/27/19 20 05/28/2019 lipid panel , serum HDL cholesterol 71 mg/dL >39 Not Available [facility]) [address] [facility], [place], [address], 05/29/2019 13:07:53 05/27/19 20 05/28/2019 lipid panel , serum VLDL cholesterol arin 19 mg/dL 5-40 Not Available [facility]) [address] [facility], [place], [address], 05/29/2019 13:07:53 05/27/19 20 05/28/2019 lipid panel , serum LDL cholesterol calc 89 mg/dL 0-99 Not Available [facility]) [address] [facility], [place], [address], 05/29/2019 13:07:53 05/27/19 20 05/28/2019 lipid panel , serum comment: PRODUCT BLENDING SUPERVISOR Not Available [facility] ([facility]) [address] [facility], [place], [address], 05/29/2019 13:07:53 05/27/1905/29/2019 TSH, serum or plasm a TSH-icma 1.6 uu/mL Refer ence Range : Non-P regna nt Adult 0.450 -4.50 0 Pregn kimberly First Trime ster 0.100 -4.00 0 Secon d Trime ster 0.200 -4.00 0 Third Trime ster 0.300 -4.50 0 Not Available [facility] [address] [facility], [place], [address], 05/29/2019 13:07:53 05/27/19 20 05/28/2019 cardi ovasc ular asses sment panel , serum interpretati on Note Suppl ement al repor t is avail able. Not Available [facility] ([facility]) [address] [facility], [place], [address], 05/29/2019 13:07:54 05/27/19 20 05/28/2019 cardi ovasc ular asses sment panel , serum pdf image . Not Available [facility] ([facility]) [address] [facility], [place], [address], 05/29/2019 13:07:54 05/27/1905/27/2019 HbA1c (hemo globi n A1c), blood HbA1c 6.6 Not Available In-Office Order Internal Use Only DO Not Attach Compendium DO Not Attach Compendium, Do Not Delete/merge, [id number] 05/27/2019 10:49:17 05/30/1906/14/2019 fecal occul t blood , immun oassa y, stool occult blood, fecal, ia Negati ve negati ve Not Available [facility] ([facility]) [address] [facility], [place], [address], 06/15/2019 15:07:48 05/30/1906/12/2019 one speci men ident ifier one specimen identifier Commen t The speci men recei brea inclu ded only one patie nt ident ifier on the prima ry colle ction conta iner. Our labor atory accre clint g agenc y state s All prima ry speci men conta iners must be label ed with 2 ident ifier s at the time of colle ction . Not Available [facility] ([facility]) [address] [facility], [place], [address], 06/15/2019 15:07:49 10/21/19 20 10/21/2019 SARS CoV 2 RNA (COVI D-19) , QL, industrial coffee grinder-P CR, respi rator y speci men sars - cov - 2 PCR NEGATI VE mL Not Available [facility] (Lab) [address] [place], [address], 10/23/2019 09:55:30 10/21/1910/21/2019 SARS CoV 2 RNA (COVI D-19) , QL, industrial coffee grinder-P CR, respi rator y speci men covidcom1 [...] of this test metho d. Not Available [facility] (Lab) [address] [facility], [place], [address], 10/23/2019 09:55:30 10/21/1910/21/2019 SARS CoV 2 RNA (COVI D-19) , QL, industrial coffee grinder-P CR, respi rator y speci men covidcom2 Posit junito resul ts are indic ative of the prese nce of SARS- CoV-2 RNA and do not rule out bacte rial infec tion or co-in fecti on with other virus es. Not Available [facility] ([facility] [address], [place], [address], 10/23/2019 09:55:30 10/21/19 20 10/21/2019 SARS CoV 2 RNA (COVI D-19) , QL, industrial coffee grinder-P CR, respi rator y speci men covidcom3 Test resul ts shoroberto d be used along with other clini arin obser vatio ns, patie nt histo ry, epide miolo gical infor matio n and labor atory data in makin g the diagn osis. Not Available [facility] (Lab) [address], [place], [address], 10/23/2019 09:55:30 10/21/19 20 10/21/2019 SARS CoV 2 RNA (COVI D-19) , QL, industrial coffee grinder-P CR, respi rator y speci men covidcom4 [...] or revok ed soone r. Not Available [facility] (Lab) [address], [place], [address], 10/23/2019 09:55:30 10/21/19 20 10/21/2019 SARS CoV 2 RNA (COVI D-19) , QL, industrial coffee grinder-P CR, respi rator y speci men covidcom5 [facility] Ros[facility] in[facility] Labor atory is certi fied under CLIA- 88 as quali fied to perfo rm high compl exity testi ng. This testi ng [facility] [place] [address] (CLIA Licen se #[id number] [id number], CAP #[id number], AU-ID #[id number]). Not Available [facility] (Lab) [address] [place], [address], 10/23/2019 09:55:30 10/21/19 20 10/21/2019 SARS CoV 2 RNA (COVI D-19) , QL, industrial coffee grinder-P CR, respi rator y speci men covidcom6 Facts heet for healt hcare provi ders: https ://Fluorofinder.Glowpoint .gov/ media /8605 56/do wnloa d Facts heet for patie nts: https ://Grafoid .gov/ media /1364 57/do wnloa d Not Available [facility] (Lab) [address], [place], [address], 10/23/2019 09:55:30 04/21/19 21 04/20/2020 exerc ise radhas s test No observ ation record ed. [address] [place], [address], 05/05/2020 16:44:44 04/21/19 21 04/20/2020 XR, chest , 2 view No observ ation record ed. [address] [place], [address], 04/22/2020 17:00:56 Result Notes None recorded. Problems Name Problem SNOMED Code Status Onset Date Resolution Date Notes Provider Name and Address Organization Details Recorded Time Pain in pelvis 29195686 Active Not Available [facility] 01/13/2020 15:46:24 Problem Notes None recorded. Procedures Surgical History Date Name Laterality Status Provider Name and Address Organization Details Recorded Time 0 Date of Last Mammogram completed Raysa Noe [place] - [facility] 03/18/2020 15:28:20 0 Date of Last Pap Smear completed Raysa GRANT Noe [facility] 03/18/2020 15:28:14 5 Most Recent Mammogram completed Neeru Nguyen MA [facility] 08/18/2015 10:43:32 Tubal Ligation completed Neeru Nguyen MA [facility] 08/18/2015 10:43:32 Imaging Results None recorded. Procedure Notes None recorded. Medical Equipment None [...] propionate 50 mcg/actuati on nasal spray,suspe nsion Melvin 1 spray every day by intranasa l [...] Available Not Available No t Available One[employer] Delica Lancets 33 gauge active Not Available Not [...] Available Vitals Date Recorded Body height Body temperature Oxygen saturation Oxygen saturation in Arterial blood by Pulse oximetry Heart rate Body mass index (BMI) Body weight Systolic blood pressure Diastolic blood pressure Provider Name and Address Organization Details Last Updated DateTime 1 165.1 cm 96.6 [degF] 97 % 97 % 91 /min 29.6 kg/m2 05948.4 4 g 106 mm[Hg] 70 mm[Hg] Raysa Noe MA [place] - [facility] 1 15:30:25 Date Recorded Body height Body mass index (BMI) Body weight Systolic blood pressure Diastolic blood pressure Provider Name and Address Organization Details Last Updated DateTime 05/01/2019 165.1 cm 29.7 kg/m2 60527.63 g 138 mm[Hg] 80 mm[Hg] Neeru Nguyen MA [facility] 0 10:27:24 Date Recorded Body height Body mass index (BMI) Body weight Oxygen saturation Oxygen saturation in Arterial blood by Pulse oximetry Heart rate Body temperature Systolic blood pressure Diastolic blood pressure Provider Name and Address Organization Details Last Updated DateTime 0 165.1 cm 29.8 kg/m2 63853.0 3 g 95 % 95 % 70 /min 98.2 [degF] 108 mm[Hg] 68 mm[Hg] Bere Dmoinguez MA [place] - [facility] 0 10:19:23 Social History Question Answer Notes LastModified by [employer] ion Details LastModified Time Tobacco Smoking Status Former Smoker Mony Hoffmann MA null, [facility] 10/19/2019 15:54:29 What Is Your Level Of Caffeine Consumption? Moderate Information not available 10/19/2019 How Much Tobacco Do You Chew? None Information not available 10/19/2019 What Type Of Diet Are You Following? DIABETIC Information not available 10/19/2019 Which Illicit Or Recreational Drugs Have You Used? None Information not available 10/19/2019 Live Alone Or With Others? With Others Information not available 10/19/2019 What Was The Date Of Your Most Recent Tobacco Screening? 03/18/2020 Information not available 03/18/2020 General Stress Level High Information not available 03/18/2020 On What Date Was Tobacco Cessation Counseling Provided? 03/18/2020 Information not available 03/18/2020 Sex: Unknown Functional Status Question Answer Note LastModified by [employer] [facility] [employer] ion Details LastModified Time What is your level of alcohol consumption? None Information not available 10/19/2019 Do you or have you ever used smokeless tobacco? Never used smokeless tobacco Information not available 10/19/2019 Are you currently employed? Yes Information not available 10/19/2019 Are you able to care for yourself? 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 Never used electronic cigarettes Information not available 10/19/2019 Mental Status None recorded. Family [...] SNOMED-CT Code Diagnosis ICD10 Code Diagnosis Note [id number] LUDY Hinton ([place] [address]) 2 [facility] [place] [address] 08/18/2015 10:35:18 08/18/2015 11:18:34 Pain in pelvis 41049045 R10.2 Gynecologi c examination 55085199 Z01.016 [id number] LUDY Hinton ([place] [address]) 2 [facility] [place] [address] 08/03/2016 10:35:06 08/16/2016 08:30:55 Menopausal syndrome 017549914 N95.9 [id number] PAOLA Hinton Ziggy Sevilla [address] [place] [address] 05/08/2017 15:47:40 05/10/2017 12:24:36 Menopausal syndrome 825542405 N95.9 [id number] [facility] [address] [place] [address] 06/21/2017 09:44:29 06/21/2017 10:39:36 Dysuria 68888295 R30.0 Increased frequency of urination 283929332 R35.0 Diabetes mellitus 619264 09 E11.9 Eczema 26058373 L20.89 [id number] Colleen Singh PA-C [facility] [address] [facility] [place] [address] 03/25/2018 11:11:03 03/25/2018 13:15:17 Diabetes mellitus 64946748 E11.9 Chronic le ft maxillary sinusitis 5473005037 [id number] J32.0 [id number] Colleen Singh PA-C [facility] [address] [place] [address] 05/13/2018 11:42:33 05/13/2018 12:51:52 [id number] [facility] [address] OB [address] [facility] [place] [address] 09/03/2018 11:05:51 09/04/2018 08:37:20 Menopausal syndrome 786323198 N95.9 1. Discussed hormonal options and otc herbal options for menopausal management . Discussed risk factors and side effects associated with both options including increase risk of cancer, heart attack and stroke, blood clots. 2. Pt would like to continue use of hrt. 5. Pt to call and schedule for annual or sooner if needed. [id number] [facility] OB [address] [facility] [place] [address] 05/01/2019 10:04:17 05/04/2019 10:56:00 Gynecologic examination 53692853 Z01.419 1. Counseled regarding prevention of STD's , condom use 2. Pap done and mammogram order given 3. Advised avoidance of tobacco, alcohol, and drugs . 4. Counseled regarding folic acid supplement ation, calcium needs and prevention of osteoporos is . 5. BSE reviewed and recommende d. 6. Follow up in one year or sooner if needed. Screening mammography 24 820390 Z12.31 Importance of yearly mammograms and sbe exam discussed with pt. Mammogram order given, pt verbalized understand ing. Female str ess incontinence 74086773 N39.3 Pt educated on causes and s/s of incontinen ce including but not limited to pt weight, pushing/pu lling/lift ing, vaginal deliveries and hysterecto my. Pt to follow up with urology at pt's request for referral. Testostero ne level below reference range 504566071 R79.89 Will obtain hrt tests that pt had done with pcp and refer to endo for further evaluation . [id number] CINDI Duncan [address] [place] [address] 05/27/2019 10:03:45 05/27/2019 11:39:37 Type 2 diabetes mellitus 29537967 E11.9 Acute bron chitis with bronchospasm 60813595 J20.9 [id number] CINDI [facility] [address] [place] [address] 10/19/2019 10:06:20 10/19/2019 16:30:22 Moderate persistent asthma [id number] J45.42 [id number] JALYN Rose [address] [place] [id number] 10/20/2019 15:19:36 10/21/2019 08:36:21 Suspected COVID-19 [id number] Z03.221 [id number] Colleen Singh PA-C [facility] [address] [place] [address] 03/18/2020 15:23:38 03/21/2020 08:53:53 Acute otitis externa of left ear [id number] H60.512 Dyspnea on exertion 6084 5006 R06.09 Health Concerns Section Related Observation LastModified by Organization Detai ls LastModified Time None Recorded Concern Status LastModified by Organization Details LastModified Time None Recorded Advance Directives Directive None Recorded Payers Insurance Date Sequence Insurance Name Policy Number Policy Farooq Covered Member ID Farooq Member ID Guarantor Name 07/09/2023 1 [employer] [id number] Justine Dickson [id number] Justine Dickson 05/01/2019 2 [employer] - ALLIED BENEFITS - OPEN ACCESS Justine Dickson [id number] Justine Dickson 10/26/2020 1 [facility] ([facility]) PLAN A Justine Dickson [id number] Justine Dickson Notes Date Note Type Note [...] schedule mammogram - states she now sees [facility] in [place] for pcp. states that pcp did hormonal labs on her and they were off. pt will fax copy of labs to this provider- pt states she is doing well with hrt, only occasional hot flashes- last pap 08/18/15 normal- needs mammogram order- would like referral for urology, states she urinates all of the time and has no bladder control LUDY Hinton Attn: Accounting,[address] [facility], [place], [address], [facility] Wilshire Axon 05/01/2019 10:54:47 05/27/2019 text/html Wheezing, SOB, d ry cough, muscle weakness, clogged ears, headaches on bilateral tempels, fatigue..using albuterol once/day..symptoms for 3 days. no fever. history of getting PNA each year. had left over tesGoodyTag perlSolarcentury that she took and help. wheezing at rest. SOB with mild activity. Says symptoms aren't terrible right now but it's getting worse and she doesn't want repeats of years past. taking tylenol once every day. won't try ibuprofen r/t COVID. denies sneezing, nasal drainage, ear pain, chest pain, chills. 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 seasonal allergies. Colleen Singh PA-C Attn: Accounting,[address] [facility], [place], [address], [facility] 05/27/2019 10:53:04 10/19/2019 text/html wheezin season....needs meds...tested at work...no covid. Colleen Singh PA-C Attn: Accounting,[address] [facility], [place], [address], [facility] 10/19/2019 16:01:59 10/20/2019 text/html COVID ScreeningReported bypatient.Onset/Durati [...] yesterday STEFANIE DOWNING NP Attn: Accounting,[address] [facility], [place], [address], [facility] 10/20/2019 16:11:57 03/18/2020 text/html For the last [...] myalgias. Colleen Singh PA-C Attn: Accounting,[address] [place], [address], [facility] 03/18/2020 16:20:24 OBGyn Episode No OBEpisode recorded.
--- OUTSIDE RECORDS SUMMARY | 2024-08-19 12:42 | XMS_ITS | Clinical Summary ---
Author Organization [facility] Address [address] [place] [address] Care Team Providers Care Manager Installation Name Role Phone Justine Mei Primary Care Provider [phone] Allergies Active Allergy Reactions Criticality Noted Date [...] Comments Blood Pressure 140/66 02/13/2018 2:35 PM NURSE EPIDEMIOLOGIST Pulse 93 02/13/2018 2:35 PM NURSE EPIDEMIOLOGIST Temperature - - Respiratory Rate - - [...] patient's age to complete this topic Insurance [employer] Care Teams Manager Installation Relationship Specialty Start Date End Date Justine Mei PA [address] [id number] PCP - General 02/13/18
[2024-08-19 13:10] VITALS: BP 145/75; PULSE 78; RESP 16; O2SAT 100
[2024-08-19 13:55] VITALS: BP 145/88; PULSE 80; RESP 18; O2SAT 98
== END 2024-08-19 13:55 | disposition home or self-care (01) ==
PROVIDERS: Emergency Provider Internal Medicine Critical Care Medicine; PCP Nurse Practitioner Family
DX: S83.512A Sprain of anterior cruciate ligament of left knee, initial encounter (principal); I10 Essential (primary) hypertension; E11.9 Type 2 diabetes mellitus without complications; X50.0XXA Overexertion from strenuous movement or load, initial encounter
CPT/HCPCS: 73562; 96372; 99283; A9270; J1171; L1830

== ENCOUNTER 2024-09-22 15:48 | Outpatient (CLI) | payer OTHER, SELFPAY ==
--- NOTE | 2024-09-22 15:53 | ECG_ITS ---
Test Date: 2024-09-22 16:27:55 Measurements Intervals [place] Rate: 85 P: 83 AK: 190 QRS: 98 QRSD: 94 T: 76 QT: 347 QTc: 415 Interpretive Statements SINUS RHYTHM RIGHT AXIS DEVIATION INCOMPLETE RIGHT BUNDLE BRANCH BLOCK DELAYED PRECORDIAL R/S TRANSITION MINIMAL Q WAVES- INFERIOR LEADS BORDERLINE ECG No previous ECG available for comparison Electronically Signed On 09-22-2024 17:34:09 CDT by Mina Sexton D.O.
--- OUTSIDE RECORDS SUMMARY | 2024-09-22 15:56 | XMS_ITS | Clinical Summary ---
Author Organization [facility] Address [address] [place] [address] Care Team Providers Care Assembler Camper Name Role Phone Justine Mei Primary Care Provider [phone] Allergies Active Allergy Reactions Criticality Noted Date [...] Comments Blood Pressure 140/66 02/13/2018 2:35 PM NUCLEAR WEAPONS CUSTODIAN Pulse 93 02/13/2018 2:35 PM NUCLEAR WEAPONS CUSTODIAN Temperature - - Respiratory Rate - - [...] patient's age to complete this topic Insurance [employer] Care Teams Assembler Camper Relationship Specialty Start Date End Date Justine Mei PA [address] [id number] PCP - General 02/13/18
--- OUTSIDE RECORDS SUMMARY | 2024-09-22 15:56 | XMS_ITS | Clinical Summary ---
Author Organization [facility] Address [address] [place] [address] Care Team Providers Care Chef Instructor Name Role Phone No, Physician Primary Care Provider [phone] Allergies No known active allergies Medications azithromycin [...] Encounters Date Type Department Care Team Description 09/02/2024 7:33 AM CDT - 09/02/2024 11:59 PM CDT Hospital Encounter [facility] [address] [place] [address] Left knee pain, unspecified chronicity Discharge Disposition: Discharge to home or self care 08/17/2024 7:07 AM CDT - 08/17/2024 8:33 AM CDT Emergency [facility] Emergency Department [address] [place] [address] Fidel Drake MD Left leg pain (Primary Dx) Discharge Disposition: Discharge to home or self care 08/16/2024 2:37 PM CDT - 08/16/2024 4:53 PM CDT Emergency [facility] Emergency Department [address] [place] [address] Acute pain of left lower extremity (Primary [...] on file Legal Sex Female 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 Gender Identity Not on file Sexual Orientation [...] Procedure Name Priority Date/Time Associated Diagnosis Comments MRI KNEE LEFT WO CONTRAST Schedule Routine, Read Routine (OP Routine) 09/02/2024 8:07 AM CDT Left knee pain, unspecified chronicity US VEIN DUPLEX LOWER EXTREMITY LEFT LIMITED [...] Recently Relevant to Health Maintenance Results * MRI Knee Left WO Contrast (09/02/2024 8:07 AM CDT) Anatomical Region Laterality Modality Lower Extremities Left Magnetic Reson ance 09/02/2024 12:1 3 PM CDT Narrative 09/02/2024 1:29 PM CDT EXAM DESCRIPTION: MRI KNEE LEFT WO CONTRAST REASON FOR STUDY: L knee pain Medial and posterior pain, stepped off a bus, missed the last step and felt a pop, 3 weeks ago, no prior surgery TECHNIQUE: Multiplanar, multisequence MRI of the left knee was performed without contrast. COMPARISON: Left knee radiographs August 16, 2024. FINDINGS: The cruciate and collateral ligaments are intact. High-grade posterior root medial meniscus radial tear is present with 5 mm displacement of the body into the medial gutter. Mild medial compartment chondrosis. Tiny inner margin lateral meniscus body tear or fraying are present. Mild lateral compartment chondrosis. The quadriceps and patellar tendons are intact. Moderate patellofemoral chondrosis. No fracture or aggressive marrow replacing lesion. Large knee joint effusion with synovitis. Mild pes anserinus bursitis. No soft tissue mass. Mild insertional semimembranosus tendinosis. IMPRESSION: 1. High-grade posterior root medial meniscus radial tear with 5 mm displacement of the body into the medial gutter. 2. Tiny inner margin lateral meniscus body tear versus inner margin fraying. 3. Qhsc-ie-qitkkgoj tricompartmental knee chondrosis. 4. Large knee joint effusion with synovitis. 5. Mild pes anserinus bursitis. Mild insertional semimembranosus tendinosis. THIS IS AN ELECTRONICALLY VERIFIED FINAL REPORT 09/02/2024 1:29 PM - Electronically signed by Zeeshan Floyd M.D. TH: TH Report ID: [id number] Reading Location: [id number] Procedure Note Zeeshan Floyd MD - 09/02/2024 EXAM DESCRIPTION: MRI KNEE LEFT WO CONTRAST REASON FOR STUDY: L knee pain Medial and posterior pain, stepped off a bus, missed the last step andfelt a pop, 3 weeks ago, no prior surgery TECHNIQUE: Multiplanar, multisequence MRI of the left knee was performed without contrast. COMPARISON: Left knee radiographs August 16, 2024. FINDINGS: The cruciate and collateral ligaments are intact. High-grade posterior root medial meniscus radial tear is present with 5 mm displacement of the body into the medial gutter. Mild medial compartment chondrosis. Tiny inner margin lateral meniscus body tear or fraying are present. Mild lateral compartment chondrosis. The quadriceps and patellar tendons are intact. Moderate patellofemoral chondrosis. No fracture or aggressive marrow replacing lesion. Large knee joint effusion with synovitis. Mild pes anserinus bursitis.No soft tissue mass. Mild insertional semimembranosus tendinosis. IMPRESSION: 1. High-grade posterior root medial meniscus radial tear with 5 mm displacement of the body into the medial gutter. 2. Tiny inner margin lateral meniscus body tear versus inner marginfraying. 3. Aguh-og-fyqlodqb tricompartmental knee chondrosis. 4. Large knee joint effusion with synovitis. 5. Mild pes anserinus bursitis. Mild insertional semimembranosus tendinosis. THIS IS AN ELECTRONICALLY VERIFIED FINAL REPORT 09/02/2024 1:29 PM - Electronically signed by Zeeshan Floyd M.D. TH: Report ID: [id number] Reading Location: [id number] us Ramón Gold MD IMG MRI PROCEDURES Final Resu lt * US VEIN DUPLEX LOWER EXTREMITY LEFT [...] India Nevarez M.D. TW: TW Report ID: [id number] Reading Location: [id number] Procedure Note India Nevarez MD - 08/17/2024 [...] India Nevarez M.D. TW: TW Report ID: [id number] Reading Location: [id number] us Fidel Drake MD [facility] US PROCEDURES F inal Result * eGFR [...] of Race in Diagnosing Kidney Disease, JASN 202). The CKD-EPI equation should not be used for patients with unstable renal function and has not been validated in children and those over 70. Current interpretive data was last reviewed 2020. Blood 08/16/2024 4:26 PM CDT 08/16/2024 4:28 PM CDT us Johnny MOSLEY LAB BLOOD ORDERABLES Final R esult [facility] ([place]) 1 [facility] Department [place] [address] * (ABNORMAL) Comprehensive metabolic panel (08/16/2024 4:26 PM CDT) Sodium 136 135 - 145 mmol/L Potassium, pl 3.8 3.3 - 4.9 mmol/L [facility] Chloride 96(L) 97 - 110 mmol/L [facility] CO2 29 22 - 32 mmol/L [facility] ([place]) Anion gap 11 2 - 15 mmol/L [facility] BUN 5(L) 6 - 25 mg/dL [facility] ([place]) Creatinine 0.60 0.60 - 1.10 mg/dL [facility] ([place]) Glucose 94 70 - 199 mg/dL [facility] ([place] Comment: Interpretive Data Fasting glucose [...] 4:26 PM CDT 08/16/2024 4:28 PM CDT Johnny MOSLEY LAB BLOOD ORDERABLES Final R esult [facility] ([place]) 1 [facility] [place] [address] * (ABNORMAL) Differential, auto (08/16/2024 3:42 PM [...] revised on 2017. Basophil pct 1.1 % [facility] ([place]) Comment: Interpretive Data Percent cell count reference ranges are not reported, since discordance with absolute values may lead to misinterpretation of CBC data. Current Interpretive Data was last revised on 2017. Blood 08/16/2024 3:42 PM CDT 08/16/2024 3:46 PM CDT us Johnny MOSLEY LAB BLOOD ORDERABLES Final R esult [facility] ([place]) 1 [facility] Department [place] [address] * (ABNORMAL) CBC with auto differential (08/16/2024 3:42 PM CDT) WBC 10.04(H) 3.80 - 9.90 K/cumm Hgb 13.4 11.9 - 15.5 g/dL [facility] ([place]) Hct 40.4 35.6 - 45.5 % [facility] ([place]) Plt 291 150 - 400 K/cumm [facility] ([place]) MPV 10.3 9.1 - 12.3 fL [facility] ([place]) RBC 4.44 3.90 - 5.20 M/cumm [facility] ([place]) MCV 91.0 81.3 - 96.4 fL [facility] ([place]) MCH 30.2 27.1 - 33.3 pg [facility] ([place]) MCHC 33.2 32.3 - 35.7 g/dL [facility] ([place]) RDW CV 12.6 11.1 - 14.9 % [facility] ([place]) RDW SD 41.3 35.7 - 48.1 fL [facility] ([place]) NRBC abs 0.00 0.00 - 0.01 K/cumm [facility] ([place]) Blood 08/16/2024 3:42 PM CDT 08/16/2024 3:46 PM CDT Johnny MOSLEY LAB BLOOD ORDERABLES Final R esult Performing Organization Address City/[facility] Co de Phone Number [facility] ([place]) 1 [facility] [employer] [place] [address] * (ABNORMAL) aPTT (08/16/2024 3:42 PM CDT) aPTT 20(L) 28 - 38 sec [facility] ([place]) Comment: Interpretive Data Heparin therapeutic range: 66.0 - 100.0 seconds. Range based on correlation with therapeutic heparin activity range of 0.3 - 0.7 Units/mL. Current interpretive data was last revised on 2022. Blood 08/16/2024 3:42 PM CDT 08/16/2024 3:46 PM CDT Johnny MOSLEY LAB BLOOD ORDERABLES Final R esult Performing Organization Address City/[facility]/ZIP Co de Phone Number [facility] ([place]) 1 [facility] [place] [address] * Protime-INR (08/16/2024 3:42 PM CDT) PT 10.5 9.7 - 13.0 sec [facility] ([place]) INR 0.97 0.90 - 1.20 [facility] ([place]) Comment: Interpretive data Oral anticoagulant therapeutic ranges: Venous thromboembolism prophylaxis or treatment: 2.0-3.0 CARDIOLOGY Standard range: 2.0-3.0 High-intensity range: 2.5-3.5 Refer to indication-specific guidelines for appropriate target ranges for prosthetic heart valve replacement. Current interpretive data was last revised on 2019. Blood 08/16/2024 3:42 PM CDT 08/16/2024 3:46 PM CDT Johnny MOSLEY LAB BLOOD ORDERABLES Final R esult [facility] ([place]) 1 [facility] Department [place] [address] * (ABNORMAL) D-dimer, quantitative (08/16/2024 3:42 PM CDT) D-Dimer 763(H) <=499 ng/mL FEU [facility] ([place]) Comment: Interpretive data FDA approved the D-dimer, [...] BLOOD ORDERABLES Final R esult [facility] [place] 1 [facility] Department [place] [address] * XR Knee Left 3 Views (08/16/2024 [...] Geoffrey Hatch M.D. NS: NS Report ID: [id number] Reading Location: [id number] Procedure Note Geoffrey Hatch MD - 08/16/2024 [...] Geoffrey Hatch M.D. NS: NS Report ID: [id number] Reading Location: [id number] Johnny MOSLEY IMG XR PROCEDURES Final Resu lt * COLONOSCOPY IMAGES (12/23/2015) Anatomical Region Laterality Modality Other Narrative 12/23/2015 Ordered by an unspecified provider. Historical Provider GI PROCEDURE ORDERABLES F inal Result from Last 3 Months or Most Recently Relevant to Health Maintenance Insurance [facility] CHOICE PLUS WORKERS COMPENSATION GENERIC Member Subscriber Plan / Payer (Ef fective 2024-Present) Name:Justine Dickson Relation to Subscriber:Employee Name:[employer] (Work) Address: [place] [address] Payer ID:[id number] Group ID:Not on file Type:WORKERS COMPENSATION Address: [address] CHOICE PLUS Care Teams Chef Instructor Relationship Specialty Start Date End Date No, Physician PCP - General 08/16/24
--- OUTSIDE RECORDS SUMMARY | 2024-09-22 15:56 | XMS_ITS | Clinical Summary ---
Author Organization [facility] Address [address] [facility] [place] [address] Phone Care Team Providers Care Time Clock Mechanic Name Role Phone Claudia Gonzalez APRN, MOLD SPRAYER Unavailable [phone] Allergies No known active allergies Medications armodafinil (NUVIGIL) 150 MG Tablet armodafinil 150 mg tablet Active ergocalciferol (VITAMIN D) 37710 UNIT Capsule TAKE 1 CAPSULE BY MOUTH [...] years) (1 of 2 - PCV) 11/23/1982 Pap Smear 11/23/1984 Cervical Cancer Screening (CCS) 11/23/1993 HPV/Cotest 11/23/1993 Cologuard 11/23/2008 Colonoscopy 11/23/2008 Colorectal Cancer Screening 11/23/2008 Immunochemical Fecal Occult Blood 11/23/2008 Zoster Immunization (1 of 2) 11/23/2013 Diabetes: Hemoglobin A1c 09/22/2019 03/24/2019 Diabetes: Nephropathy Screening 03/24/2020 0 SARS-COV-2 Immunization ( - 2023-25 season) 2023 Respiratory Syncytial Virus (RSV) Immunization (Adult) (1 - Risk 60-74 years 1-dose series) 2023 Influenza Immunization (#1) 2024 Hepatitis B Immunization Aged Out No [...] A1C (03/24/2019) HGB-A1C 6.5 % Blood 03/24/2019 us Holley Patel APRN, CNP CHEMISTRY ORDERABLES F inal Result * CMP (COMPREHENSIVE METABOLIC PANEL) (03/24/2019) Blood us Holley Patel APRN, CNP CHEMISTRY ORDERABLES F inal Result from Last 3 Months or Most Recently Relevant to Health Maintenance Insurance [employer]ianboom Care Teams Time Clock Mechanic Relationship Specialty Start Date End Date Claudia Gonzalez APRN, CNP [address] [place] [address] [place] [address] Local Driver Family Medicine 05/05/19
--- OUTSIDE RECORDS SUMMARY | 2024-09-22 15:56 | XMS_ITS | Encounter Summary ---
Author Organization [facility] Address [address] [place] [address] Care Team Providers Care Research Kennel Supervisor Name Role Phone None, Provider Primary Care Provider Unavaila ble Justine Mei Primary Care Provider [phone] Encounter Details Date Type Department Care Team (Late st Contact Info) Description 01/25/2018 Abstract [facility] Neuroscience [facility] [address] [place] [phone] Sagar Reed MD [address] [place] [id number] Social History Tobacco Use Types Packs/Day Years [...] on filedocumented in this encounter Care Teams Research Kennel Supervisor Relationship Specialty Start Date End Date None, Provider, PCP - General 12/17/17 02/12/18 Justine Mei PA [address] [place] [address] PCP - General 02/13/18 documented as of this encounter
--- OUTSIDE RECORDS SUMMARY | 2024-09-22 15:56 | XMS_ITS | Encounter Summary ---
Author Organization [facility] Address [address] [place] [address] Care Team Providers Care Magazine Publisher Name Role Phone None, Provider Primary Care Provider Unavaila ble Justine Mei Primary Care Provider [phone] Encounter Details Date Type Department Care Team (Latest Contact Info) Description 10/24/2017 Abstract [facility] , Generic Conversion, [...] on filedocumented in this encounter Care Teams Magazine Publisher Relationship Specialty Start Date End Date None, Provider, PCP - General 12/17/17 02/12/18 Justine Mei PA [address] [place] [address] PCP - General 02/13/18 documented as of this encounter
--- OUTSIDE RECORDS SUMMARY | 2024-09-22 15:56 | XMS_ITS | Referral Summary ---
Author Organization [facility] Address 1 [place] [address] Care Team Providers Care Geothermal Plant Manager Name Role Phone No, Physician Primary Care Provider [phone] Encounters Date Type Department Care Team Description 09/02/2024 7:33 AM CDT - 09/02/2024 11:59 PM CDT Hospital Encounter [facility] 1 [place] [address] Left knee pain, unspecified chronicity Discharge Disposition: Discharge to home or self care 08/17/2024 7:07 AM CDT - 08/17/2024 8:33 AM CDT Emergency [facility] Emergency Department 1 [place] [address] Fidel Drake MD Left leg pain (Primary Dx) Discharge Disposition: Discharge to home or self care 08/16/2024 2:37 PM CDT - 08/16/2024 4:53 PM CDT Emergency [facility] Emergency Department 1 [place] [address] Acute pain of left lower extremity (Primary [...] on file 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 3. Glps-ju-etciewbf tricompartmental knee chondrosis. 4. Large knee joint effusion with synovitis. 5. Mild pes anserinus bursitis. Mild insertional semimembranosus tendinosis. THIS IS AN ELECTRONICALLY VERIFIED FINAL REPORT 09/02/2024 1:29 PM - Electronically signed by Zeeshan Floyd M.D. TH: TH Report ID: [id number] Reading Location: [id number] Procedure Note Zeeshan Floyd MD - 09/02/2024 [...] meniscus body tear versus inner marginfraying. 3. Pscl-hq-lhwzeikj tricompartmental knee chondrosis. 4. Large knee joint effusion with synovitis. 5. Mild pes anserinus bursitis. Mild insertional semimembranosus tendinosis. THIS IS AN ELECTRONICALLY VERIFIED FINAL REPORT 09/02/2024 1:29 PM - Electronically signed by Zeeshan Floyd M.D. TH: TH Report ID: [id number] Reading Location: [id number] us Ramón Gold MD IMG MRI PROCEDURES [...] India Nevarez M.D. TW: TW Report ID: [id number] Reading Location: [id number] Procedure Note India Nevarez MD - 08/17/2024 [...] India Nevarez M.D. TW: TW Report ID: [id number] Reading Location: [place] [address] us Fidel Drake MD [facility] [place] PROCEDURES F inal Result [...] BLOOD ORDERABLES Final R esult [facility] ([place]) 1 [facility] [place] [address] * (ABNORMAL) Comprehensive metabolic panel (08/16/2024 4:26 [...] [facility] LAB BLOOD ORDERABLES Final R esult [facility] 1 [facility] [place] [address] * (ABNORMAL) Differential, auto (08/16/2024 3:42 PM [...] 2017. Basophil pct 1.1 % [facility] ([place]) Comment: Interpretive Data Percent cell count reference ranges are not reported, since discordance with absolute values may lead to misinterpretation of CBC data. Current Interpretive Data was last revised on 2017. Blood 08/16/2024 3:42 PM CDT 08/16/2024 3:46 PM CDT Johnny [facility] BLOOD ORDERABLES Final R esult [facility] ([place]) 1 [facility] [place] [address] * (ABNORMAL) CBC with auto differential (08/16/2024 [...] Final R esult [facility] ([place]) 1 [facility] [place] [address] * (ABNORMAL) aPTT (08/16/2024 3:42 PM CDT) aPTT 20(L) 28 - 38 sec [facility] ([place]) Comment: Interpretive Data Heparin therapeutic range: 66.0 - 100.0 seconds. Range based on correlation with therapeutic heparin activity range of 0.3 - 0.7 Units/mL. Current interpretive data was last revised on 2022. Blood 08/16/2024 3:42 PM CDT 08/16/2024 3:46 PM CDT Johnny [facility] LAB BLOOD ORDERABLES Final R esult Performing Organization Address City/[facility]/ZIP Co de Phone Number [facility] ([place]) 1 [facility] [place] [address] * Protime-INR (08/16/2024 3:42 PM CDT) PT 10.5 9.7 - 13.0 sec [facility] ([place]) INR 0.97 0.90 - 1.20 [facility] ([place]) Comment: Interpretive data Oral anticoagulant therapeutic ranges: Venous thromboembolism prophylaxis or treatment: 2.0-3.0 CARDIOLOGY Standard range: 2.0-3.0 High-intensity range: 2.5-3.5 Refer to indication-specific guidelines for appropriate target ranges for prosthetic heart valve replacement. Current interpretive data was last revised on 2019. Blood 08/16/2024 3:42 PM CDT 08/16/2024 3:46 PM CDT Johnny [facility] LAB BLOOD ORDERABLES Final R esult [facility] ([place]) 1 [facility] [place] [address] * (ABNORMAL) D-dimer, quantitative (08/16/2024 3:42 PM CDT) D-Dimer 763(H) <=499 ng/mL FEU [facility] ([place]) Comment: Interpretive data FDA approved the D-dimer, [...] BLOOD ORDERABLES Final R esult [facility] ([place]) 1 [facility] [place] [address] * XR Knee Left 3 Views (08/16/2024 [...] Geoffrey Hatch M.D. NS: NS Report ID: [id number] Reading Location: [id number] Procedure Note Geoffrey Hatch MD - 08/16/2024 [...] Geoffrey Hatch M.D. NS: NS Report ID: [id number] Reading Location: [id number] Johnny [facility] IMG XR PROCEDURES Final Resu lt * COLONOSCOPY IMAGES (12/23/2015) Anatomical Region Laterality Modality Other Narrative 12/23/2015 Ordered by an unspecified provider. Historical Provider GI PROCEDURE ORDERABLES F inal Result from Last 3 Months or Most Recently Relevant to Health Maintenance Insurance [employer] OPEN ACCESS [facility] CHOICE PLUS WORKERS COMPENSATION GENERIC Member Subscriber Plan / Payer (Ef fective 2024-Present) Name:Justine Dickson Relation to Subscriber:Employee Name:[employer] (Work) Address: [place] [address] Payer ID:[id number] Group ID:Not on file Type:WORKERS COMPENSATION Address: [address] CHOICE PLUS Care Teams Geothermal Plant Manager Relationship Specialty Start Date End Date No, Physician PCP - General 08/16/24
[2024-09-22 19:39] LABS: Anion Gap 8 mmol/L (4-12); Blood Urea Nitrogen 8 mg/dL (7-17); Calcium 9.6 mg/dL (8.4-10.2); Carbon Dioxide 29 mmol/L (22-30); Chloride 98 mmol/L (98-107); Estimated Glomerular Filt Rate > 60; Glucose 255 mg/dL (65-110); Osmolality Calculated 287 mOsm/kg (285-295); Potassium 4.7 mmol/L (3.4-5.0); Sodium 135 mmol/L (137-145)
== END 2024-09-22 15:49 | disposition home or self-care (01) ==
LOC: CHSLAB 15:53
PROVIDERS: PCP Nurse Practitioner Family; Visit Provider Anesthesiology
DX: Z01.818 Encounter for other preprocedural examination (principal); E11.9 Type 2 diabetes mellitus without complications; I10 Essential (primary) hypertension; R94.31 Abnormal electrocardiogram [ECG] [EKG]; I45.10 Unspecified right bundle-branch block
CPT/HCPCS: 36415; 80048; 93005

== ENCOUNTER 2024-10-02 06:37 | Day surgery (SDC) | payer OTHER, SELFPAY ==
[2024-09-22 14:35] VITALS: BMI 33.9
--- NOTE | 2024-09-22 14:55 | PC.NURSE ---
Report to the Outpatient Waiting Room, entrance under the green pavilion located off [facility], at time _0700 on date _10/02/24 . Planned Procedure Time: __09 .? Time changes happen often and if your time is changed the preop area will call you the afternoon before. - You and your visitor will be asked to self-screen and do not enter if you have any COVID symptoms. Please call surgeon if you need to reschedule. - A mask is optional within the hospital at this time. Patients may have clear liquids (water, carbonated beverages, clear teas, apple juice) until 3 hours prior to surgery with a maximum of 20 ounces. - No food from midnight until time of surgery and no smoking, or chewing tobacco (or any form of nicotine). No chewing gum, candy or mints. - Infants may have breast milk until 4 hours before surgery, formula 6 hours prior to surgery. - Children will be allowed to drink immediately following surgery.? If applicable, please bring a bottle or sippy cup to assist with drinking. Juice, water, soda, and popsicles are readily available.? For infants on formula, please bring formula the day of surgery.? Pacifiers are allowed. Take only the following medications with a SIP of water on the morning of surgery: __Daily Inhaler, Vraylar and PRN Inhaler DO NOT STOP ANY OF YOUR OTHER PRESCRIPTION MEDICATIONS PRIOR TO SURGERY EXCEPT THE FOLLOWING Hold all vitamins and supplements for 3 days per anesthesiologist. Medications to discontinue per physician ___N/A Date to take last dose___N/A Please no make-up, nail scottish, hairspray, perfume, deodorant, or body powder the day of surgery.? No jewelry (including any body piercings) or valuables the day of surgery, leave them at home.? Please take a shower or bath the night before, or the morning of, surgery with an antibacterial soap.? Wear comfortable, loose fitting clothing.? Children are encouraged to wear pajamas. - Jewelry must be removed prior to entering the operating room.? Rings and piercings that are not removed may be cut off. - The hospital will not accept responsibility for valuables.? - Please leave all valuables, including medications, at home the day of surgery. If you are going home after surgery, a licensed local bulk driver must drive you home.? - NO public transportation without another adult if you receive anesthesia. - We recommend that an adult stay with you for 24 hours following discharge. - We also recommend that you do not drive, make important decision, drink alcoholic beverages, or take any drugs that were not prescribed by your health care provider for at least 24 hours after your discharge time. For Pediatric surgeries, we recommend two adults accompany the child home. Follow any additional instructions given to you from your surgeon. Telephone instructions given to _Donna and asked if any additional questions and then verbalized understanding. Patient advised to call surgeon office or pre surgery nurse liaison [phone] if any additional questions.
[2024-10-01] MEDS: ALBUTEROL SULFATE NEB 2.5 MG/3 ML INH INHALATION (14:20)
[2024-10-02] VITALS (22 sets, daily range): BP systolic 115–148; BP diastolic 59–78; PULSE 73–89; RESP 12–18; TEMP 36.7–37.2; O2SAT 85–100
--- OUTSIDE RECORDS SUMMARY | 2024-10-02 06:39 | XMS_ITS | Encounter Summary ---
Author Organization [facility] Address [address] [place] [address] Care Team Providers Care Wet Wash Assembler Name Role Phone None, Provider Primary Care Provider Unavaila ble Justine Mei Primary Care Provider [phone] Encounter Details Date Type Department Care Team (Late st Contact Info) Description 01/25/2018 Abstract [facility] Neuroscience [facility] [address] [place] [phone] Sagar Reed MD [address] [place] [address] Social History Tobacco Use Types Packs/Day Years [...] on filedocumented in this encounter Care Teams Wet Wash Assembler Relationship Specialty Start Date End Date None, Provider, PCP - General 12/17/17 02/12/18 Justine Mei PA [address] [place] [address] PCP - General 02/13/18 documented as of this encounter
--- OUTSIDE RECORDS SUMMARY | 2024-10-02 06:39 | XMS_ITS | Clinical Summary ---
Author Organization [facility] Address 1 [place] [address] Care Team Providers Care Youth Program Director Name Role Phone No, Physician Primary Care Provider [phone] Allergies No known active allergies Medications azithromycin [...] - 09/02/2024 11:59 PM CDT Hospital Encounter [facility] 1 [place] [address] Left knee pain, unspecified chronicity Discharge Disposition: Discharge to home or self care 08/17/2024 7:07 AM CDT - 08/17/2024 8:33 AM CDT Emergency [facility] Emergency Department 1 [place] [address] Fidel Drake MD Left leg pain (Primary Dx) Discharge Disposition: Discharge to home or self care 08/16/2024 2:37 PM CDT - 08/16/2024 4:53 PM CDT Emergency [facility] Emergency Department 1 [place] [address] Acute pain of left lower extremity (Primary [...] on file 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 3. Dxcp-ip-fpafezul tricompartmental knee chondrosis. 4. Large knee joint effusion with synovitis. 5. Mild pes anserinus bursitis. Mild insertional semimembranosus tendinosis. THIS IS AN ELECTRONICALLY VERIFIED FINAL REPORT 09/02/2024 1:29 PM - Electronically signed by Zeeshan Floyd M.D. TH: TH Report ID: [id number] Reading Location: [id number] Procedure Note Zeeshan Floyd MD - 09/02/2024 [...] meniscus body tear versus inner marginfraying. 3. Pyux-pl-hrayhzoi tricompartmental knee chondrosis. 4. Large knee joint effusion with synovitis. 5. Mild pes anserinus bursitis. Mild insertional semimembranosus tendinosis. THIS IS AN ELECTRONICALLY VERIFIED FINAL REPORT 09/02/2024 1:29 PM - Electronically signed by Zeeshan Floyd M.D. TH: Report ID: [id number] Reading Location: [id number] us Ramón Gold MD IMG MRI PROCEDURES [...] India Nevarez M.D. TW: TW Report ID: [id number] Reading Location: [id number] Procedure Note India Nevarez MD - 08/17/2024 [...] India Nevarez M.D. TW: TW Report ID: [id number] Reading Location: [id number] us Fidel Drake MD [facility] US PROCEDURES F inal Result * eGFR [...] [facility] LAB BLOOD ORDERABLES Final R esult [facility] ([place]) 1 [facility] Department [place] [address] * (ABNORMAL) Comprehensive metabolic panel (08/16/2024 4:26 PM CDT) Sodium 136 135 - 145 mmol/L Potassium, pl 3.8 3.3 - 4.9 mmol/L [facility] Chloride 96(L) 97 - 110 mmol/L [facility] CO2 29 22 - 32 mmol/L [facility] ([place]) Anion gap 11 2 - 15 mmol/L [facility] BUN 5(L) 6 - 25 mg/dL [facility] ([place]) Creatinine 0.60 0.60 - 1.10 mg/dL [facility] ([place]) Glucose 94 70 - 199 mg/dL [facility] ([place]) Comment: Interpretive Data Fasting glucose [...] Final R esult [facility] ([place]) 1 [facility] [place] [address] * (ABNORMAL) Differential, auto (08/16/2024 3:42 PM [...] BLOOD ORDERABLES Final R esult [facility] ([place]) 1 [facility] [place] [address] * (ABNORMAL) CBC with auto differential (08/16/2024 [...] ORDERABLES Final R esult Performing Organization Address City/[facility] Co de Phone Number [facility] ([place]) 1 [place] [address] * (ABNORMAL) aPTT (08/16/2024 3:42 PM CDT) [...] ORDERABLES Final R esult Performing Organization Address City/[facility]/ZIP Co de Phone Number [facility] ([place]) 1 [facility] [place] [address] * Protime-INR (08/16/2024 3:42 PM CDT) PT 10.5 9.7 - 13.0 sec [facility] ([place]) INR 0.97 0.90 - 1.20 [facility] ([place]) Comment: Interpretive data Oral anticoagulant therapeutic ranges: Venous thromboembolism prophylaxis or treatment: 2.0-3.0 CARDIOLOGY Standard range: 2.0-3.0 High-intensity range: 2.5-3.5 Refer to indication-specific guidelines for appropriate target ranges for prosthetic heart valve replacement. Current interpretive data was last revised on 2019. Blood 08/16/2024 3:42 PM CDT 08/16/2024 3:46 PM CDT Johnny [facility] BLOOD ORDERABLES Final R esult [facility] ([place]) 1 [facility] Department [place] [address] * (ABNORMAL) D-dimer, quantitative (08/16/2024 3:42 PM CDT) D-Dimer 763(H) <=499 ng/mL FEU [facility] ([place]) Comment: Interpretive data FDA approved the D-dimer, [...] BLOOD ORDERABLES Final R esult [facility] [place] [facility] [place] [address] * XR Knee Left 3 Views (08/16/2024 [...] Geoffrey Hatch M.D. NS: NS Report ID: [id number] Reading Location: [id number] Procedure Note Geoffrey Hatch MD - 08/16/2024 [...] Geoffrey Hatch M.D. NS: NS Report ID: [id number] Reading Location: [id number] Johnny [facility] IMG XR PROCEDURES Final Resu lt * COLONOSCOPY IMAGES (12/23/2015) Anatomical Region Laterality Modality Other Narrative 12/23/2015 Ordered by an unspecified provider. Historical Provider GI PROCEDURE ORDERABLES F inal Result from Last 3 Months or Most Recently Relevant to Health Maintenance Insurance [facility] CHOICE PLUS WORKERS COMPENSATION GENERIC Member Subscriber Plan / Payer (Ef fective 2024-Present) Name:Justine Dickson Relation to Subscriber:Employee Name:[employer] (Work) Address: [place] [address] Payer ID:[id number] Group ID:Not on file Type:WORKERS COMPENSATION Address: [address] CHOICE PLUS Care Teams Youth Program Director Relationship Specialty Start Date End Date No, Physician PCP - General 08/16/24
--- OUTSIDE RECORDS SUMMARY | 2024-10-02 06:39 | XMS_ITS | Clinical Summary ---
Author Organization [facility] Address [address] [place] [address] Care Team Providers Care Cnc Wood Lathe Operator Name Role Phone Justine Mei Primary Care Provider [phone] Allergies Active Allergy Reactions Criticality Noted Date [...] Comments Blood Pressure 140/66 02/13/2018 2:35 PM GRAY TENDER Pulse 93 02/13/2018 2:35 PM GRAY TENDER Temperature - - Respiratory Rate - - [...] patient's age to complete this topic Insurance Sighter Care Teams Cnc Wood Lathe Operator Relationship Specialty Start Date End Date Justine Mei PA [address] [place] [address] PCP - General 02/13/18
--- OUTSIDE RECORDS SUMMARY | 2024-10-02 06:39 | XMS_ITS | Encounter Summary ---
Author Organization [facility] Address [address] [place] [address] Care Team Providers Care Tube Molder Fiberglass Name Role Phone None, Provider Primary Care Provider Unavaila ble Justine Mei Primary Care Provider [phone] Encounter Details Date Type Department Care Team (Latest Contact Info) Description 10/24/2017 Abstract [facility] Medical Group , Generic Conversion, Social [...] on filedocumented in this encounter Care Teams Tube Molder Fiberglass Relationship Specialty Start Date End Date None, Provider, PCP - General 12/17/17 02/12/18 Justine Mei PA [address] [place] [address] PCP - General 02/13/18 documented as of this encounter
--- OUTSIDE RECORDS SUMMARY | 2024-10-02 06:39 | XMS_ITS | Clinical Summary ---
Author Organization [facility] Address [address] [facility] [place] [address] Phone Care Team Providers Care Edge Gluer Name Role Phone Claudia Gonzalez APRN, TWISTER OPERATOR Unavailable [phone] Allergies No known active allergies Medications armodafinil (NUVIGIL) 150 MG Tablet armodafinil 150 mg tablet Active ergocalciferol (VITAMIN D) 90423 UNIT Capsule TAKE 1 CAPSULE BY MOUTH [...] Most Recently Relevant to Health Maintenance Insurance [employer] Care Teams Edge Gluer Relationship Specialty Start Date End Date Claudia Gonzalez APRN, CNP [address] [place] [address] [place] [address] Used Car Make Ready Worker Family Medicine 05/05/19
--- NOTE | 2024-10-02 07:23 | WPDHPUPDATE1 ---
History and Physical Update Update Date/Time: 10/02/24 07:23 History and Physical has been reviewed, including an updated exam of the patient. There are NO changes in the patient's condition. Risks, benefits, and alternatives have been discussed and questions answered. Patient agrees to proceed with procedure.
[2024-10-02] MEDS: ACETAMINOPHEN 500 MG TABLET 1000 MG PO (07:40)
[2024-10-02] MEDS: CELECOXIB 200 MG CAPSULE PO (07:40)
--- NOTE | 2024-10-02 07:53 | SUR.PREOP ---
PT AMBULATING ON CRUTCHES UPON ARRIVAL
--- NOTE | 2024-10-02 08:20 | P.PNAN_ITS ---
Anes - Initial Pre Proc Eval Procedure: Operation Date: 10/02/24 09:00 Proposed Procedures p Left Knee Arthroscopy - Jagdish Garcia MD Date/Time: 10/02/24 08:20 Surgeon: Jagdish Garcia MD Pre Op Diagnosis: left knee medial and lateral meniscal tear Patient Data Age: 58 Gender: F Height: 1.65 m Weight: 90.9 kg Last Vital Signs Temp 36.7 C 10/02/24 07:46 Pulse 85 10/02/24 07:46 Resp 16 10/02/24 07:46 BP 124/71 10/02/24 07:46 Pulse Ox 96 10/02/24 07:46 O2 Del Method Room Air 10/02/24 07:46 Allergies Allergy/AdvReac Type Severity Reaction Status Date / Time No Known Allergies Allergy Verified 10/02/24 07:41 Home Medications ?Medication ?Instructions ?Recorded ?Confirmed ?Type metformin 500 mg tablet 500 mg PO BID 05/11/20 09/22/24 History albuterol sulfate 90 mcg/actuation 2 puff inhalation Q4H PRN 06/11/21 09/22/24 Rx aerosol inhaler shortness of breath or wheezing #8.5 grams armodafinil 250 mg tablet 250 mg PO DAILY 10/18/21 09/22/24 History atorvastatin 20 mg tablet 20 mg PO DAILY 01/25/24 09/22/24 History fluticasone furoate 100 1 inh inhalation DAILY 01/25/24 09/22/24 History mcg-vilanterol 25 mcg/dose inhalation powder crutches #1 ea 08/19/24 09/15/24 Rx cariprazine 3 mg capsule (Vraylar) 3 mg PO DAILY 09/22/24 09/22/24 History glipizide 5 mg tablet 5 mg PO BID 09/22/24 09/22/24 History losartan 50 mg tablet 50 mg PO DAILY 09/22/24 09/22/24 History chlorhexidine gluconate 4 % 1 applic topical ONCE #237 mL 09/25/24 Rx topical liquid (Hibiclens) hydrocodone 5 mg-acetaminophen 325 1 tablet PO Q12H PRN pain #20 tabs 10/02/24 Rx mg tablet Laboratory Tests 10/02/24 07:42 POC Capillary Glucose 153 H mg/dl (65-105) Patient hx anesthesia problems: none Family hx anesthesia problems: none Results Review: All pre-operative results and documents have been reviewed as part of the pre- operative evaluation. 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 Informed Consent: The patient's anesthetic plan and its attendant risks and benefits were discussed with the patient/family/POA. Questions were solicited and answers provided to the satisfaction of the patient/family/POA.
[2024-10-02] MEDS: ceFAZolin 2 GM in SODIUM CHLORIDE 0.9% IV 50 ML 100 ML IVPB (08:31)
[2024-10-02] MEDS: BUPivacaine HCL 0.5% 10 ML AMP 30 ML INFILTRATE (08:50)
[2024-10-02] MEDS: methylPREDNISolone ACETATE 80 MG/ML VIAL IM (09:07)
[2024-10-02] MEDS: LACTATED RINGERS 1,000 ML 30 ML IV CONT (09:36)
--- NOTE | 2024-10-02 09:38 | W.PM.PROC2 ---
Procedure Note - Detailed Date of Procedure 10/02/24 Pre-op Diagnosis left knee medial meniscal tear Post-op Diagnosis Same Procedure Performed LEFT KNEE SCOPE Surgeon Jagdish Garcia MD Anesthesia General Description of Procedure PATIENT WAS TAKEN TO THE OR. LEFT LEG WAS PREPPED AND DRAPED STERILE. TROCARS WERE PLACED IN THE USUAL FASHION. CAMERA WAS INTRODUCED. THERE WAS SEVERE CHONDROMALACIA TO THE PATELLA FEMORAL JOINT. THERE WAS A LOT OF SYNOVITIS IN ALL COMPARTMENTS. THE MEDIAL COMPARTMENT SHOWED GRADE 2 CHONDROMALACIA TO THE MEDIAL FEMORAL CONDYLE AND PLATEAU. THERE WAS COMPLEX MEDIAL MENISCUS TEAR TO THE MENISCUS ROOT. THE TEAR WAS RESECTED TO A SMOOTH BASE. THE ACL WAS INTACT. THE LATERAL MENISCUS WAS NOT TORN. THE LATERAL COMPARTMENT HAD MINIMAL CHONDROMALACIA. A SYNOVECTOMY WAS PREFORMED. THE PATELLO FEMORAL JOINT UNDERWENT CHONDROPLASTY OVER THE PATELLA AND TROCHLEA. THERE WAS GRADE 3 CHONDROMALACIA IN MOST OF THE TROCHLEA AND PATELLA. SYNOVECTOMY WAS PREFORMED IN THE SUPERIOR MEDIAL COMPARTMENT. THE WOUNDS WERE APPROXIMATED WITH 4.0 NYLON. STERILE DRESSING WAS APPLIED. PATIENT WAS EXTUBATED. Estimated Blood Loss 5 Complications No immediate complications Condition Stable Disposition PACU
[2024-10-02] MEDS: fentaNYL CITRATE INJ (*CRX) 100 MCG/2 ML VIAL 25 MCG IV PUSH ×4 (10:10→10:25)
[2024-10-02] MEDS: oxyCODONE HCL (*CRX) 5 MG TAB IR PO (10:45)
== END 2024-10-02 16:07 | disposition home or self-care (01) ==
PROVIDERS: PCP Nurse Practitioner Family; Visit Provider Orthopaedic Surgery
PROC: (CPT 29870; principal; 2024-10-02 09:00)
DX: S83.8X2A Sprain of other specified parts of left knee, initial encounter (principal); S83.232A Complex tear of medial meniscus, current injury, left knee, initial encounter; M22.42 Chondromalacia patellae, left knee; M65.862 Other synovitis and tenosynovitis, left lower leg; X50.1XXA Overexertion from prolonged static or awkward postures, initial encounter; Y93.01 Activity, walking, marching and hiking; E11.9 Type 2 diabetes mellitus without complications; J45.909 Unspecified asthma, uncomplicated; E66.9 Obesity, unspecified; Z68.33 Body mass index [BMI] 33.0-33.9, adult; Z79.84 Long term (current) use of oral hypoglycemic drugs; Z79.51 Long term (current) use of inhaled steroids; Z79.52 Long term (current) use of systemic steroids; Z79.891 Long term (current) use of opiate analgesic; Z98.890 Other specified postprocedural states; Z98.51 Tubal ligation status
CPT/HCPCS: 29881; 29876; 82948; 94640; J0690; A9270; J1010; J1100; J2250; J2270; J2405; J2704; J3010; J7120

== ENCOUNTER 2025-01-15 09:07 | Emergency (ER) | payer OTHER, SELFPAY ==
--- OUTSIDE RECORDS SUMMARY | 2025-01-15 09:09 | XMS_ITS | Clinical Summary ---
Author Organization [facility] Address [address] [place] [address] Care Team Providers Care Blueprint Reader Name Role Phone Justine Mei Primary Care Provider [phone] Allergies Active Allergy Reactions Criticality Noted Date [...] Comments Blood Pressure 140/66 02/13/2018 2:35 PM BATCH MIXING TRUCK DRIVER Pulse 93 02/13/2018 2:35 PM BATCH MIXING TRUCK DRIVER Temperature - - Respiratory Rate - - [...] of 2) 11/23/2013 COVID-19 Vaccine ( - 2024-2 6 season) 2024 Influenza Adult (#1) 2024 RSV Immunization or 60+ Years (1 - 1-dose 75+ series) 11/23/2038 Hepatitis A Vaccines Aged Out No long er eligible based on patient's age to complete this topic Meningococcal B Vaccine Aged Out No l onger eligible based on patient's age to complete this topic Meningococcal Vaccine Aged Out No luis romulo eligible based on patient's age to complete this topic RSV Immunizations Under 20 Months Aged Out No longer eligible based on patient's age to complete this topic Insurance [employer] Care Teams Blueprint Reader Relationship Specialty Start Date End Date Justine Mei PA [address] [place] [address] PCP - General 02/13/18
--- OUTSIDE RECORDS SUMMARY | 2025-01-15 09:09 | XMS_ITS | Clinical Summary ---
Author Organization [facility] Address [address] [place] [address] Care Team Providers Care Hospice Clinical Manager Name Role Phone No, Physician Primary Care Provider [phone] Allergies No known active allergies Medications azithromycin (Zithromax Z-Mat) 250 mg tablet Take 1 tablet (250 mg total) by mouth daily Take first 2 tablets together, then 1 every day until finished. 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 us Historical Provider GI PROCEDURE ORDERABLES F inal Result from Last 3 Months or Most Recently Relevant to Health Maintenance Insurance [employer] OPEN [facility]ESS [facility] CHOICE PLUS WORKERS COMPENSATION GENERIC Member Subscriber Plan / Payer (Ef fective 2024-Present) Name:Justine Dickson Relation to Subscriber:Employee Name:[employer] (Work) Address: [address] [place] [address] Payer ID:[id number] Group ID:Not on file Type:WORKERS COMPENSATION Address: [address] CHOICE PLUS Care Teams Hospice Clinical Manager Relationship Specialty Start Date End Date No, Physician PCP - General 08/16/24
--- OUTSIDE RECORDS SUMMARY | 2025-01-15 09:09 | XMS_ITS | Encounter Summary ---
Author Organization [facility] Address [address] [place] [address] Care Team Providers Care Upscale Security Officer Name Role Phone None, Provider Primary Care Provider Unavaila ble Justine Mei Primary Care Provider [phone] Encounter Details Date Type Department Care Team (Latest Contact Info) Description 10/24/2017 Abstract [facility] Medical Group , Generic Conversion, Social History [...] on filedocumented in this encounter Care Teams Upscale Security Officer Relationship Specialty Start Date End Date None, Provider, PCP - General 12/17/17 02/12/18 Justine Mei PA [address] [place] [address] PCP - General 02/13/18 documented as of this encounter
--- OUTSIDE RECORDS SUMMARY | 2025-01-15 09:09 | XMS_ITS | Clinical Summary ---
Author Organization [facility] Address [address] [facility], [place] [address] Phone Care Team Providers Care End User Consultant Name Role Phone Claudia Gonzalez APRN, EVENT MARKETING SPECIALIST Unavailable [phone] Allergies No known active allergies Medications armodafinil (NUVIGIL) 150 MG Tablet armodafinil 150 mg tablet Active ergocalciferol (VITAMIN D) 05878 UNIT Capsule TAKE 1 CAPSULE BY MOUTH [...] Screening 11/23/2008 Immunochemical Fecal Occult Blood 11/23/2008 Respiratory Syncytial Virus (RSV) Immunization (Adult) (1 - Risk 50-74 years 1-dose series) 11/23/2013 Zoster Immunization (1 of 2) 11/23/2013 Diabetes: Hemoglobin A1c 09/22/2019 03/24/2019 Diabetes: Nephropathy Screening 03/24/2020 0 Influenza Immunization (#1) 2024 SARS-COV-2 Immunization ( season) 2024 Hepatitis B Immunization Aged Out No [...] Most Recently Relevant to Health Maintenance Insurance [employer] Care Teams End User Consultant Relationship Specialty Start Date End Date Claudia Gonzalez APRN, CNP [address] [place] [address] [place] [address] Histology Manager Family Medicine 05/05/19
--- OUTSIDE RECORDS SUMMARY | 2025-01-15 09:09 | XMS_ITS | Encounter Summary ---
Author Organization [facility] Address [address] [place] [address] Care Team Providers Care Warehouse Selector Name Role Phone None, Provider Primary Care Provider Unavaila ble Justine Mei Primary Care Provider [phone] Encounter Details Date Type Department Care Team (Late st Contact Info) Description 01/25/2018 Abstract [facility] [address] [place] [phone] Sagar Reed MD [address] [place] [id number] Social History Tobacco Use Types Packs/Day Years [...] on filedocumented in this encounter Care Teams Warehouse Selector Relationship Specialty Start Date End Date None, ProviderMD PCP - General 12/17/17 02/12/18 Justine Mei PA [address] [place] [address] PCP - General 02/13/18 documented as of this encounter
[2025-01-15 09:16] VITALS: BP 143/69; PULSE 100; RESP 16; TEMP 36.5; O2SAT 100
[2025-01-15 09:52] LABS: EDCOVIDSCREEN Negative (Negative); EDINFLUASCREEN Negative (Negative); EDINFLUBSCREEN Negative (Negative); EDSTREPNEGPOS1 Negative (Negative)
--- NOTE | 2025-01-15 10:00 | ED.URI ---
HPI - URI/Sore Throat General Chief Complaint: Upper Respiratory Infection Stated Complaint: throat/ears/chest congestion Time Seen by Provider: 01/15/25 10:00 Source: patient Mode of arrival: ambulatory Limitations: no limitations History of Present Illness HPI Narrative: 59 yo F presents with c/o sore throat, cough, congestion, bilateral ear pain, 2 to 3 canker sores to mouth. No CP/SOB. No N,V,D. All systems reviewed and negative except as noted above. Related Data Home Medications ?Medication ?Instructions ?Recorded ?Confirmed ?Last Taken ?Type armodafinil 250 mg tablet 250 mg PO DAILY 10/18/21 10/13/24 Unknown History fluticasone furoate 100 1 inh inhalation DAILY 01/25/24 10/13/24 Unknown History mcg-vilanterol 25 mcg/dose inhalation powder glipizide 5 mg tablet 5 mg PO BID 09/22/24 10/13/24 Unknown History losartan 50 mg tablet 50 mg PO DAILY 09/22/24 10/13/24 Unknown History desvenlafaxine succinate 50 mg mg PO 01/15/25 Unknown History tablet,extended release 24 hr fluticasone 250 mcg-salmeterol 50 inhalation 01/15/25 Unknown History mcg/dose blistr powdr for inhalation metformin 1,000 mg tablet mg 01/15/25 Unknown History topiramate 50 mg tablet mg 01/15/25 Unknown History Allergies Allergy/AdvReac Type Severity Reaction Status Date / Time No Known Allergies Allergy Verified 01/15/25 09:42 [facility] Past Medical History Medical History Diabetes mellitus Bronchitis Asthma with acute exacerbation Surgical History Surgical History Hx of tonsillectomy History of adenoidectomy History of tubal ligation Family History Family History Mother Family history non-contributory Social History Social History Smoking status: Never smoker Alcohol intake: never Substance use: never Living arrangements: with family Occupation/Education: occupation 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 There is no relevant family history pertinent to the presenting complaint. Exam Narrative: GENERAL: This is a well-nourished, well-developed patient, in no apparent distress. HEAD: normocephalic, atraumatic. EYES: PERRL. Sclera clear/white. Vision is grossly intact. EARS: External ears normal, auditory canals clear and without drainage, TMs normal without perforation. Hearing grossly intact. NOSE: External nose normal with congestion, clear nasal drainage, erythema to bilateral nares THROAT: Mucous membranes moist, posterior pharynx clear. ulcer to underside of tongue, posterior pharynx, R side tongue NECK: Neck supple, non-tender without lymphadenopathy, masses or thyromegaly. CARDIOVASCULAR: Regular rate and rhythm without murmurs, gallops, or rubs. RESPIRATORY: Clear to auscultation. Breath sounds equal bilaterally. No wheezes, rales, or rhonchi. SKIN: warm, Dry, intact with no suspicious lesions or rash, good texture and turgor. NEURO: awake, alert, and oriented to person, place and time. There were no obvious focal neurologic abnormalities. EXTREMITIES: No joint tenderness, effusion, or edema noted. Course Course Level of Care: Express Care Visit Vital Signs Vital signs: Vital Signs Temperature 36.5 C 01/15/25 09:16 Pulse Rate 100 01/15/25 09:16 Respiratory Rate 16 01/15/25 09:16 Blood Pressure 143/69 H 01/15/25 09:16 Pulse Oximetry 100 01/15/25 09:16 Oxygen Delivery Room Air 01/15/25 09:16 Temperature 36.5 C 01/15/25 09:16 Pulse Rate 100 01/15/25 09:16 Respiratory Rate 16 01/15/25 09:16 Blood Pressure 143/69 H 01/15/25 09:16 Pulse Oximetry 100 01/15/25 09:16 Oxygen Delivery Room Air 01/15/25 09:16 reviewed MDM - URI/Sore Throat MDM Narrative Medical decision making narrative: negative COVID, flu and influenza testing. Will treat canker sores with chlorhexidine, prednisone. Patient alert, nontoxic. Differential Diagnosis Differential diagnosis: Likely upper respiratory infection, sinusitis, viral infection, influenza and pharyngitis Lab Data Labs: Lab Results 01/15/25 Range/Units 09:49 POC Influenza A Ag Negative (Negative) POC Influenza B Ag Negative (Negative) POC SARS CoV-2 Ag Negative (Negative) POC Grp A Strep Screen Negative (Negative) Discharge Plan Discharge Clinical Impression: Viral upper respiratory tract infection with cough, Canker sore Patient Disposition: Home Condition: Stable Instructions: Upper Respiratory Infection (ED) Additional Instructions: Take medications as prescribed. Take Tylenol or ibuprofen every 6-8 hours as needed for pain. Avoid foods that irritate canker sores to mouth. Drink at least 64 oz of water a day. See your doctor if not improving. Patient Language: Turkish Prescriptions: New benzonatate 200 mg capsule 200 mg PO TID PRN (Reason: cough) Qty: 20 0RF prednisone 20 mg tablet 40 mg PO DAILY 5 Days Qty: 10 0RF chlorhexidine gluconate 0.12 % mouthwash 15 ml buccal BID 7 Days Qty: 120 0RF No Action (DME) crutches See Rx Instructions .Route .MEDSUPPLY Qty: 1 0RF Rx Instructions: As directed albuterol sulfate 90 mcg/actuation HFA aerosol inhaler 2 puff inhalation Q4H PRN (Reason: shortness of breath or wheezing) Qty: 8.5 0RF fluticasone furoate-vilanterol 100-25 mcg/dose blister with device 1 inh INHALATION DAILY fluticasone propion-salmeterol 250-50 mcg/dose blister with device INHALATION metformin 1,000 mg tablet topiramate 50 mg tablet desvenlafaxine succinate 50 mg tablet extended release 24 hr PO armodafinil 250 mg tablet 250 mg PO DAILY glipizide 5 mg tablet 5 mg PO BID losartan 50 mg tablet 50 mg PO DAILY Follow-up/Referrals: PHYSICIAN NOT ON STAFF,NONSTAFF [Primary Care Provider] Time of Disposition: 10:08
== END 2025-01-15 10:19 | disposition home or self-care (01) ==
PROVIDERS: Emergency Provider Nurse Practitioner Family
DX: J06.9 Acute upper respiratory infection, unspecified (principal); R05.9 Cough, unspecified; K12.0 Recurrent oral aphthae; Z20.822 Contact with and (suspected) exposure to COVID-19; E11.9 Type 2 diabetes mellitus without complications; Z79.84 Long term (current) use of oral hypoglycemic drugs; J45.909 Unspecified asthma, uncomplicated
CPT/HCPCS: 87081; 87426; 87804; 87880; 99213; G0463

== ENCOUNTER 2025-02-07 10:15 | Emergency (ER) | payer OTHER, SELFPAY ==
--- OUTSIDE RECORDS SUMMARY | 2025-02-07 10:18 | XMS_ITS | Data Portability ---
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 Plan of Treatment Reminders Order Date Submit Date Provider Last Modified By Organization Details Last Modified Time Details Appointments None record ed. Lab SARS CoV 2 RNA (COVID -19), QL, machine stoppage frequency checker-PC R, respir atory specim - [place] @ noon 10/20 020 [facility] (Lab), [address] [place], [address], 0 09:55:30 CMP, serum or plasma 2019 020 [facility], [address] [facility] [address], [address], 0 13:07:51 CBC 2019 020 VANESSA [facility], 102 [facility], [facility], [place], [address], 0 13:07:52 TSH, serum or plasma 2019 020 VANESSA [facility], [address] [facility], [facility], [place], [address], 0 13:07:53 lipid panel, serum 2019 020 VANESSA [facility], [address] [facility], [address], [place], [address], 0 13:07:53 HbA1c (hemog lobin A1c), blood 2019 020 VANESSA In-Office Order, Internal Use Only DO Not Attach Compendium DO Not Attach Compendium, Do Not Delete/merge, [id number] 0 11:20:12 pap, IG + HPV 2019 020 [id number] [facility], [address] [facility], [address], [place], [address], 1 03:32:30 Referral urogyn ecolog ist referr al 2019 020 VANESSA Not available 0 13:38:40 endocr inolog y referr al 2019 020 [facility] Tod Barker, 2 [facility] [address], [place], [address], 0 08:43:26 Procedures None record ed. Surgeries None record ed. Imaging XR, chest, 2 view 2020 021 [facility] Mamie Alvarez (Radiology), 1 [facility] [place], [address], 1 14:26:59 exerci se stress test 2020 021 [facility] Mamie [facility] (Radiology), 1 [facility] [place], [address], 1 14:06:17 MAMMO, screen ing, digita l, bilate ral 2019 020 deldredsmit Mamie [facility] (Radiology), 1 [facility] [place], [address], 0 11:25:54 Medication Orders ciprof loxaci n 0.3 % eye drops 2020 021 INTERFACE [facility], [address] [place] [address], [address], 1 16:16:33 Advair Diskus 250 mcg-50 mcg/do se powder for inhala tion 2020 021 INTERFACE [facility], [address] [place] [address], [address], 1 16:16:23 albute rol sulfat e HFA 90 mcg/ac tuatio n aeroso l inhale r 2019 020 INTERFACE [facility], [address] [place], [address], 0 16:01:42 amoxic illin 875 mg tablet 2019 INTERFACE [facility], [address] [place], [address], 0 16:01:51 ceftri axone 1 gram soluti on for inject ion 2019 dturnerma Not available 0 15:52:44 Patient TargetsNo targets recorded. Patient Instructions Encounter Date Encounter Id Patient Instructions Last Modified By Organization Details Last Modified Time 05/01/2019 [id number] mammogram: about this test deledsmitsuzan Not available 05/01/2019 11:25:54 bladder training: care instructions deldredsmith Not available 05/01/2019 10:54:24 kegel exercises: care instructions deldredsmith Not available 05/01/2019 10:54:24 Stress Incontinence: Care Instructions deldredsmith Not available 05/01/2019 10:54:24 05/27/2019 [id number] learning about type 2 diabetes jnanney Not available 05/27/2019 10:51:28 type 2 diabetes: care instructions jnanney Not available 05/27/2019 10:51:28 10/20/2019 [id number] Reviewed the following recommendations: -Stay home and [...] Reason for Referral Urogynecologist Referral for Female urinary stress incontinence Referring Physician: Claudia Gonzalez, Collection Technician, Encounter Date: 05/01/2019 Endocrinology Referral for T estosterone level below reference range Referring Physician: Claudia Gonzalez, Collection Technician, Encounter Date: 05/01/2019 Results Created Date Observation Date Name Description Value Unit Range Abnormal Flag Note LastModifiedBy Organization Detail LastModifiedTime 05/01/1905/05/2019 pap, IG + HPV diagnosis: Jesus ARCOS FOR INTRA EPITH KEVIN [place] OR RUBEN LOPES . Not Available [facility] ([facility]) [address] [facility] [address], [place], [address], 05/05/2019 11:08:59 05/01/1905/05/2019 pap, IG + HPV specimen adequacy: Jesus haq Satis facto ry for evalu ation . Endoc ervic al and/o r squam ous metap lasti c cells (endo cervi arin compo nent) are prese nt. Not Available [facility] ([facility]) [address] [facility] [address], [place], [address], 05/05/2019 11:08:59 05/01/19 20 05/05/2019 pap, IG + HPV clinician provided ICD10: Jesus haq Z01.4 19 Not Available [facility] ([facility]) [address] [facility] [address], [place], [address], 05/05/2019 11:08:59 05/01/19 20 05/05/2019 pap, IG + HPV performed by: Jesus Whittaker , Cytot echno logis t (ASCP ) Not Available [facility] ([facility]) [address] [facility] [address], [place], [address], 05/05/2019 11:08:59 05/01/19 20 05/05/2019 pap, IG + HPV . . Not Available [facility] ([facility]) [address] [facility] [address], [place], [address], 05/05/2019 11:08:59 05/01/19 20 05/05/2019 pap, IG [...] ts do occur . Not Available [facility] ([facility]) [address] [facility] [address], [place], [address], 05/05/2019 11:08:59 05/01/19 20 05/05/2019 pap, IG + HPV test methodology: Commen t This liqui d based ThinP rep(R ) pap test was scree stoney with the use of an image guide alejandra lacy. Not Available [facility] ([facility]) [address] [facility] [address], [place], [address], 05/05/2019 11:08:59 05/01/1905/05/2019 pap, IG + HPV HPV aptima Negati ve negati ve This nucle ic acid ampli ficat ion test detec ts fourt een high- risk HPV types (16,1 8,31, 33,35 ,39,4 5,51, 52,56 ,58,5 9,66, 68) witho ut diffe renti ation . Not Available [facility] ([facility]) [address] [facility] [address], [place], [address], 05/05/2019 11:08:59 05/27/19 20 05/28/2019 CMP, serum or plasm a glucose 136 mg/dL 65-99 above high normal Not Available [facility] ([facility]) [address] [place], [address], 05/29/2019 13:07:51 05/27/19 20 05/28/2019 CMP, serum or plasm a BUN 10 mg/dL 6-24 Not Available [facility] ([facility]) [address] [place], [address], 05/29/2019 13:07:51 05/27/19 20 05/28/2019 CMP, serum or plasm a creatinine 0.71 mg/dL 0.57-1 .00 Not Available [facility] ([facility]) [address] [place], [address], 05/29/2019 13:07:51 05/27/19 20 05/28/2019 CMP, serum or plasm a eGFR if nonafricn AM 96 mL/mi n/1.7 3 >59 Not Available [facility] ([facility]) [address] [place], [address], 05/29/2019 13:07:51 05/27/19 20 05/28/2019 CMP, serum or plasm a eGFR if africn AM 111 mL/mi n/1.7 3 >59 Not Available [facility] ([facility]) [address] [place], [address], 05/29/2019 13:07:51 05/27/19 20 05/28/2019 CMP, serum or plasm a BUN/creatini ne ratio 14 9-23 Not Available [facility] ([facility]) [address] [place], [address], 05/29/2019 13:07:51 05/27/19 20 05/28/2019 CMP, serum or plasm a sodium 143 mmol/ L 134-14 4 Not Available [facility] ([facility]) [address] [facility] [place], [address], 05/29/2019 13:07:51 05/27/19 20 05/28/2019 CMP, serum or plasm a potassium 4.6 mmol/ L 3.5-5. 2 Not Available [facility] ([facility]) [address] [facility] [place], [address], 05/29/2019 13:07:51 05/27/19 20 05/28/2019 CMP, serum or plasm a chloride 103 mmol/ L 96-106 Not Available [facility] ([facility]) [address] [facility] [place], [address], 05/29/2019 13:07:51 05/27/19 20 05/28/2019 CMP, serum or plasm a carbon dioxide, total 25 mmol/ L 20-29 Not Available [facility] ([facility]) [address] [place], [address], 05/29/2019 13:07:51 05/27/1905/28/2019 CMP, serum or plasm a calcium 9.4 mg/dL 8.7-10 .2 Not Available [facility] ([facility]) [address] [facility] [address], [place], [address], 05/29/2019 13:07:51 05/27/19 20 05/28/2019 CMP, serum or plasm a protein, total 6.9 g/dL 6.0-8. 5 Not Available [facility] ([facility]) [address] [place], [address], 05/29/2019 13:07:51 05/27/1905/28/2019 CMP, serum or plasm a albumin 4.1 g/dL 3.8-4. 9 Not Available [facility] ([facility]) [address] [facility] [place], [address], 05/29/2019 13:07:51 05/27/1905/28/2019 CMP, serum or plasm a globulin, total 2.8 g/dL 1.5-4. 5 Not Available [facility] ([facility]) [address] [facility] [place], [address], 05/29/2019 13:07:51 05/27/19 20 05/28/2019 CMP, serum or plasm a A/G ratio 1.5 1.2-2. 2 Not Available [facility] ([facility]) [address] [place], [address], 05/29/2019 13:07:51 05/27/19 20 05/28/2019 CMP, serum or plasm a bilirubin, total <0.2 mg/dL 0.0-1. 2 Not Available [facility] ([facility]) [address] [facility] [address], [place], [address], 05/29/2019 13:07:51 05/27/19 20 05/28/2019 CMP, serum or plasm a alkaline phosphatase 108 IU/L 39-117 Not Available [facility] ([facility]) [address] [place], [address], 05/29/2019 13:07:51 05/27/19 20 05/28/2019 CMP, serum or plasm a AST (SGOT) 14 IU/L 0-40 Not Available [facility] ([facility]) [address] [place], [address], 05/29/2019 13:07:51 05/27/19 20 05/28/2019 CMP, serum or plasm a ALT (SGPT) 14 IU/L 0-32 Not Available [facility] ([facility]) [address] [place], [address], 05/29/2019 13:07:51 05/27/19 20 05/28/2019 CBC WBC 4.6 x10e3 /uL 3.4-10 .8 Not Available [facility] ([facility]) [address] [place], [address], 05/29/2019 13:07:52 05/27/19 20 05/28/2019 CBC RBC 4.32 x10e6 /uL 3.77-5 .28 Not Available [facility] ([facility]) [address] [facility] [place], [address], 05/29/2019 13:07:52 05/27/19 20 05/28/2019 CBC hemoglobin 13.3 g/dL 11.1-1 5.9 Not Available [facility] ([facility]) [address] [facility] [place], [address], 05/29/2019 13:07:52 05/27/19 20 05/28/2019 CBC hematocrit 39.7 % 34.0-4 6.6 Not Available [facility] ([facility]) [address] [facility] [place], [address], 05/29/2019 13:07:52 05/27/19 20 05/28/2019 CBC MCV 92 fL 79-97 Not Available [facility] ([facility]) [address] [facility] [place], [address], 05/29/2019 13:07:52 05/27/19 20 05/28/2019 CBC MCH 30.8 pg 26.6-3 3.0 Not Available [facility] ([facility]) [address] [facility] [place], [address], 05/29/2019 13:07:52 05/27/19 20 05/28/2019 CBC MCHC 33.5 g/dL 31.5-3 5.7 Not Available [facility] ([facility]) [address] [facility] [place], [address], 05/29/2019 13:07:52 05/27/19 20 05/28/2019 CBC RDW 13.0 % 11.7-1 5.4 Not Available [facility] ([facility]) [address] [facility] [place], [address], 05/29/2019 13:07:52 04/08/20 20 05/28/2019 CBC platelets 372 x10e3 /uL 150-45 0 Not Available [facility] ([facility]) [address] [facility] [address], [place], [address], 05/29/2019 13:07:52 05/27/19 20 05/28/2019 CBC NRBC PARTS CATALOGUER Not Available [facility] ([facility]) [address] [facility] [address], [place], [address], 05/29/2019 13:07:52 05/27/19 20 05/28/2019 lipid panel , serum cholesterol, total 179 mg/dL 100-19 9 Not Available [facility] ([facility]) [address] [facility], [place], [address], 05/29/2019 13:07:53 05/27/19 20 05/28/2019 lipid panel , serum triglyceride s 94 mg/dL 0-149 Not Available [facility] ([facility]) [address] [facility], [place], [address], 05/29/2019 13:07:53 05/27/19 20 05/28/2019 lipid panel , serum HDL cholesterol 71 mg/dL >39 Not Available [facility] ([facility]) [address] [facility] [address], [place], [address], 05/29/2019 13:07:53 05/27/19 20 05/28/2019 lipid panel , serum VLDL cholesterol arin 19 mg/dL 5-40 Not Available [facility] ([facility]) [address] [facility] [address], [place], [address], 05/29/2019 13:07:53 05/27/19 20 05/28/2019 lipid panel , serum LDL cholesterol calc 89 mg/dL 0-99 Not Available [facility] ([facility]) [address] [facility], [place], [address], 05/29/2019 13:07:53 05/27/19 20 05/28/2019 lipid panel , serum comment: PARTS CATALOGUER Not Available [facility] ([facility]) [address] [facility], [place], [address], 05/29/2019 13:07:53 05/27/1905/29/2019 TSH, serum or plasm a TSH-icma 1.6 uu/mL Refer ence Range : Non-P regna nt Adult 0.450 -4.50 0 Pregn kimberly First Trime ster 0.100 -4.00 0 Secon d Trime ster 0.200 -4.00 0 Third Trime ster 0.300 -4.50 0 Not Available [facility] [address] [facility], [place], [address], 05/29/2019 13:07:53 05/27/19 20 05/28/2019 cardi ovasc ular asses sment panel , serum interpretati on Note Suppl ement al repor t is avail able. Not Available [facility] ([facility]) [address] [facility], [place], [address], 05/29/2019 13:07:54 05/27/19 20 05/28/2019 cardi ovasc ular asses sment panel , serum pdf image . Not Available [facility] ([facility]) [address] [facility] [address], [place], [address], 05/29/2019 13:07:54 05/27/19 20 05/27/2019 HbA1c (hemo globi n A1c), blood HbA1c 6.6 Not Available In-Office Order Internal Use Only DO Not Attach Compendium DO Not Attach Compendium, Do Not Delete/merge, [id number] 05/27/2019 10:49:17 05/30/1906/14/2019 fecal occul t blood , immun oassa y, stool occult blood, fecal, ia Negati ve negati ve Not Available [facility] ([facility]) [address] [facility] [address], [place], [address], 06/15/2019 15:07:48 05/30/1906/12/2019 one speci men ident [...] of colle ction . Not Available [facility] ([facility]) [address] [facility] [address], [place], [address], 06/15/2019 15:07:49 10/21/19 20 10/21/2019 SARS CoV 2 RNA (COVI D-19) , QL, machine stoppage frequency checker-P CR, respi rator y speci men sars - cov - 2 PCR NEGATI VE mL Not Available [facility] (Lab) [address] [place], [address], 10/23/2019 09:55:30 10/21/1910/21/2019 SARS CoV 2 RNA (COVI D-19) , QL, machine stoppage frequency checker-P CR, respi rator y speci men covidcom1 [...] of this test metho d. Not Available [facility] (Lab) [address] [facility], [place], [address], 10/23/2019 09:55:30 10/21/1910/21/2019 SARS CoV 2 RNA (COVI D-19) , QL, machine stoppage frequency checker-P CR, respi rator y speci men covidcom2 Posit junito resul ts are indic ative of the prese nce of SARS- CoV-2 RNA and do not rule out bacte rial infec tion or co-in fecti on with other virus es. Not Available [facility] (Lab) [address], [place], [address], 10/23/2019 09:55:30 10/21/19 20 10/21/2019 SARS CoV 2 RNA (COVI D-19) , QL, machine stoppage frequency checker-P CR, respi rator y speci men covidcom3 Test resul ts shoul d be used along with other clini arin obser vatio ns, patie nt histo ry, epide miolo gical infor matio n and labor atory data in makin g the diagn osis. Not Available [facility] (Lab) [address], [place], [address], 10/23/2019 09:55:30 10/21/19 20 10/21/2019 SARS CoV 2 RNA (COVI D-19) , QL, machine stoppage frequency checker-P CR, respi rator y speci men covidcom4 [...] or revok ed soone r. Not Available [facility] (Lab) [address], [place], [address], 10/23/2019 09:55:30 10/21/19 20 10/21/2019 SARS CoV 2 RNA (COVI D-19) , QL, machine stoppage frequency checker-P CR, respi rator y speci men covidcom5 Gibran Rosalesi inna Labor atory is certi fied under CLIA- 88 as quali fied to perfo rm high compl exity testi ng. This testi ng [facility] [place] [address] (CLIA Licen se #[id number] 25064 5, CAP #[id number], AU-ID #[id number]). Not Available [facility] (Lab) [address] [place], [address], 10/23/2019 09:55:30 10/21/19 20 10/21/2019 SARS CoV 2 RNA (COVI D-19) , QL, machine stoppage frequency checker-P CR, respi rator y speci men covidcom6 Facts heet for healt hcare provi ders: https ://Jolancer.TorqBak .gov/ media /3492 56/do wnloa d Facts heet for patie nts: https ://Jolancer.TorqBak .gov/ media /1363 57/do wnloa d Not Available [facility] (Lab) [address], [place], [address], 10/23/2019 09:55:30 04/21/19 21 04/20/2020 exerc ise radhas s test No observ ation record ed. [address] [place], [address], 05/05/2020 16:44:44 04/21/19 21 04/20/2020 XR, chest , 2 view No observ ation record ed. [address] [place], [address], 04/22/2020 17:00:56 Result Notes None recorded. Problems Name Problem SNOMED Code Status Onset Date Resolution Date Notes Provider Name and Address Organization Details Recorded Time Pain in pelvis 07651736 Active Not Available [facility] 01/13/2020 15:46:24 Problem Notes None recorded. Procedures Surgical History Date Name Laterality Status Provider Name and Address Organization Details Recorded Time 0 Date of Last Mammogram completed Raysa Noe [place] [facility] 03/18/2020 15:28:20 0 Date of Last Pap Smear completed Raysa TolentinoGRANT gutierrez [place] - [facility] 03/18/2020 15:28:14 5 Most Recent Mammogram completed Neeru Nguyen MA [facility] S[facility] 08/18/2015 10:43:32 Tubal Ligation completed Neeru Nguyen MA [facility] SI 08/18/2015 10:43:32 Imaging Results [...] propionate 50 mcg/actuati on nasal spray,suspe nsion [place] 1 spray every day by intranasa l [...] Recorded Body height Body temperature Oxygen saturation Heart rate Body mass index (BMI) Body weight Systolic And Diastolic Provider Name and Address Organization Details Last Updated DateTime 1 165.1 cm 96.6 [degF] 97 % 91 /min 29.6 kg/m2 96026.4 4 g 106/70 mm[Hg] Raysa Noe [place] [facility] 1 15:30:25 Date Recorded Body height Body mass index (BMI) Body weight Systolic And Diastolic Provider Name and Address Organization Details Last Updated DateTime 05/01/2019 165.1 cm 29.7 kg/m2 79454.63 g 138/80 mm[Hg] Neeru Nguyen [place] [facility] 05/01/2019 10:27:24 Date Recorded Body height Body mass index (BMI) Body weight Oxygen saturation Heart rate Body temperature Systolic And Diastolic Provider Name and Address Organization Details Last Updated DateTime 0 165.1 cm 29.8 kg/m2 95677.0 3 g 95 % 70 /min 98.2 [degF] 108/68 mm[Hg] Bere Dominguez [place] - [facility] 0 10:19:23 Social History Question Answer Notes LastModified by [employer] ion Details LastModified Time Tobacco Smoking Status Former Smoker Mony Hoffmann MA null, [place] - [facility] 10/19/2019 15:54:29 What Is Your Level Of [...] Functional Status Question Answer Note LastModified by [employer] Details LastModified Time What is your level of alcohol consumption? None Information not available 10/19/2019 Do you or have you ever used smokeless tobacco? Never used smokeless tobacco Information not available 10/19/2019 Are you currently employed? Yes Information not available 10/19/2019 Are you able to care for yourself independently? Yes Information not available 10/19/2019 What is [...] Diagnosis SNOMED-CT Code Diagnosis ICD10 Code Diagnosis IMO Codes Diagnosis Note [id number] PAOLA Hinton [place] ([facility] [address]) [address] [facility] [place] [address] 08/18/2015 10:35:18 08/18/2015 11:18:34 Pain in pelvis 10115967 R10.2 Gynecologi c examination 61444645 Z01.661 [id number] [facility] [address] [facility] [place] [address] 08/03/2016 10:35:06 08/16/2016 08:30:55 Menopausal syndrome 146708455 N95.9 [id number] PAOLA Hinton Ziggy Sevilla [address] [place] [address] 05/08/2017 15:47:40 05/10/2017 12:24:36 Menopausal syndrome 943225395 N95.9 [id number] MD Ziggy Vergara [address] [place] [address] 06/21/2017 09:44:29 06/21/2017 10:39:36 Dysuria 47310255 R30.0 Increased frequency of urination 429975204 R35.0 Diabetes mellitus 424184 09 E11.9 Eczema 46328703 L20.89 [id number] CINDI Duncan [address] [place] [address] 03/25/2018 11:11:03 03/25/2018 13:15:17 Diabetes mellitus 88451961 E11.9 Chronic le ft maxillary sinusitis 5480749063 8617288 J32.0 [id number] CINDI Duncan [address] [place] [address] 05/13/2018 11:42:33 05/13/2018 12:51:52 [id number] PAOLA Hinton Mamie [address] OB [address] [facility] [place] [address] 09/03/2018 11:05:51 09/04/2018 08:37:20 Menopausal syndrome 014965561 N95.9 1. Discussed hormonal options and otc herbal options for menopausal management . Discussed risk factors and side effects associated with both options including increase risk of cancer, heart attack and stroke, blood clots. 2. Pt would like to continue use of hrt. 5. Pt to call and schedule for annual or sooner if needed. [id number] LUDY Hinton 14 OB [address] [facility] [place] [address] 05/01/2019 10:04:17 05/04/2019 10:56:00 Gynecologic examination 95822529 Z01.419 1. Counseled regarding prevention of STD's , condom use 2. Pap done and mammogram order given 3. Advised avoidance of tobacco, alcohol, and drugs . 4. Counseled regarding folic acid supplement ation, calcium needs and prevention of osteoporos is . 5. BSE reviewed and recommende d. 6. Follow up in one year or sooner if needed. Screening mammography 24 644931 Z12.31 Importance of yearly mammograms and sbe exam discussed with pt. Mammogram order given, pt verbalized understand ing. Female uri nary stress incontinence 80386338 N39.3 Pt educated on causes and s/s of incontinen ce including but not limited to pt weight, pushing/pu lling/lift ing, vaginal deliveries and hysterecto my. Pt to follow up with urology at pt's request for referral. Testostero ne level below reference range 582375964 R79.89 Will obtain hrt tests that pt had done with pcp and refer to endo for further evaluation . [id number] CINDI Duncan [address] [place] [address] 05/27/2019 10:03:45 05/27/2019 11:39:37 Type 2 diabetes mellitus 90644302 E11.9 Acute bron chitis with bronchospasm 59291569 J20.9 [id number] Colleen Singh PA-C [facility] [address] [place] [address] 10/19/2019 10:06:20 10/19/2019 16:30:22 Moderate persistent asthma 729726140 J45.42 [id number] JALYN Rose [address] [place] [address] 10/20/2019 15:19:36 10/21/2019 08:36:21 Suspected COVID-19 288740355 Z03.827 [id number] Colleen Singh PA-C [facility] [address] [place] [address] 03/18/2020 15:23:38 03/21/2020 08:53:53 Acute otitis externa of left ear 0248580041 928828 H60.512 Dyspnea on exertion 6084 5006 R06.09 Health Concerns Section Related Observation LastModified by Organization Detai ls LastModified Time None Recorded Concern Status LastModified by Organization Details LastModified Time None Recorded Advance Directives Directive None Recorded Payers Insurance Date Sequence Insurance Name Policy Number Policy Farooq Covered Member ID Farooq Member ID Guarantor Name 07/09/2023 1 [employer] [id number] Justine Dickson [id number] Justine Dickson 05/01/2019 2 [employer] - ALLIED BENEFITS - OPEN ACCESS Justine Dickson [id number] Justine Dickson 10/26/2020 1 [employer] - RAILROAD CLAIMS ([facility] [place]) PLAN A Justine Dickson [id number] Justine [place] Notes Date Note Type Note Provider Name and Address Organization Details Recorded Time 0 text/html Annual GYNReported by PatientHistoryFor history, patient reportsno gynecologic complaints.Genitourinary symptomsFor urinary symptoms, patient reportsincontinencebut reportsno hematuria. For vulva, patient reportsno genital lesion. For vagina, patient reportsnormal vaginal discharge. For menstrual cycle, (no menses in over 2 years).Breast symptomsFor breast, patient reportsno breast pain,no breast lump, andno nipple discharge.Endocrine symptomsFor sexual complaints, patient reportsno sexual complaints,no pain during intercourse, andnormal libido. For menopausal symptoms, patient reportsno menopausal symptomsandnormal vaginal lubrication.Psychological symptomsFor psychological symptoms, patient reportsno depression,no anxiety, andno pmdd.Preventative measuresFor preventive measures, patient reportsencourage self breast examination,encourage regular exercise,encourage no tobacco use,encourage regular mammograms starting age 40,followed with q3 year pap smear and high risk hpv typing, andneeds to schedule mammogram.ROS as noted in the HPI - states she now sees [facility] in [place] for pcp. states that pcp did hormonal labs on her and they were off. pt will fax copy of labs to this provider- pt states she is doing well with hrt, only occasional hot flashes- last pap 08/18/15 normal- needs mammogram order- would like referral for urology, states she urinates all of the time and has no bladder control PITER Hinton- Attn: Accounting,[address] [place], [address], [facility] 05/01/2019 10:54:47 0 text/html ROS as noted in the HPI Wheezing, SOB, dry cough, muscle weakness, clogged ears, headaches on bilateral tempels, fatigue..using albuterol once/day..symptoms for 3 days. no fever. history of getting PNA each year. had left over [employer] that she took and help. wheezing at rest. SOB with mild activity. Says symptoms aren't terrible right now but it's getting worse and she doesn't want repeats of years past. taking tylenol once every day. won't try ibuprofen r/t COVID. denies sneezing, nasal drainage, ear pain, chest pain, chills. diabetes..BG at home around 180s..follows with clinical research coordinator for hormone replacements. seasonal allergies. Colleen Singh PA-C Attn: Accounting,[address], [place], [address], [facility] 05/27/2019 10:53:04 0 text/html ROS as noted in the HPI wheezin season....needs meds...tested at work...no covid. Colleen Singh PA-C Attn: Accounting[address] [facility], [place], [address], [facility] 10/19/2019 16:01:59 0 text/html COVID ScreeningReported by PatientHPIFor associated symptoms, patient reportsshortness of breathbut reportsno cough. For comorbidities, patient reportsdiabetes. For onset/duration of fever, patient reportsno fever. COVID-19 Symptoms June 2019Reported by PatientUpper Respiratory SymptomsFor covid-19 signs and symptoms, patient reportscough resolved,fever resolved,chills resolved,repeated shaking with chills resolved,muscle pain resolved,headache resolved,sore throat resolved,loss of taste or smell resolved,vomiting or diarrhea resolved,fatigue resolved,anorexia resolved, andshortness of breath same. For associated symptoms, patient reportsno sputum production,no wheezing,no runny nose,no vomiting,no diarrhea,no body aches,no nausea,no change in mental status,no hypotension, andno tachycardia.ROS as noted in the HPI pt has a hx of diabetes and asthma and complained of sob yesterday STEFANIE DOWNING NP Attn: Accounting,[address] [facility], [place], [address], [facility] 10/20/2019 16:11:57 1 text/html ROS as noted in the HPI For the last week the patient has been having left ear [...] throat, and myalgias. Colleen Singh PA-C Attn: Accounting[address] [place], [address], [facility] 03/18/2020 16:20:24 OBGyn Episode No OBEpisode recorded.
--- OUTSIDE RECORDS SUMMARY | 2025-02-07 10:18 | XMS_ITS | Clinical Summary ---
Author Organization [facility] Address [address], [place] [address] Phone Care Team Providers Care Customer Assistance Associate Name Role Phone Claudia Gonzalez APRN, CERTIFIED MEDICAL TRANSCRIPTIONIST Unavailable [phone] Allergies No known active allergies Medications armodafinil (NUVIGIL) 150 MG Tablet armodafinil 150 mg tablet Active ergocalciferol (VITAMIN D) 82956 UNIT Capsule TAKE 1 CAPSULE BY MOUTH [...] complete this topic Human Papillomavirus (HPV) Immunization (No Doses Required) Completed Meningococcal Immunization (ACWY) Aged Out No longer [...] 6.5 % Blood 03/24/2019 Holley Patel APRN, [facility] F inal Result * CMP (COMPREHENSIVE METABOLIC PANEL) (03/24/2019) Blood us Holley Patel APRN, [facility] F inal Result from Last 3 Months or Most Recently Relevant to Health Maintenance Insurance [employer] Care Teams Customer Assistance Associate Relationship Specialty Start Date End Date Claudia Gonzalez APRN, CERTIFIED MEDICAL TRANSCRIPTIONIST [address] [place] [address] [address] [place] [address] [facility] 05/05/19
--- OUTSIDE RECORDS SUMMARY | 2025-02-07 10:18 | XMS_ITS | Encounter Summary ---
Author Organization [facility] Address [address] [place] [address] Care Team Providers Care Casing Worker Name Role Phone None, Provider Primary Care Provider Unavaila ble Justine Mei Primary Care Provider [phone] Encounter Details Date Type Department Care Team (Latest Contact Info) Description 10/24/2017 Abstract [facility] , Generic Conversion, Social History [...] on filedocumented in this encounter Care Teams Casing Worker Relationship Specialty Start Date End Date None, Provider, PCP - General 12/17/17 02/12/18 Justine Mei PA [address] [place] [address] PCP - General 02/13/18 documented as of this encounter
--- OUTSIDE RECORDS SUMMARY | 2025-02-07 10:18 | XMS_ITS | Encounter Summary ---
Author Organization [facility] Address [address] [place] [address] Care Team Providers Care Apprentice Jockey Name Role Phone None, Provider Primary Care Provider Unavaila ble Justine Mei Primary Care Provider [phone] Encounter Details Date Type Department Care Team (Late st Contact Info) Description 01/25/2018 Abstract [facility] [address] [place] [phone] Sagar Reed MD [address] [place] [id number] Social History Tobacco Use Types Packs/Day Years [...] on filedocumented in this encounter Care Teams Apprentice Jockey Relationship Specialty Start Date End Date None, Provider, PCP - General 12/17/17 02/12/18 Justine Mei PA [address] [place] [address] PCP - General 02/13/18 documented as of this encounter
--- OUTSIDE RECORDS SUMMARY | 2025-02-07 10:18 | XMS_ITS | Clinical Summary ---
Author Organization [facility] Address [address] [place] [address] Care Team Providers Care Handstitching Machine Collar Feller Name Role Phone Justine Mei Primary Care Provider [phone] Allergies Active Allergy Reactions Criticality Noted Date [...] Comments Blood Pressure 140/66 02/13/2018 2:35 PM CONDENSER WINDER Pulse 93 02/13/2018 2:35 PM CONDENSER WINDER Temperature - - Respiratory Rate - - [...] patient's age to complete this topic Insurance [employer] Care Teams Handstitching Machine Collar Feller Relationship Specialty Start Date End Date Justine Mei PA [address] [place] [address] PCP - General 02/13/18
--- OUTSIDE RECORDS SUMMARY | 2025-02-07 10:18 | XMS_ITS | Clinical Summary ---
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 Gender Identity Not on file Sexual Orientation [...] to Health Maintenance Insurance [employer]ESS [facility] CHOICE PLUS [facility] HMO/PPO Address: [address] [address] [place] [address] WORKERS COMPENSATION GENERIC Member Subscriber Plan / Payer (Ef fective 2024-Present) Name:Justine Dickson Relation to Subscriber:Employee Name:[employer] (Work) Address: [address] [place] [address] Payer ID:[id number] Group ID:Not on file Type:WORKERS COMPENSATION Address: [address] CHOICE PLUS [facility] HMO/PPO Address: [facility] [id number] [place], [place] [id number] Care Teams Sheet Cutter Relationship Specialty Start Date End Date No, Physician PCP - General 08/16/24
[2025-02-07 10:25] VITALS: BP 142/58; PULSE 114; RESP 20; TEMP 36.3; O2SAT 95
--- NOTE | 2025-02-07 10:27 | ED_ITS ---
HPI - URI/Sore Throat General Chief Complaint: Upper Respiratory Infection Stated Complaint: Cough/Chest Congestion/Headache Time Seen by Provider: 02/07/25 10:27 Source: patient, RN notes reviewed and old records reviewed Mode of arrival: ambulatory Limitations: no limitations History of Present Illness HPI Narrative: 59 year old female who presents to [facility] care with complaints of cough seen 01/15/2025 received steroid, benzonatate, and Peridex at that time. Patient reports rhat she has headache, yellow snot cough and weakness for over 2 weeks. Patient reports that she has been taking Advil and Robitussin. Patient reports that she had some lesions in her mouth which have improved with Peridex mouth wash with just small area of swelling under tongue remaining and wishes to have refill of the peridex. MD elicited complaint: cough, rhinorrhea, nasal congestion and sinus pain Pain scale (0-10): 5 Able to tolerate fluids by mouth: Yes Treatments prior to arrival: ibuprofen and other (Robitussin) Related Data Home Medications ?Medication ?Instructions ?Recorded ?Confirmed ?Last Taken ?Type armodafinil 250 mg tablet 250 mg PO DAILY 10/18/21 Unknown History glipizide 5 mg tablet 5 mg PO BID 09/22/24 5 Unknown History desvenlafaxine succinate 50 mg mg PO 01/15/25 Unknown History tablet,extended release 24 hr fluticasone 250 mcg-salmeterol 50 inhalation 01/15/25 Unknown History mcg/dose blistr powdr for inhalation metformin 1,000 mg tablet mg 01/15/25 Unknown History topiramate 50 mg tablet mg 01/15/25 Unknown History Allergies Allergy/AdvReac Type Severity Reaction Status Date / Time No Known Allergies Allergy Verified 02/07/25 10:25 Review of Systems Review of Systems: CONSTITUTIONAL: reports malaise, no chills, sweats, or fever. EYES: Denies visual changes, redness, or discharge. ENT: Reports rhinorrhea, congestion, sinus pain,no otalgia and no sore throat. CARDIOVASCULAR: Denies chest pain, palpitations, or edema. RESPIRATORY: Reports productive cough of yellow phlegm? Denies dyspnea. GASTROINTESTINAL: Denies abdominal pain, nausea, vomiting, diarrhea SKIN: Denies rash or itching. MUSCULOSKELETAL: Denies myalgia. NEUROLOGIC: reports headache. 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 There is no relevant family history pertinent to the presenting complaint Exam Narrative: GENERAL: ill-appearing, well-nourished, and in no acute distress. HEAD: Normocephalic EYES: PERRLA, conjunctivae clear ENT: Nares clear, turbinates edematous and erythematous, yellow discharge, sinus pressure and headache. Mucous membranes moist. TM pearly del cid with dull light reflex bilaterally; no tragal tenderness. Oropharynx erythematous without lesions. Tonsils not present and throat without exudate, no drooling, no hoarseness, no trismus, uvula midline post nasal drainage. NECK: Supple. No lymphadenopathy CHEST: Scattered wheezing noted on auscultation, breath sounds equal. + wheezing,no rhonchi, rales, or stridor. No respiratory distress, speaks in full sentences.productive cough yellow mucous, SAO2 95% on room air, no tachypnea HEART: Regular rate and rhythm. No murmur heard. SKIN: Warm, dry, no rash. NEURO: Alert and oriented x3. PSYCH: Normal mood and affect Course Course Level of Care: Express Care Visit Vital Signs Vital signs: Vital Signs Temperature 36.3 C L 02/07/25 10:25 Pulse Rate 114 H 02/07/25 10:25 Respiratory Rate 20 02/07/25 10:25 Blood Pressure 142/58 H 02/07/25 10:25 Pulse Oximetry 95 02/07/25 10:25 Oxygen Delivery Room Air 02/07/25 10:25 Temperature 36.3 C L 02/07/25 10:25 Pulse Rate 114 H 02/07/25 10:25 Respiratory Rate 20 02/07/25 10:25 Blood Pressure 142/58 H 02/07/25 10:25 Pulse Oximetry 95 02/07/25 10:25 Oxygen Delivery Room Air 02/07/25 10:25 reviewed MDM MDM Narrative Medical decision making narrative: Patient has scattered wheezing with respiratory congestion noted and also 2 weeks of sinus drainage pressure and headaches. Will treat for asthma exacerbation and sinusitis with Augmentin Prednisone and patient to use inhaler up to 4 times a day for the next 2 days and then as needed and ordered.Patient is aware of diagnosis, understands and agrees to treatment plan. Anticipatory guidance given. Patient agrees to follow-up as directed and is aware of reasons to seek care at the emergency department. Portions of this record may have been created with voice recognition software Differential Diagnosis Differential Diagnosis: Differential diagnostic considerations for upper respiratory infection include upper respiratory infection, croup, otitis media, sinusitis, viral infection, bronchitis, influenza, pharyngitis, strep, uvulitis.? Critical Care Time Critical Care Time Critical Care Time: No Discharge Plan Discharge Clinical Impression: Asthma exacerbation Qualifiers: Asthma severity: moderate Asthma persistence: persistent Qualified Code(s): J45.41 - Moderate persistent asthma with (acute) exacerbation Sinusitis Qualifiers: Sinusitis location: pansinusitis Chronicity: acute Recurrence: not specified as recurrent Qualified Code(s): J01.40 - Acute pansinusitis, unspecified Patient Disposition: Home Condition: Stable Instructions: Antibiotic Form, Sinusitis (ED), Bronchospasm (ED) Additional Instructions: Increase fluids especially juices and water Lbmu-lnz-llevcuf cough and cold medicine of your choice for your symptoms such as Delsym or Robitussin DM Cough tablets as directed for cough--do not bite, chew or suck on--swallow whole Continue your inhaler/nebulizer as directed Steroids as directed--take with food heat to the face 20-30 minutes 4-6 times a day for pain Salt water gargles, throat lozenges or throat sprays as desired Antibiotic as directed--finished the medication Peridex mouth wash Tylenol or Ibuprofen or any fever or pain per package direction If your symptoms persist, change or worsen significantly before you can contact your personal physician then please, without delay, go to the emergency department for further evaluation. Follow-up with PCP in 7-10 days or sooner if needed Follow up with PCP soon in regards to your blood pressure which is elevated above threshold for referral. Blood pressure above 120/80 may indicate pre- hypertension. Patient Language: Hungarian Prescriptions: New amoxicillin-pot clavulanate 875-125 mg tablet 1 tablet PO Q12H Qty: 20 0RF Rx Instructions: recommend you take with food and either take a probiotic or eat yogurt while taking this medication prednisone 20 mg tablet 20 mg PO BID Qty: 10 0RF Rx Instructions: take in am and early pm make sure to take pm dose before 1700 chlorhexidine gluconate [Peridex] 0.12 % mouthwash 15 ml mucous membrane BID Qty: 473 0RF No Action albuterol sulfate 90 mcg/actuation HFA aerosol inhaler 2 puff inhalation Q4H PRN (Reason: shortness of breath or wheezing) Qty: 8.5 0RF fluticasone propion-salmeterol 250-50 mcg/dose blister with device INHALATION metformin 1,000 mg tablet topiramate 50 mg tablet desvenlafaxine succinate 50 mg tablet extended release 24 hr PO benzonatate 200 mg capsule 200 mg PO TID PRN (Reason: cough) Qty: 20 0RF chlorhexidine gluconate 0.12 % mouthwash 15 ml buccal BID 7 Days Qty: 120 0RF armodafinil 250 mg tablet 250 mg PO DAILY glipizide 5 mg tablet 5 mg PO BID Follow-up/Referrals: UNKNOWN,DOCTOR [Primary Care Provider] Time of Disposition: 10:43 Quality Chad Coma Scale Eyes: Open Verbal: Oriented and Alert Motor: Follows Commands Chad Coma Total Score: 15
== END 2025-02-07 10:48 | disposition home or self-care (01) ==
PROVIDERS: Emergency Provider Registered Nurse
DX: J45.41 Moderate persistent asthma with (acute) exacerbation (principal); J01.40 Acute pansinusitis, unspecified; E11.9 Type 2 diabetes mellitus without complications; Z79.84 Long term (current) use of oral hypoglycemic drugs; F32.A Depression, unspecified
CPT/HCPCS: 99213; G0463